=== PATIENT | male | born 1970 | race Caucasian/White ===

== ENCOUNTER 2019-08-09 17:25 | Emergency (ER) | payer OTHER, SELFPAY ==
--- NOTE | 2019-08-09 17:39 | ED.NAVMDI ---
HPI - Nausea/Vomiting/Diarrhea General Chief complaint: Nausea/Vomiting/Diarrhea Stated complaint: throwing up Time Seen by Provider: 08/09/19 17:39 Source: patient Mode of arrival: ambulatory Limitations: no limitations History of Present Illness HPI Narrative: 49-year-old man with history of type 2 diabetes comes in today complaining of vomiting and diarrhea which started this morning. States that he has had some abdominal pain since after he started vomiting and he feels thirsty. He has been urinating more often than usual and states that he has had some tarry stools. Is been unable to take his medications today. He is currently under treatment for UTI for which he is taking tetracyclines and metronidazole. MD elicited complaint: nausea, vomiting, diarrhea and abdominal pain Onset (ago): hour(s) (12) Description of vomiting: food contents Description of diarrhea: watery and black tarry Associated nausea: Yes Associated abdominal pain: Yes Location of pain: diffuse Radiation: does not radiate Pain consistency: intermittent Severity: moderate Quality: cramping Exacerbating factors: none Relieving factors: none Context: recent antibiotic use and marijuana use Associated symptoms: nausea/vomiting Treatment prior to arrival: none Related Data Home Medications Medication Instructions Recorded Confirmed metformin 1,000 mg PO BID 07/04/19 08/09/19 Lantus Solostar U-100 Insulin 40 unit SUBCUT QAM 07/05/19 08/09/19 metronidazole 500 mg PO Q8H 08/09/19 08/09/19 omeprazole 20 mg PO BID 08/09/19 08/09/19 tetracycline 500 mg PO QID 08/09/19 08/09/19 Allergies Allergy/AdvReac Type Severity Reaction Status Date / Time No Known Allergies Allergy Verified 07/04/19 02:56 Review of Systems Constitutional: Constitutional: Denies chills, Reports fatigue and Denies fever(s) Eyes: Eyes: Denies change in vision and Denies photophobia ENT: Denies dysphagia, Denies nasal congestion and Denies sore throat Cardiovascular: Cardiovascular: Denies chest pain and Denies radiating jaw, neck or arm pain Respiratory: Respiratory: Denies cough, Denies dyspnea and Denies wheezing Gastrointestinal: Gastrointestinal: Reports abdominal pain, Reports diarrhea, Reports nausea and Reports vomiting Genitourinary: Genitourinary: Denies hematuria, Denies oliguria, Denies dysuria and Reports urinary frequency Musculoskeletal: Musculoskeletal: Denies back pain, Denies arthralgias, Denies joint swelling and Denies muscle cramps Integumentary/Breasts: Skin/Breast: Denies pruritus, Denies erythema and Denies rash Neurologic: Denies vertigo, Denies dizziness and Denies syncope Psychiatric: Psychiatric: Denies anxiety and Denies depression Endocrine: Endocrine: Reports fatigue, Reports polydipsia and Reports polyuria Hematologic/Lymphatic: Hematologic/Lymphatic: Denies easy bleeding and Denies easy bruising Allergic/Immunologic: Allergic/Immunologic: Denies lip swelling and Denies wheezing PMFSH Past Medical History Medical History (Updated 08/09/19 @ 20:52 by Filippo Galeas MD) Diabetes mellitus GERD (gastroesophageal reflux disease) Surgical History Surgical History H/O hand surgery Social History Social History Additional smoking assessment comments: Smokes marijuana daily Alcohol intake: former Substance use type: marijuana Last use: daily Gender identity (if verbalized by the patient): Male Spiritual care concerns: No Agree to blood products: Yes Exam Const: General: alert and ill appearing ( Mildly) Orientation/consciousness: patient oriented x3 Other: [id number] acute distress. HENMT: Ears: external ears normal, TM's normal bilaterally and EAC's normal Mouth: Yes dry mucous membranes Throat: posterior oropharynx normal ( except for mild diffuse erythema without edema) Eyes: Cornea:
[2019-08-09 17:45] LABS: Glucose Point of Care 259 (65-105)
[2019-08-09 17:51] VITALS: BP 161/85; PULSE 84; RESP 15; TEMP 37.2; O2SAT 99
[2019-08-09] MEDS: ONDANSETRON INJ 4 MG/2 ML VIAL IV PUSH (18:02)
[2019-08-09] MEDS: SODIUM CHLORIDE 0.9% IV 1,000 ML 999 ML IV CONT (18:02)
[2019-08-09 18:03] VITALS: BP 131/58; BP 137/82; PULSE 75; PULSE 99
[2019-08-09 18:03] LABS: Basophils Absolute Auto 0.03 K/mm3 (0.00-0.10); Basophils Percent Auto 0.2 % (0.0-1.0); Hematocrit 43.7 % (40.0-54.0); Hemoglobin 15.4 g/dL (14.0-18.0); Immature Granulocyte Absolute 0.06 K/mm3 (0.00-0.00); Immature Granulocyte Percent A 0.5 % (0.0-0.0); Lymphocytes Absolute Auto 0.59 K/mm3 (1.10-4.50); Lymphocytes Percent Auto 4.9 % (18.0-42.0); Mean Corpuscular HGB Conc 35.2 g/dL (32.0-36.0); Mean Corpuscular Volume 88.1 fL (78.0-102.0); Mean Platelet Volume 12.2 fl (8.7-11.0); Monocytes Percent Auto 0.8 % (2.0-11.0); Neutrophils Absolute Auto 11.3 K/mm3 (1.7-7.2); Neutrophils Percent Auto 93.6 % (50.0-70.0); Platelet Count Result 177 K/mm3 (150-420); Red Blood Count 4.96 M/mm3 (4.70-6.10); Red Cell Distribution Width 11.7 % (11.6-14.4); White Blood Count 12.1 K/mm3 (4.8-10.8)
[2019-08-09 18:05] VITALS: BP 149/86; PULSE 121
[2019-08-09 18:18] LABS: Alanine Aminotransferase 148 U/L (16-63); Albumin Level 4.6 g/dL (3.4-5.0); Alkaline Phosphatase 71 U/L (46-116); Anion Gap 21.7 mmol/L (7-16); Aspartate Amino Transferase 63 U/L (15-37); Bilirubin,Total 0.7 mg/dL (0.00-1.00); Blood Urea Nitrogen 18 mg/dL (7-18); Calcium 9.3 mg/dL (8.5-10.1); Carbon Dioxide 24 mmol/L (21-32); Chloride 99 mmol/L (98-108); Estimated CRCL calculation 74 ml/min; Estimated Glomerular Filt Rate > 60; Glucose 359 mg/dL (70-99); Lipase 38 U/L (73-393); Osmolality Calculated 307 mOsm/kg (285-295); Potassium 3.7 mmol/L (3.5-5.1); Sodium 141 mmol/L (136-145); Total Protein 7.8 g/dL (6.4-8.2)
[2019-08-09 19:07] LABS: Appearance Urine Clear (Clear); Bilirubin Urine Negative (Negative); Color Urine Yellow (Yellow); Glucose Urine UA 3+ (Negative); Ketones Urine 3+ (Negative); Leukocyte Esterase Ur Negative LEU/UL (Negative); Nitrate Urine Negative (Negative); Protein Urine Trace (Negative); Specific Grav Ur 1.015 (1.010-1.020); Urobilinogen Urine 0.2 mg/dL (0.2-1.0)
[2019-08-09 19:16] LABS: Add Urine Microscopic? YES; Bacteria Urine Trace /hpf; Blood Urine Trace (Negative); RBC Urine 0-2 /hpf (0-2); Squamous Epithelial Cell Urine Rare /hpf (Few); WBC Urine 0-3 /hpf (0-3)
[2019-08-09 20:43] LABS: Occult Blood Negative (Negative)
[2019-08-09 20:59] VITALS: RESP 15
== END 2019-08-09 21:06 | disposition home or self-care (01) ==
PROVIDERS: Emergency Provider Emergency Medicine; PCP Nurse Practitioner
DX: K52.9 Noninfective gastroenteritis and colitis, unspecified (principal); E86.0 Dehydration
CPT/HCPCS: 36415; 80053; 81001; 82272; 83690; 85025; 87040; 87045; 87046; 87324; 87427; 96361; 96374; 99283; 99284; J2405; J7030

== ENCOUNTER 2019-08-10 17:09 | Emergency (ER) | payer OTHER, SELFPAY ==
--- NOTE | ~2019-08-10 | XR_ITS ---
EXAMINATION: XR chest 2V 08/10/2019 19:52 INDICATION: Elevated white blood cell count. Dehydration. PROCEDURE: 2 view chest COMPARISON: 07/21/2018 FINDINGS: The lungs are clear. The cardiomediastinal silhouette is within normal limits. There are no pleural effusions. There is no pneumothorax suspected. IMPRESSION: 1: NO ACUTE CARDIOPULMONARY DISEASE. Reviewed, dictated and finalized at location A. UCTION BROACHING MACHINE OPERATOR
[2019-08-10 17:15] VITALS: BP 174/83; PULSE 107; RESP 20; TEMP 36.8; O2SAT 100
[2019-08-10 17:33] LABS: Appearance Urine Clear (Clear); Bilirubin Urine Negative (Negative); Color Urine Yellow (Yellow); Glucose Urine UA 3+ (Negative); Ketones Urine 3+ (Negative); Leukocyte Esterase Ur Negative LEU/UL (Negative); Nitrate Urine Negative (Negative); Protein Urine Negative (Negative); Specific Grav Ur 1.025 (1.010-1.020); Urobilinogen Urine 0.2 mg/dL (0.2-1.0); pH Urine 5.5 (5.0-8.0)
--- NOTE | 2019-08-10 17:33 | ED.NAVMDI ---
HPI - Nausea/Vomiting/Diarrhea General Chief complaint: Nausea/Vomiting/Diarrhea Stated complaint: vomiting Source: patient Mode of arrival: ambulatory Limitations: no limitations History of Present Illness HPI Narrative: This is a 49-year-old gentleman that presents with nausea vomiting with mild diffuse abdominal pain states that he has been having some watery diarrhea, patient is insulin dependent type 2 diabetic on Lantus 40units. By has some nausea and vomiting has been persistent since last night. Patient had similar symptoms some 24 hours ago was seen in this ER and was sent home with Zofran. The patient was unable to continue his Lantus and continued of the nausea vomiting with diffuse abdominal discomfort and pain. The patient had a workup last night did show a higher blood glucose levels with a anion gap of 21, the nausea vomiting despite Zofran had worsened and the patient thought that it was best to avoid eating and had not been taking his 40units of Lantus. Patient denies any shortness of breath there is no chest pain no dysuria. MD elicited complaint: nausea, vomiting, diarrhea and abdominal pain Pertinent past history: cyclical vomiting Onset (ago): day(s) Description of vomiting: watery and bilious Description of diarrhea: watery Associated nausea: Yes Associated abdominal pain: Yes Location of pain: diffuse Radiation: diffuse Pain consistency: now resolved Severity: mild Quality: cramping Exacerbating factors: vomiting Relieving factors: none Related Data Home Medications Medication Instructions Recorded Confirmed metformin 1,000 mg PO BID 07/04/19 08/10/19 Lantus Solostar U-100 Insulin 40 unit SUBCUT QAM 07/05/19 08/10/19 metronidazole 500 mg PO Q8H 08/09/19 08/10/19 omeprazole 20 mg PO BID 08/09/19 08/10/19 tetracycline 500 mg PO QID 08/09/19 08/10/19 Allergies Allergy/AdvReac Type Severity Reaction Status Date / Time No Known Allergies Allergy Verified 07/04/19 02:56 Review of Systems Review of Systems: All systems reviewed & are unremarkable except as noted in HPI and below PMFSH Past Medical History Medical History Diabetes mellitus GERD (gastroesophageal reflux disease) Surgical History Surgical History H/O hand surgery Family History Family History Grandparent Diabetes mellitus Father Acute myocardial infarction Father Cerebrovascular accident Mother FH: throat cancer Social History Social History Additional smoking assessment comments: Smokes marijuana daily Alcohol intake: former Substance use type: marijuana Last use: daily Gender identity (if verbalized by the patient): Male Spiritual care concerns: No Agree to blood products: Yes Exam Const: General: no acute distress Orientation/consciousness: patient oriented x3 HENMT: Head: normal to inspection Eyes: Cornea: corneas normal Pupils: Equal, round and reactive pupils present EOM: EOMs intact bilaterally Neck: Neck: normal visual inspection Chest: Chest palpation & inspection: normal inspection of the chest Resp: Effort & Inspection: normal respiratory effort Cardio: Rate: regular rate Rhythm: regular rhythm GI: GI Palp: Yes Soft to palpation and Yes Tenderness to palpation present (GI) : Testes: Testes normal Back/Spine/Pelvis: Back: no CVA tenderness Skin: General skin exam: normal color Rashes: no rashes Neuro: General: patient oriented x3, moves all extremities, no meningeal signs and no focal motor deficits Speech: normal speech Extrem: General: normal to inspection Psych: Mental Status: mental status grossly normal Course Course Emergency Course: Patient after reassessment as feeling considerably better with some Zofran and Reglan and with IV
[2019-08-10 17:35] LABS: Add Urine Microscopic? YES; Blood Urine Trace (Negative)
[2019-08-10 17:37] LABS: RBC Urine 0-2 /hpf (0-2); Squamous Epithelial Cell Urine Rare /hpf (Few); WBC Urine 0-3 /hpf (0-3)
[2019-08-10 17:38] LABS: Bacteria Urine Trace /hpf
[2019-08-10] MEDS: ONDANSETRON INJ 4 MG/2 ML VIAL IV PUSH (17:46)
[2019-08-10] MEDS: SODIUM CHLORIDE 0.9% IV 1,000 ML 999 ML IV CONT (17:46)
[2019-08-10 18:04] LABS: Basophils Absolute Auto 0.05 K/mm3 (0.00-0.10); Basophils Percent Auto 0.3 % (0.0-1.0); Eosinophils Absolute Auto 0.01 K/mm3 (0.02-0.50); Eosinophils Percent Auto 0.1 % (1.0-6.0); Hematocrit 46.9 % (40.0-54.0); Hemoglobin 15.9 g/dL (14.0-18.0); Immature Granulocyte Percent A 1.1 % (0.0-0.0); Immature Platelet Fraction Pct 6.4 % (1.0-7.0); Lymphocytes Absolute Auto 1.23 K/mm3 (1.10-4.50); Lymphocytes Percent Auto 6.6 % (18.0-42.0); Mean Corpuscular HGB Conc 33.9 g/dL (32.0-36.0); Mean Corpuscular Hemoglobin 31.4 pg (27.0-31.0); Mean Corpuscular Volume 92.5 fL (78.0-102.0); Mean Platelet Volume 13.2 fl (8.7-11.0); Monocytes Absolute Auto 0.42 K/mm3 (0.10-0.90); Monocytes Percent Auto 2.2 % (2.0-11.0); Neutrophils Absolute Auto 16.8 K/mm3 (1.7-7.2); Neutrophils Percent Auto 89.7 % (50.0-70.0); Platelet Count Result 239 K/mm3 (150-420); Red Blood Count 5.07 M/mm3 (4.70-6.10); Red Cell Distribution Width 11.9 % (11.6-14.4); White Blood Count 18.7 K/mm3 (4.8-10.8)
[2019-08-10] MEDS: METOCLOPRAMIDE HCL INJ 10 MG/2 ML VIAL IV PUSH (18:07)
[2019-08-10 18:18] LABS: Alanine Aminotransferase 118 U/L (16-63); Albumin Level 4.6 g/dL (3.4-5.0); Alkaline Phosphatase 76 U/L (46-116); Anion Gap 35.3 mmol/L (7-16); Aspartate Amino Transferase 31 U/L (15-37); Bilirubin,Total 0.9 mg/dL (0.00-1.00); Blood Urea Nitrogen 36 mg/dL (7-18); Calcium 9.2 mg/dL (8.5-10.1); Carbon Dioxide 10 mmol/L (21-32); Chloride 94 mmol/L (98-108); Estimated Glomerular Filt Rate 47; Lipase 27 U/L (73-393); Potassium 4.3 mmol/L (3.5-5.1); Sodium 135 mmol/L (136-145); Total Protein 7.7 g/dL (6.4-8.2)
[2019-08-10 18:19] LABS: Glucose 562 mg/dL (70-99); Osmolality Calculated 314 mOsm/kg (285-295)
[2019-08-10 18:20] VITALS: BP 138/76; PULSE 114; RESP 20; O2SAT 97
[2019-08-10] MEDS: INSULIN HUMAN REGULAR (*BKC) 100 UNITS/ML 10 UNITS IV PUSH (18:24)
--- NOTE | 2019-08-10 18:28 | PC.NURSE ---
SPOKE WITH PATIENT CONCERNING ADMISSION, PT AGREES - WILL AWAIT ORDERS
--- NOTE | 2019-08-10 18:41 | PC.NURSE ---
ERP WISHES TO TRANSFER PATIENT INSTEAD OF ADMISSION, WILL AWAIT CALL BACK FROM [facility]
[2019-08-10] MEDS: SODIUM CHLORIDE 0.9% IV 1,000 ML 999 ML (18:48)
[2019-08-10 19:03] VITALS: BP 114/61; PULSE 117; RESP 17; O2SAT 97
--- NOTE | 2019-08-10 19:03 | PC.NURSE ---
FSBS [id number]
[2019-08-10 19:25] VITALS: BP 137/82; PULSE 114; RESP 17; O2SAT 96
--- NOTE | 2019-08-10 19:32 | PC.NURSE ---
FSBS [id number]
[2019-08-10] MEDS: SODIUM CHLORIDE 0.9% IV 1,000 ML 200 ML (19:34)
--- NOTE | 2019-08-10 20:08 | PC.NURSE ---
INSULIN DRIP INFUSING AT THIS TIME RIGHT HAND, UNABLE TO CO-SIGN WITH EVA MLUTANI D/T NOT HAVING BARCODE
[2019-08-10 20:35] VITALS: BP 135/69; PULSE 117; RESP 16; O2SAT 98
--- NOTE | 2019-08-10 20:40 | PCDIET ---
INSULIN GTT REMOVED THERE IS NO CRITICAL CARE TO GO ON TRANSPORT WITH EMS
[2019-08-10 21:13] LABS: Glucose Point of Care 416 (65-105)
[2019-08-10 21:13] LABS: Glucose Point of Care 346 (65-105)
== END 2019-08-10 20:40 | disposition short-term general hospital (02) ==
PROVIDERS: Emergency Provider Emergency Medicine; PCP Nurse Practitioner
DX: E13.10 Other specified diabetes mellitus with ketoacidosis without coma (principal); K21.9 Gastro-esophageal reflux disease without esophagitis
CPT/HCPCS: 36415; 71046; 80053; 81001; 83690; 85025; 85055; 96361; 96374; 96375; 99285; J1815; J2405; J2765; J7030

== ENCOUNTER 2019-08-10 21:12 | Inpatient (IN) | payer OTHER, SELFPAY ==
--- NOTE | 2019-08-10 21:12 | ADMGEN ---
This patient, Aj Cox, was admitted to Intensive Care Unit-8. Patient/family oriented to hospital policies and general routines including ID bracelet, bed and alarms, visiting hours, pain management, procedures, bathroom and other care routines, personal items, smoking policy, room service/diet, and visiting hours. Valuables list has been completed. Information on how to activate the Rapid Response Team has been discussed. Patient/Family are encouraged to report perceived risks to care and to ask questions if they do not understand what they are told or what they should do.
[2019-08-10 21:24] VITALS: BP 121/69; PULSE 106; RESP 12; TEMP 37.2
[2019-08-10 21:48] VITALS: BMI 24.4
--- NOTE | 2019-08-10 21:50 | PM.IMHP ---
H&P: HPI History of Present Illness Chief complaint: DKA Narrative: This is a 49-year-old insulin-dependent diabetic male who presented to our hospital as a direct admission from [facility] secondary to acute diabetic ketoacidosis. The patient has had ongoing nausea and vomiting for the past 2 days. His last normal meal was Wednesday night when he ate dinner. The next day he developed significant nausea and vomiting. He does report that recently he had been diagnosed with a kidney infection and has been on antibiotics from his PCP. The patient was seen at [facility] yesterday and was sent home at 10:00 p.m. when he was able to tolerate a half a glass of soda. Routine labs demonstrated that the patient was in acute DKA yesterday as well. The patient returned to the hospital today as he continued to have ongoing nausea, vomiting, and upset stomach. He also reports increased urination over the past few days. He admits that he has not been taking his insulin for the past few days since he has not been able to keep any food down. He denies any type of fevers or chills, sore throat, cough, chest pain, leg swelling, dysuria, hematuria, diarrhea, or rectal bleeding. The patient has had diffuse mild abdominal discomfort which she believes is secondary to his retching. Today it at [facility] routine labs were obtained again and demonstrated that the patient was in acute DKA with an elevated gap 35 and a blood glucose of 562 mg/dL. The patient was treated with 2 L of normal saline IV bolus and was started on an insulin drip. We been asked to admit the patient to our hospital for ongoing care in our intensive care unit. Welding Lead Burner, Dr. Francisco has been consulted. Review of Systems Review of Systems: All systems reviewed & are unremarkable except as noted in HPI and below PMFSH Past Medical History Medical History Diabetes mellitus GERD (gastroesophageal reflux disease) Surgical History Surgical History H/O hand surgery Family History Family History Grandparent Diabetes mellitus Father Acute myocardial infarction Father Cerebrovascular accident Mother FH: throat cancer Social History Social History Smoking status: Never smoker Additional smoking assessment comments: Smokes marijuana daily Alcohol intake: never Substance use: current Substance use type: marijuana Last use: daily Gender identity (if verbalized by the patient): Male Spiritual care concerns: No Agree to blood products: Yes Meds Home Medications and Allergies Home Medications Medication Instructions Recorded Confirmed Type metformin 1,000 mg PO BID 07/04/19 08/10/19 History Lantus Solostar U-100 Insulin 40 unit SUBCUT QAM 07/05/19 08/10/19 History metronidazole 500 mg PO Q8H 08/09/19 08/10/19 History omeprazole 20 mg PO BID 08/09/19 08/10/19 History ondansetron 4 mg PO Q6H PRN #14 tablet 08/09/19 08/10/19 Rx tetracycline 500 mg PO QID 08/09/19 08/10/19 History buspirone 15 mg PO BID 08/10/19 08/10/19 History trazodone 100 mg PO HS 08/10/19 08/10/19 History Allergies Allergy/AdvReac Type Severity Reaction Status Date / Time No Known Allergies Allergy Verified 07/04/19 02:56 Exam Const: General: cooperative, healthy appearing, no acute distress, alert and awake Nutritional Appearance: well nourished Orientation/consciousness: patient oriented x3 HENMT: Head: normal to inspection General nose exam: Normal external nose present Face and sinus: normal facial exam Mouth: Yes Normal oral and palatal mucosa present and Yes oropharynx normal Eyes: Pupils: Equal, round and reactive pupils present EOM: EOMs intact bilaterally Neck: Neck: supple and no JVD Thyroid: thyroid normal Lymphatic: lymphadenopathy not note
[2019-08-10 22:00] VITALS: PULSE 109
[2019-08-10] MEDS: ONDANSETRON INJ 4 MG/2 ML VIAL IV PUSH (22:19)
[2019-08-10] MEDS: SODIUM CHLORIDE 0.9% IV 1,000 ML 150 ML IV CONT (22:19)
[2019-08-10 22:27] LABS: Blood Urea Nitrogen 30 mg/dL (9-20); Calcium 8.4 mg/dL (8.4-10.2); Carbon Dioxide 12 mmol/L (22-30); Chloride 100 mmol/L (98-107); Estimated CRCL calculation 82 ml/min; Estimated Glomerular Filt Rate > 60; Glucose 406 mg/dL (75-110); Phosphorus 2.6 mg/dL (2.5-4.5); Potassium 4.6 mmol/L (3.4-5.0); Sodium 132 mmol/L (137-145)
[2019-08-10 22:32] LABS: Hemoglobin A1C 10.7 % (<5.7)
[2019-08-10] MEDS: INSULIN HUMAN REGULAR (*BKC) 100 UNITS in SODIUM CHLORIDE 0.9% IV 99 ML 6.6 UNITS IV CONT (22:47)
[2019-08-10 22:53] LABS: Glucose Point of Care 391 (65-105)
[2019-08-10 22:58] LABS: Alveolar/Arterial O2 Gradient 27.3 mmHg; Base Excess ABG -13.2 mEq/l (+/-2.0); Fractional Inspired Oxygen 21 %; HCO3 ABG 10.6 mEq/l (22.0-26.0); Oxygen Content ABG 20.1 %vol (16.0-22.0); Oxygen Saturation ABG 97.1 % (95.0-100.0); Oxyhemoglobin 96.2 % THb (90.0-100.0); PCO2 ABG 21.1 mmHg (35.0-45.0); PO2 ABG 97.2 mmHg (80.0-100.0); PO2 FiO2 Ratio Arterial Blood 4.63 %; Total Hemoglobin 14.8 g/dL (12.0-18.0); pH ABG 7.317 (7.350-7.450)
[2019-08-10 22:59] LABS: Device ROOM AIR; Site Drawn LEFT BRACHIAL
[2019-08-10 23:06] LABS: Beta-Hydroxybutyrate/Acetoacetate 6.66 mmol/L (0.02-0.27)
[2019-08-10 23:57] LABS: Glucose Point of Care 363 (65-105)
[2019-08-11] VITALS (9 sets, daily range): BP systolic 102–123; BP diastolic 54–74; PULSE 72–150; RESP 12–18; TEMP 36.7–37; O2SAT 96–99; BMI 24.0
[2019-08-11 00:15] LABS: Add Urine Microscopic? YES; Appearance Urine Clear (Clear); Bilirubin Urine Negative (Negative); Blood Urine 1+ (Negative); Color Urine Straw (Yellow); Glucose Urine UA 3+ mg/dL (Negative); Ketones Urine 2+ mg/dL (Negative); Leukocyte Esterase Ur Negative LEU/UL (NEGATIVE); Mucus Urine Rare /lpf; Nitrate Urine Negative (Negative); Protein Urine Negative (Negative); RBC Urine 0-2 /hpf (0-2); Specific Grav Ur 1.027 (1.001-1.035); Urobilinogen Urine Negative mg/dL (<2.0)
[2019-08-11 00:55] LABS: Glucose Point of Care 303 (65-105)
[2019-08-11 01:55] LABS: Glucose Point of Care 235 (65-105)
[2019-08-11] MEDS: KCL 20 MEQ/D5/0.45% SOD CHL 1,000 ML 150 ML IV CONT (01:55)
[2019-08-11 02:50] LABS: Blood Urea Nitrogen 28 mg/dL (9-20); Calcium 8.2 mg/dL (8.4-10.2); Carbon Dioxide 19 mmol/L (22-30); Chloride 107 mmol/L (98-107); Estimated CRCL calculation 104 ml/min; Estimated Glomerular Filt Rate > 60; Glucose 225 mg/dL (75-110); Sodium 138 mmol/L (137-145)
[2019-08-11 02:52] LABS: Glucose Point of Care 207 (65-105)
[2019-08-11 04:00] LABS: Glucose Point of Care 211 (65-105)
[2019-08-11 05:11] LABS: Glucose Point of Care 175 (65-105)
[2019-08-11 06:07] LABS: Glucose Point of Care 109 (65-105)
[2019-08-11] MEDS: ONDANSETRON INJ 4 MG/2 ML VIAL IV PUSH ×3 (06:38→20:45)
[2019-08-11 06:43] LABS: Blood Urea Nitrogen 25 mg/dL (9-20); Calcium 8.4 mg/dL (8.4-10.2); Carbon Dioxide 22 mmol/L (22-30); Chloride 105 mmol/L (98-107); Estimated CRCL calculation 104 ml/min; Estimated Glomerular Filt Rate > 60; Glucose 120 mg/dL (75-110); Potassium 3.6 mmol/L (3.4-5.0); Sodium 137 mmol/L (137-145)
--- NOTE | 2019-08-11 07:08 | PC.NURSE ---
Addendum entered by Anjali Morales RN 08/11/19 07:17: Oncoming day shift nurse, Jenelle, aware consult is not complete and that callback was requested from Malika. Original Note: Left message for mediator, Malika, regarding new consult. Asked that Malika call back for more details.
[2019-08-11 07:13] LABS: Glucose Point of Care 94 (65-105)
[2019-08-11 08:22] LABS: Glucose Point of Care 116 (65-105)
[2019-08-11] MEDS: INSULIN GLARGINE (*BKC) 100 UNITS/ML 35 UNITS SUB-Q (08:26)
[2019-08-11] MEDS: POTASSIUM CHLORIDE 20 MEQ TABLET 40 MEQ PO (08:27)
[2019-08-11 09:33] LABS: Glucose Point of Care 76 (65-105)
[2019-08-11 10:07] LABS: Glucose Point of Care 92 (65-105)
[2019-08-11 10:59] LABS: Blood Urea Nitrogen 24 mg/dL (9-20); Calcium 8.2 mg/dL (8.4-10.2); Carbon Dioxide 25 mmol/L (22-30); Chloride 102 mmol/L (98-107); Estimated CRCL calculation 104 ml/min; Estimated Glomerular Filt Rate > 60; Glucose 98 mg/dL (75-110); Potassium 3.8 mmol/L (3.4-5.0); Sodium 135 mmol/L (137-145)
[2019-08-11 12:32] LABS: Glucose Point of Care 108 (65-105)
--- NOTE | 2019-08-11 14:20 | WPDCNINT ---
Assessment and Plan Assessment and plan (1) DKA (diabetic ketoacidoses): Code(s): E11.10 - Type 2 diabetes mellitus with ketoacidosis without coma Status: Acute Assessment and Plan: patient presented [facility] [place] with nausea, vomiting, diarrhea with dehydration. Patient was found to be in DKA, was given IV fluids and transferred to the ICU at [facility] for insulin infusion. Patient was given additional IV fluid bolus upon arrival last night to the ICU. - Anion gap is closed, blood sugars have been stable, will transition patient to long-acting insulin and sliding scale insulin - primary special educator and dietitian to evaluate the patient - hemoglobin A1c is 10.7 on this admission - patient is probably noncompliant with his medications (2) Nausea and vomiting: Qualifiers: Vomiting type: unspecified Vomiting Intractability: non-intractable Qualified Code(s): R11.2 - Nausea with vomiting, unspecified Code(s): R11.2 - Nausea with vomiting, unspecified Status: Acute Assessment and Plan: nausea continues but vomiting has resolved. Patient has Zofran p.r.n., will continue to monitor (3) Dehydration: Code(s): E86.0 - Dehydration Status: Acute Assessment and Plan: patient was adequately fluid resuscitated, dehydration is resolved, urine output has been adequate and renal functions are much improved. (4) Leukocytosis: Qualifiers: Leukocytosis type: unspecified Qualified Code(s): D72.829 - Elevated white blood cell count, unspecified Code(s): D72.829 - Elevated white blood cell count, unspecified Status: Acute Assessment and Plan: Likely reactive (5) GERD (gastroesophageal reflux disease): Qualifiers: Esophagitis presence: esophagitis presence not specified Qualified Code(s): K21.9 - Gastro-esophageal reflux disease without esophagitis Code(s): K21.9 - Gastro-esophageal reflux disease without esophagitis Status: Chronic Assessment and Plan: continue omeprazole (6) Acute renal failure: Qualifiers: Acute renal failure type: unspecified Qualified Code(s): N17.9 - Acute kidney failure, unspecified Code(s): N17.9 - Acute kidney failure, unspecified Status: Acute Assessment and Plan: RESOLVED: likely related to dehydration nausea vomiting diarrhea. Patient was adequately fluid resuscitated creatinine back to normal (7) DVT prophylaxis: Code(s): Z29.9 - Encounter for prophylactic measures, unspecified Status: Acute Assessment and Plan: SCDs Additional Plan discussed with patient updated with his condition and plan of care. Answered all questions And he is aware that he will be transitioned to long-acting insulin and sliding scale insulin. Code status: Full code Critical care time spent: 36 minutes Due to a high probability of clinically significant, life threatening deterioration, the patient required my highest level of preparedness to intervene emergently and I personally spent this critical care time directly and personally managing the patient. This critical care time included obtaining a history; examining the patient; pulse oximetry; ordering and review of studies; arranging urgent treatment with development of a management plan; evaluation of patient's response to treatment; frequent reassessment; and discussions with other providers. It was exclusive of separately billable procedures and treating other patients and teaching time. Please see Assessment and Plan section and the rest of the note for further information on patient assessment and treatment Linen Aide Consult Note Consult date: 08/11/19 Time Seen: 07:03 Reason for consult: diabetic ketoacidosis, nausea, vomiting, diarrhea, dehydration HPI: Aj Cox is a 49 year old male with significant past medical history of diabetes mellitus, g
[2019-08-11 15:31] LABS: Blood Urea Nitrogen 21 mg/dL (9-20); Calcium 8.5 mg/dL (8.4-10.2); Carbon Dioxide 25 mmol/L (22-30); Chloride 103 mmol/L (98-107); Estimated CRCL calculation 104 ml/min; Estimated Glomerular Filt Rate > 60; Glucose 107 mg/dL (75-110); Potassium 3.9 mmol/L (3.4-5.0); Sodium 137 mmol/L (137-145)
--- NOTE | 2019-08-11 16:25 | PC.NURSE ---
This patient, Aj Cox, was transferred to [facility] on 08/11/19 at 1625. Personal belongings sent with patient. Report given to EVA Donald. Appropriate documentation sent with patient.
--- NOTE | 2019-08-11 16:26 | PC.NURSE ---
This patient, Aj Cox, was received from ICU-08 on 08/11/19 at 1625. Personal belongings list checked and signed. Patient/family oriented to unit policies and routines
[2019-08-11 17:35] LABS: Glucose Point of Care 101 (65-105)
[2019-08-11] MEDS: busPIRone HCL 5 MG TABLET 15 MG PO (20:42)
[2019-08-11] MEDS: PANTOPRAZOLE 40 MG TABLET PO (20:42)
[2019-08-11 20:54] LABS: Glucose Point of Care 124 (65-105)
[2019-08-12 06:00] VITALS: BP 123/77; PULSE 92; RESP 16; TEMP 36.6; O2SAT 97
[2019-08-12 06:32] LABS: Basophils Percent Auto 0.2 % (0.2-1.2); Eosinophils Percent Auto 0.2 % (0-4.4); Hematocrit 41.4 % (42.0-52.0); Hemoglobin 14.1 g/dL (14.0-18.0); Immature Granulocyte Absolute 0.08 K/mm3 (0.00-0.031); Immature Granulocyte Percent A 0.7 % (0-0.5); Lymphocytes Absolute Auto 1.25 K/mm3 (0.9-3.2); Lymphocytes Percent Auto 10.2 % (18.3-44.2); Mean Corpuscular HGB Conc 34.1 g/dl (32-36); Mean Corpuscular Hemoglobin 30.5 pg (26-34); Mean Corpuscular Volume 89.6 fl (80-100); Mean Platelet Volume 11.8 fl (7.4-10.4); Monocytes Absolute Auto 0.6 K/mm3 (0.1-0.6); Monocytes Percent Auto 4.6 % (2.6-8.5); Neutrophils Absolute Auto 10.3 K/mm3 (1.3-6.7); Neutrophils Percent Auto 84.1 % (45.5-73.1); Platelet Count Result 181 k/mm3 (150-375); Red Blood Count 4.62 M/mm3 (4.6-6.20); Red Cell Distribution Width 12.2 % (11.5-14.5); White Blood Count 12.2 K/mm3 (4.5-10.0)
[2019-08-12 06:42] LABS: Blood Urea Nitrogen 19 mg/dL (9-20); Calcium 8.2 mg/dL (8.4-10.2); Carbon Dioxide 26 mmol/L (22-30); Chloride 98 mmol/L (98-107); Estimated CRCL calculation 104 ml/min; Estimated Glomerular Filt Rate > 60; Glucose 178 mg/dL (75-110); Magnesium 2.1 mg/dL (1.6-2.3); Phosphorus 2.7 mg/dL (2.5-4.5); Potassium 3.8 mmol/L (3.4-5.0); Sodium 134 mmol/L (137-145)
[2019-08-12] MEDS: ONDANSETRON INJ 4 MG/2 ML VIAL IV PUSH ×2 (07:31→14:07)
[2019-08-12 07:40] LABS: Glucose Point of Care 187 (65-105)
[2019-08-12] MEDS: PANTOPRAZOLE 40 MG TABLET PO ×2 (08:48→19:50)
[2019-08-12] MEDS: busPIRone HCL 5 MG TABLET 15 MG PO ×2 (08:49→19:49)
[2019-08-12] MEDS: INSULIN GLARGINE (*BKC) 100 UNITS/ML 35 UNITS SUB-Q (08:51)
[2019-08-12 12:52] LABS: Glucose Point of Care 221 (65-105)
[2019-08-12] MEDS: INSULIN ASPART (*BKC) 100 UNITS/ML SUB-Q ×2 (12:58→18:04)
[2019-08-12 14:40] VITALS: BP 127/69; PULSE 65; RESP 16; TEMP 37.1; O2SAT 95
--- NOTE | 2019-08-12 17:24 | PM.IMPN ---
Progress Note: A&P Assessment and Plan (1) DKA (diabetic ketoacidoses): Qualifiers: Diabetes mellitus complication detail: without coma Diabetes mellitus type: other specified (including MANPREET) Qualified Code(s): E13.10 - Other specified diabetes mellitus with ketoacidosis without coma Code(s): E11.10 - Type 2 diabetes mellitus with ketoacidosis without coma Status: Inactive Assessment and Plan: Likely secondary to medical non adherence to insulin therapy. Pt has started a diet but is very nauseated after starting the diet unable to advance diet, will keep him here today, continue antiemetics and fluids if necessary (2) Dehydration: Code(s): E86.0 - Dehydration Status: Acute Assessment and Plan: Continue IV hydration (3) Nausea and vomiting: Qualifiers: Vomiting type: unspecified Vomiting Intractability: non-intractable Qualified Code(s): R11.2 - Nausea with vomiting, unspecified Code(s): R11.2 - Nausea with vomiting, unspecified Status: Acute Assessment and Plan: IV hydration. Antiemetics as needed. (4) Leukocytosis: Qualifiers: Leukocytosis type: unspecified Qualified Code(s): D72.829 - Elevated white blood cell count, unspecified Code(s): D72.829 - Elevated white blood cell count, unspecified Status: Acute Assessment and Plan: Likely secondary to acute DKA. (5) Acute renal failure: Qualifiers: Acute renal failure type: unspecified Qualified Code(s): N17.9 - Acute kidney failure, unspecified Code(s): N17.9 - Acute kidney failure, unspecified Status: Resolved Assessment and Plan: Likely secondary to acute dehydration. (6) GERD (gastroesophageal reflux disease): Qualifiers: Esophagitis presence: esophagitis presence not specified Qualified Code(s): K21.9 - Gastro-esophageal reflux disease without esophagitis Code(s): K21.9 - Gastro-esophageal reflux disease without esophagitis Status: Chronic Assessment and Plan: Resume PPI therapy Subjective Date/time seen: 08/12/19 17:24 Interval history: This is a 49-year-old insulin-dependent diabetic male who presented to our hospital as a direct admission from [facility] secondary to acute diabetic ketoacidosis. The patient has had ongoing nausea and vomiting for the past 2 days. Review of Systems Review of Systems: All systems reviewed & are unremarkable except as noted in HPI and below Gastrointestinal: Gastrointestinal: Reports nausea and Reports vomiting Exam Const: General: cooperative, healthy appearing, no acute distress, alert and awake Nutritional Appearance: well nourished Orientation/consciousness: patient oriented x3 HENMT: Head: normal to inspection General nose exam: Normal external nose present Face and sinus: normal facial exam Mouth: Yes Normal oral and palatal mucosa present and Yes oropharynx normal Eyes: Pupils: Equal, round and reactive pupils present EOM: EOMs intact bilaterally Neck: Neck: supple and no JVD Thyroid: thyroid normal Lymphatic: lymphadenopathy not noted Resp: Effort & Inspection: normal respiratory effort Auscultation: clear to auscultation bilaterally Cardio: Rate: regular rate Rhythm: regular rhythm Heart sounds: no murmurs GI: Inspection: normal to inspection Auscultation: normal bowel sounds Skin: General skin exam: normal color and no rashes or lesions noted Neuro: General: patient oriented x3 Cranial nerves: Yes CN's II-XII intact bilaterally and Yes Equal, round and reactive pupils present Speech: normal speech Motor exam (neuro): 5/5 motor strength present throughout Sensory Exam: normal sensation Extrem: General: normal to inspection and no edema Psych: Mental Status: mental status grossly normal Affect: normal affect Objective Data Vital Signs Vital Signs: Vital Signs - 24 hr 08/11/19 21:51 08/12/19 0
[2019-08-12 17:37] LABS: Glucose Point of Care 204 (65-105)
[2019-08-12] MEDS: LACTATED RINGERS 1,000 ML 100 ML IV CONT (19:12)
[2019-08-12 22:00] VITALS: BP 102/61; PULSE 69; RESP 16; TEMP 37.3; O2SAT 96
[2019-08-13 01:23] LABS: Glucose Point of Care 224 (65-105)
[2019-08-13] MEDS: LACTATED RINGERS 1,000 ML 100 ML IV CONT (05:42)
[2019-08-13 06:00] VITALS: BP 127/79; PULSE 80; RESP 16; TEMP 36.8; O2SAT 98
[2019-08-13] MEDS: ONDANSETRON INJ 4 MG/2 ML VIAL IV PUSH ×2 (06:57→14:49)
[2019-08-13 08:09] LABS: Blood Urea Nitrogen 15 mg/dL (9-20); Calcium 8.2 mg/dL (8.4-10.2); Carbon Dioxide 30 mmol/L (22-30); Chloride 96 mmol/L (98-107); Estimated CRCL calculation 104 ml/min; Estimated Glomerular Filt Rate > 60; Glucose 180 mg/dL (75-110); Potassium 3.4 mmol/L (3.4-5.0); Sodium 134 mmol/L (137-145)
[2019-08-13 08:10] LABS: Hematocrit 41.4 % (42.0-52.0); Hemoglobin 14.2 g/dL (14.0-18.0); Mean Corpuscular HGB Conc 34.3 g/dl (32-36); Mean Corpuscular Hemoglobin 30.7 pg (26-34); Mean Corpuscular Volume 89.6 fl (80-100); Mean Platelet Volume 11.6 fl (7.4-10.4); Platelet Count Result 159 k/mm3 (150-375); Red Blood Count 4.62 M/mm3 (4.6-6.20); Red Cell Distribution Width 11.9 % (11.5-14.5)
[2019-08-13] MEDS: PANTOPRAZOLE 40 MG TABLET PO (08:14)
[2019-08-13] MEDS: busPIRone HCL 5 MG TABLET 15 MG PO (08:14)
[2019-08-13] MEDS: INSULIN GLARGINE (*BKC) 100 UNITS/ML 35 UNITS SUB-Q (08:15)
[2019-08-13 08:54] LABS: Glucose Point of Care 179 (65-105)
[2019-08-13] MEDS: INSULIN ASPART (*BKC) 100 UNITS/ML SUB-Q (12:11)
[2019-08-13 12:15] LABS: Glucose Point of Care 250 (65-105)
--- NOTE | 2019-08-13 12:28 | PM.DS ---
DS: Diagnosis Admitting Diagnosis Admitting Diagnosis: Other specified diabetes mellitus with ketoacidosis without coma Discharge Diagnosis (1) DKA (diabetic ketoacidoses): Qualifiers: Diabetes mellitus complication detail: without coma Diabetes mellitus type: other specified (including MANPREET) Qualified Code(s): E13.10 - Other specified diabetes mellitus with ketoacidosis without coma Code(s): E11.10 - Type 2 diabetes mellitus with ketoacidosis without coma Status: Inactive Assessment and Plan: Likely secondary to medical non adherence to insulin therapy. Pt has started a diet but is very nauseated after starting the diet. Monitored on the medical floor pt feels better no nausea or vomiting today, stable for discharge.Compliance to medication adviced. Pt to use lantus 35 units as night solostar pen. (2) Dehydration: Code(s): E86.0 - Dehydration Status: Acute Assessment and Plan: Continue IV hydration (3) Nausea and vomiting: Qualifiers: Vomiting type: unspecified Vomiting Intractability: non-intractable Qualified Code(s): R11.2 - Nausea with vomiting, unspecified Code(s): R11.2 - Nausea with vomiting, unspecified Status: Resolved Assessment and Plan: Resolved after IV hydration. And Antiemetics as needed. (4) Leukocytosis: Qualifiers: Leukocytosis type: unspecified Qualified Code(s): D72.829 - Elevated white blood cell count, unspecified Code(s): D72.829 - Elevated white blood cell count, unspecified Status: Resolved Assessment and Plan: Likely secondary to acute DKA. (5) Acute renal failure: Qualifiers: Acute renal failure type: unspecified Qualified Code(s): N17.9 - Acute kidney failure, unspecified Code(s): N17.9 - Acute kidney failure, unspecified Status: Resolved Assessment and Plan: Likely secondary to acute dehydration. (6) GERD (gastroesophageal reflux disease): Qualifiers: Esophagitis presence: esophagitis presence not specified Qualified Code(s): K21.9 - Gastro-esophageal reflux disease without esophagitis Code(s): K21.9 - Gastro-esophageal reflux disease without esophagitis Status: Chronic Assessment and Plan: Resume PPI therapy DS: Summary Time Spent with Patient Time attestation: Total time spent providing and/or coordinating discharge services:38 minutes on day of discharge Exam Const: General: cooperative, healthy appearing, no acute distress, alert and awake Nutritional Appearance: well nourished Orientation/consciousness: patient oriented x3 HENMT: Head: normal to inspection General nose exam: Normal external nose present Face and sinus: normal facial exam Mouth: Yes Normal oral and palatal mucosa present and Yes oropharynx normal Eyes: Pupils: Equal, round and reactive pupils present EOM: EOMs intact bilaterally Neck: Neck: supple and no JVD Thyroid: thyroid normal Lymphatic: lymphadenopathy not noted Resp: Effort & Inspection: normal respiratory effort Auscultation: clear to auscultation bilaterally Cardio: Rate: regular rate Rhythm: regular rhythm Heart sounds: no murmurs GI: Inspection: normal to inspection Auscultation: normal bowel sounds Skin: General skin exam: normal color and no rashes or lesions noted Neuro: General: patient oriented x3 Cranial nerves: Yes CN's II-XII intact bilaterally and Yes Equal, round and reactive pupils present Speech: normal speech Motor exam (neuro): 5/5 motor strength present throughout Sensory Exam: normal sensation Extrem: General: normal to inspection and no edema Psych: Mental Status: mental status grossly normal Affect: normal affect DS: Data Data Completed and Pending Labs on day of discharge: Labs from last 24 hours 08/13/19 08/13/19 08/13/19 12:10 07:31 07:31 WBC 7.0 RBC 4.62 Hgb 14.2 Hct 41.4 L MCV 89.6 MCH 30.7
== END 2019-08-13 15:15 | disposition home or self-care (01) | DRG 420 ==
LOC: ANHICU 08-11 13:01 → ANH3MEDSUR 08-13 12:28 → ANHICU 08-16 13:19
PROVIDERS: Internal Medicine; Admitting Provider Family Medicine; PCP Nurse Practitioner; Visit Provider Family Medicine
DX: E11.10 Type 2 diabetes mellitus with ketoacidosis without coma (principal); Z79.4 Long term (current) use of insulin; K21.9 Gastro-esophageal reflux disease without esophagitis; E86.0 Dehydration; N17.9 Acute kidney failure, unspecified; Z91.14 Patient's other noncompliance with medication regimen
CPT/HCPCS: 36415; 36600; 80048; 81001; 82010; 82805; 83036; 83735; 84100; 85025; 85027; 87081; A9270; J1815; J2405; J3480; J7030; J7120

== ENCOUNTER 2020-08-27 17:03 | Emergency (ER) | payer OTHER, SELFPAY ==
[2020-08-27 17:13] VITALS: BP 144/79; PULSE 89; RESP 17; TEMP 35.3; O2SAT 100
[2020-08-27 17:28] LABS: Basophils Absolute Auto 0.1 K/mm3 (0.0-0.1); Basophils Percent Auto 0.5 % (0.2-1.2); Eosinophils Percent Auto 0.1 % (0-4.4); Hematocrit 49.2 % (42.0-52.0); Hemoglobin 17.4 g/dL (14.0-18.0); Immature Granulocyte Absolute 0.06 K/mm3 (0.00-0.031); Immature Granulocyte Percent A 0.5 % (0-0.5); Lymphocytes Absolute Auto 0.73 K/mm3 (0.9-3.2); Lymphocytes Percent Auto 6.6 % (18.3-44.2); Mean Corpuscular HGB Conc 35.4 g/dl (32-36); Mean Corpuscular Hemoglobin 31.2 pg (26-34); Mean Corpuscular Volume 88.3 fl (80-100); Mean Platelet Volume 12.8 fl (7.4-10.4); Monocytes Absolute Auto 0.2 K/mm3 (0.1-0.6); Monocytes Percent Auto 1.5 % (2.6-8.5); Neutrophils Percent Auto 90.8 % (45.5-73.1); Platelet Count Result 176 k/mm3 (150-375); Red Blood Count 5.57 M/mm3 (4.6-6.20); Red Cell Distribution Width 11.8 % (11.5-14.5); White Blood Count 11.1 K/mm3 (4.5-10.0)
[2020-08-27 17:40] LABS: Alanine Aminotransferase 26 U/L (4-50); Albumin Level 4.6 g/dL (3.5-5.1); Alkaline Phosphatase 87 U/L (38-126); Anion Gap 11 mmol/L (8-16); Aspartate Amino Transferase 26 U/L (17-59); Blood Urea Nitrogen 22 mg/dL (9-20); Calcium 9.6 mg/dL (8.4-10.2); Carbon Dioxide 25 mmol/L (22-30); Chloride 99 mmol/L (98-107); Estimated CRCL calculation 81 ml/min; Estimated Glomerular Filt Rate > 60; Glucose 392 mg/dL (75-110); Lipase 18 U/L (23-300); Potassium 4.3 mmol/L (3.4-5.0); Sodium 135 mmol/L (137-145)
[2020-08-27 17:42] LABS: Add Urine Microscopic? YES; Appearance Urine Clear (Clear); Bilirubin Urine Negative (Negative); Blood Urine Negative (Negative); Color Urine Yellow (Yellow); Glucose Urine UA 3+ mg/dL (Negative); Ketones Urine 2+ mg/dL (Negative); Leukocyte Esterase Ur Negative LEU/UL (Negative); Mucus Urine Rare /lpf; Nitrate Urine Negative (Negative); Protein Urine 2+ mg/dL (Negative); Urobilinogen Urine Negative mg/dL (<2.0); WBC Urine 0-3 /hpf
[2020-08-27 17:57] LABS: Specific Grav Ur 1.036 (1.001-1.035)
--- NOTE | 2020-08-27 17:58 | PC.NURSE ---
called chem, added on 868
--- NOTE | 2020-08-27 18:03 | PCRCNOTE ---
Pt in waiting room unable to obtain venous gas. Will try again when pt arrives to ER room.
[2020-08-27] MEDS: ONDANSETRON HCL ODT 4 MG TABLET PO (18:23)
[2020-08-27 18:36] LABS: Beta-Hydroxybutyrate/Acetoacetate 2.05 mmol/L (0.02-0.27)
[2020-08-27] MEDS: SODIUM CHLORIDE 0.9% IV 1,000 ML 999 ML IV CONT ×2 (19:11→20:16)
[2020-08-27 19:19] VITALS: BP 130/81; PULSE 76; RESP 16; TEMP 36.6; O2SAT 96
[2020-08-27 19:20] LABS: Glucose Point of Care 375 (65-105)
--- NOTE | 2020-08-27 19:23 | PC.NURSE ---
patient resting on stretcher. continues to have vomiting. SL inserted. on BP and O2 monitors. NS started. bedside report given to Tammy VELASQUEZ. no change in patient's condition since triage completed. patient aware of current treatment plan and order for IV insulin. FSBS 374.
[2020-08-27 19:28] LABS: Fractional Inspired Oxygen 21 %; HCO3 VBG 21.8 mEq/l (24.0-30.0); PCO2 VBG 32.6 mmHg (42.0-48.0); PO2 VBG 35.7 mmHg (35.0-45.0); pH VBG 7.444 (7.300-7.400)
[2020-08-27 19:29] LABS: Device ROOM AIR
[2020-08-27] MEDS: INSULIN HUMAN REGULAR (*BKC) 100 UNITS/ML 7 UNITS IV PUSH ×2 (19:37→21:24)
[2020-08-27] MEDS: METOCLOPRAMIDE HCL INJ 10 MG/2 ML VIAL IV PUSH (19:53)
[2020-08-27 20:46] LABS: Glucose Point of Care 273 (65-105)
--- NOTE | 2020-08-27 21:51 | ED.NAVMDI ---
HPI - Nausea/Vomiting/Diarrhea General Chief complaint: Nausea/Vomiting/Diarrhea Stated complaint: vomiting Time Seen by Provider: 08/27/20 19:04 Source: patient Mode of arrival: ambulatory Limitations: no limitations History of Present Illness HPI Narrative: 50-year-old male Insulin-dependent diabetic 40 units of long-acting plus mealtime insulin is his usual regimen Complains of a 1 day history of nausea and vomiting, with some mild generalized abdominal discomfort ensuing after he threw up a few times earlier today No fever, no diarrhea He did take 30 units of long-acting insulin this morning Presentation is reminiscent of an episode of DKA about a year ago Did not check his blood sugar at home MD elicited complaint: nausea and vomiting Related Data Home Medications Medication Instructions Recorded Confirmed metformin 1,000 mg PO BID 07/04/19 08/10/19 metronidazole 500 mg PO Q8H 08/09/19 08/10/19 omeprazole 20 mg PO BID 08/09/19 08/10/19 tetracycline 500 mg PO QID 08/09/19 08/10/19 buspirone 15 mg PO BID 08/10/19 08/10/19 trazodone 100 mg PO HS 08/10/19 08/10/19 Allergies Allergy/AdvReac Type Severity Reaction Status Date / Time No Known Allergies Allergy Verified 07/04/19 02:56 REPLACED BY [facility] Past Medical History Medical History (Updated 08/27/20 @ 22:41 by Andrés Fountain MD) Diabetes mellitus GERD (gastroesophageal reflux disease) Surgical History Surgical History H/O hand surgery Family History Family History Grandparent Diabetes mellitus Father Acute myocardial infarction Father Cerebrovascular accident Mother FH: throat cancer Social History Social History Smoking status: Never smoker Additional smoking assessment comments: Smokes marijuana daily Alcohol intake: never Substance use: current Substance use type: marijuana Last use: daily Gender identity (if verbalized by the patient): Male Spiritual care concerns: No Agree to blood products: Yes Course Course Emergency Course: no acidosis and no gap, does have some ketones possibly from vomiting after fluids and insulin x2 bs 225, no further vomiting, tolerating po's Vital Signs Vital signs: Vital Signs Temperature 35.3 C L 08/27/20 17:13 Pulse Rate 89 08/27/20 17:13 Respiratory Rate 17 08/27/20 17:13 Blood Pressure 144/79 H 08/27/20 17:13 Pulse Oximetry 100 08/27/20 17:13 Temperature 36.6 C 08/27/20 19:19 Pulse Rate 76 08/27/20 19:19 Respiratory Rate 16 08/27/20 19:19 Blood Pressure 130/81 08/27/20 19:19 Pulse Oximetry 96 08/27/20 19:19 MDM - Nausea/Vomiting/Diarrhea Lab Data Result diagrams: 08/27/20 17:22 08/27/20 17:22 Labs: Lab Results 08/27/20 08/27/20 08/27/20 Range/Units 17:21 17:22 17:22 WBC 11.1 H (4.5-10.0) K/mm3 RBC 5.57 (4.6-6.20) M/mm3 Hgb 17.4 D (14.0-18.0) g/dL Hct 49.2 (42.0-52.0) % MCV 88.3 (80-100) fl MCH 31.2 (26-34) pg MCHC 35.4 (32-36) g/dl RDW 11.8 (11.5-14.5) % Plt Count 176 (150-375) k/mm3 MPV 12.8 H (7.4-10.4) fl Immature Gran % (Auto) 0.5 (0-0.5) % Neut % (Auto) 90.8 H (45.5-73.1) % Lymph % (Auto) 6.6 L (18.3-44.2) % [place] % (Auto) 1.5 L (2.6-8.5) % Eos % (Auto) 0.1 (0-4.4) % Baso % (Auto) 0.5 (0.2-1.2) % Lymph # (Auto) 0.73 L (0.9-3.2) K/mm3 [place] # (Auto) 0.2 (0.1-0.6) K/mm3 Eos # (Auto) 0.0 (0-0.3) K/mm3 Baso # (Auto) 0.1 (0.0-0.1) K/mm3 Abs Immat Gran (auto) 0.06 H (0.00-0.031) K/mm3 Absolute Neuts (auto) 10.0 H (1.3-6.7) K/mm3 Absolute Nucleated RBC 0.0 (0.0-0.012) K/mm3 Nucleated RBC % 0.0 (0.0-0.2) % Sodium 135 L (137-145) mmol/L Potassium 4.3 (3.4-5.0) mmol/L Chloride 99 (98-107) mmol/L Carbon Dioxi
[2020-08-27 22:13] LABS: Glucose Point of Care 225 (65-105)
[2020-08-27 23:29] VITALS: BP 122/72; PULSE 75; RESP 16; TEMP 36.8; O2SAT 100
== END 2020-08-27 23:31 | disposition home or self-care (01) ==
PROVIDERS: Emergency Medicine; Emergency Provider Emergency Medicine; PCP Nurse Practitioner
DX: E11.65 Type 2 diabetes mellitus with hyperglycemia (principal); R11.2 Nausea with vomiting, unspecified; K21.9 Gastro-esophageal reflux disease without esophagitis; Z79.4 Long term (current) use of insulin
CPT/HCPCS: 36415; 80053; 81001; 82010; 82803; 82948; 83690; 85025; 96361; 96374; 96375; 96376; 99284; A9270; J1815; J2765; J7030

== ENCOUNTER 2021-10-07 09:02 | Emergency (ER) | payer OTHER, SELFPAY ==
--- NOTE | 2021-10-07 09:09 | ED.NAVMDI ---
HPI - Nausea/Vomiting/Diarrhea General Chief complaint: Nausea/Vomiting/Diarrhea Stated complaint: VOMITTING Time Seen by Provider: 10/07/21 09:20 History of Present Illness HPI Narrative: 51-year-old male patient is here with complaints of nausea and vomiting that started around 2:00 a.m. this morning. By this morning the patient is having mostly dry heaving. He denies any diarrhea. He does complain about mild abdominal discomfort. Patient has a known history of type 1 diabetes mellitus and is supposedly on Lantus which she did not take last night. He states that he ate couple of pieces of pizza and was not home to takes medications. He did check his blood sugar this morning and was 400 mg/dL and he gave himself 10 units of Humalog subcutaneously. The blood sugar on recheck in the ER was 250 mg per dL. Patient states that he has had DKA in the past. He denies any other medical problems however he does seem to take medication for anxiety and depression. Patient states that he quit drinking alcohol 3 years ago Related Data Home Medications Medication Instructions Recorded Confirmed omeprazole 20 mg PO BID 08/09/19 10/07/21 buspirone 15 mg PO BID 08/10/19 10/07/21 trazodone 100 mg PO HS 08/10/19 10/07/21 insulin lispro [Humalog KwikPen See Rx Instructions .ROUTE .COMPLEX 10/07/21 10/07/21 Insulin] Allergies Allergy/AdvReac Type Severity Reaction Status Date / Time No Known Allergies Allergy Verified 10/07/21 09:27 Review of Systems Review of Systems: All systems reviewed & are unremarkable except as noted in HPI and below Constitutional: Constitutional: Reports no additional constitutional complaints Eyes: Eyes: Reports no additional eye complaints ENT: Reports system reviewed and no additional complaints, except as documented Cardiovascular: Cardiovascular: Reports no additional cardiovascular complaints Respiratory: Respiratory: Reports no additional respiratory complaints Gastrointestinal: Gastrointestinal: Reports as per HPI Genitourinary: Genitourinary: Reports no additional male genitourinary complaints Musculoskeletal: Musculoskeletal: Reports no additional musculoskeletal complaints Integumentary/Breasts: Skin/Breast: Reports system reviewed and no additional complaints, except as docu Neurologic: Reports system reviewed and no additional complaints, except as documented Psychiatric: Psychiatric: Reports no additional psychiatric complaints Endocrine: Endocrine: Reports no additional endocrine complaints Hematologic/Lymphatic: Hematologic/Lymphatic: Reports no additional hematologic/lymphatic complaints Allergic/Immunologic: Allergic/Immunologic: Reports no additional allergic/immunologic complaints REPLACED BY [facility] Past Medical History Medical History (Updated 10/07/21 @ 10:48 by Cherie Chauhan MD) Diabetes mellitus GERD (gastroesophageal reflux disease) Surgical History Surgical History H/O hand surgery Family History Family History Grandparent Diabetes mellitus Father Acute myocardial infarction Father Cerebrovascular accident Mother FH: throat cancer Social History Social History Smoking status: Never smoker Additional smoking assessment comments: Smokes marijuana daily Alcohol intake: never Substance use: current Substance use type: marijuana Last use: daily Gender identity (if verbalized by the patient): Male Spiritual care concerns: No Agree to blood products: Yes Exam Narrative: patient is alert, anxious and appears in no acute distress. Vital signs are stable. Blood pressure is slightly elevated to 150/79. Patient is afebrile. SpO2 is 100% on room air HEENT: pupils are equal and reactive to light. EOMs are intact. Oral mucous membranes are pink and moist. Neck is Supple chest wall i
[2021-10-07 09:23] VITALS: BP 150/79; PULSE 57; RESP 16; TEMP 35.6; O2SAT 100
[2021-10-07] MEDS: SODIUM CHLORIDE 0.9% IV 1,000 ML 999 ML IV CONT ×2 (09:33→10:32)
[2021-10-07] MEDS: METOCLOPRAMIDE HCL INJ 10 MG/2 ML VIAL IV PUSH (09:34)
[2021-10-07 09:47] LABS: PCO2 VBG 32.6 mmHg (42.0-48.0); PO2 VBG 32.7 mmHg (35.0-45.0); pH VBG 7.49 (7.33-7.43)
[2021-10-07 09:48] LABS: Basophils Absolute Auto 0.03 K/mm3 (0.00-0.10); Basophils Percent Auto 0.4 % (0.0-1.0); Hematocrit 44.4 % (40.0-54.0); Hemoglobin 15.5 g/dL (14.0-18.0); Immature Granulocyte Absolute 0.02 K/mm3 (0.00-0.00); Immature Granulocyte Percent A 0.3 % (0.0-0.0); Lymphocytes Absolute Auto 0.49 K/mm3 (1.10-4.50); Lymphocytes Percent Auto 6.4 % (18.0-42.0); Mean Corpuscular HGB Conc 34.9 g/dL (32.0-36.0); Mean Corpuscular Hemoglobin 30.8 pg (27.0-31.0); Mean Corpuscular Volume 88.3 fL (78.0-102.0); Mean Platelet Volume 12.2 fl (8.7-11.0); Monocytes Absolute Auto 0.12 K/mm3 (0.10-0.90); Monocytes Percent Auto 1.6 % (2.0-11.0); Neutrophils Absolute Auto 7.1 K/mm3 (1.7-7.2); Neutrophils Percent Auto 91.3 % (50.0-70.0); Platelet Count Result 166 K/mm3 (150-420); Red Blood Count 5.03 M/mm3 (4.70-6.10); Red Cell Distribution Width 11.8 % (11.6-14.4); White Blood Count 7.7 K/mm3 (4.8-10.8)
[2021-10-07 09:51] LABS: Device ROOM AIR
[2021-10-07 09:55] LABS: Add Urine Microscopic? YES; Appearance Urine Clear (Clear); Bilirubin Urine Negative (Negative); Blood Urine 1+ (Negative); Color Urine Light Yellow (Yellow); Glucose Urine UA 3+ (Negative); Ketones Urine 3+ (Negative); Leukocyte Esterase Ur Negative LEU/UL (Negative); Nitrate Urine Negative (Negative); Protein Urine 2+ (Negative); Urobilinogen Urine 0.2 mg/dL (0.2-1.0)
[2021-10-07 10:00] LABS: Bacteria Urine Trace /hpf; Squamous Epithelial Cell Urine Rare /hpf (Few); WBC Urine None seen /hpf (0-3)
[2021-10-07 10:02] LABS: Acetone Negative (Negative)
[2021-10-07 10:03] LABS: Alanine Aminotransferase 28 U/L (16-63); Albumin Level 4.2 g/dL (3.4-5.0); Alkaline Phosphatase 63 U/L (46-116); Anion Gap 13 mmol/L (8-16); Aspartate Amino Transferase 16 U/L (15-37); Bilirubin,Total 0.8 mg/dL (0.00-1.00); Blood Urea Nitrogen 17 mg/dL (7-18); Carbon Dioxide 24 mmol/L (21-32); Chloride 100 mmol/L (98-108); Estimated CRCL calculation 80 ml/min; Estimated Glomerular Filt Rate > 60; Glucose 316 mg/dL (70-99); Lipase 18 U/L (73-393); Osmolality Calculated 297 mOsm/kg (285-295); Potassium 3.7 mmol/L (3.5-5.1); Sodium 137 mmol/L (136-145); Total Protein 7.1 g/dL (6.4-8.2)
[2021-10-07] MEDS: ONDANSETRON INJ 4 MG/2 ML VIAL IV PUSH (10:32)
[2021-10-07 11:02] LABS: Glucose Point of Care 306 mg/dl (65-105)
--- NOTE | 2021-10-07 11:04 | PC.NURSE ---
IV fluids finished infusing, IV removed,
[2021-10-07 11:05] VITALS: BP 124/92; PULSE 95; RESP 16; TEMP 36.6; O2SAT 100
--- NOTE | 2021-10-22 15:56 | PC.NURSE ---
LATE ENTRY This note is being entered to document information to the patient's record. The following information was omitted on 10/07/21 by [Elda Cervantes RN 1L on NS infused at 1132 in 10/07/21 ].
== END 2021-10-07 11:15 | disposition home or self-care (01) ==
PROVIDERS: Emergency Provider Emergency Medicine; PCP Nurse Practitioner
DX: E86.0 Dehydration (principal); R11.2 Nausea with vomiting, unspecified
CPT/HCPCS: 36415; 80053; 81001; 82010; 82803; 82948; 83690; 85025; 96361; 96374; 96375; 99284; J2405; J2765; J7030

== ENCOUNTER 2021-10-12 13:12 | Emergency (ER) | payer OTHER, SELFPAY ==
[2021-10-12 13:25] VITALS: BP 137/71; PULSE 67; RESP 20; TEMP 36.9; O2SAT 100
--- NOTE | 2021-10-12 13:34 | ED.NAVMDI ---
HPI - Nausea/Vomiting/Diarrhea General Chief complaint: Nausea/Vomiting/Diarrhea Stated complaint: dehydrated vomitting Time Seen by Provider: 10/12/21 13:35 Source: patient and RN notes reviewed Mode of arrival: ambulatory Limitations: no limitations History of Present Illness HPI Narrative: Patient had similar symptoms 4 days ago and was seen here in the emergency room given some fluids. He did not have any evidence of DKA at that time. He has a history of being in DKA in the past. He says he has had adult onset type 1 diabetes. He was doing well for 4 days and then was Eating normally yesterday. He also smoked marijuana all day yesterday and then today began having vomiting again. He has also been told he has cannabinoid hyperemesis syndrome yet he continues to smoke marijuana daily. While he had not smoked for the past 4 days after his last visit he did not have any vomiting. MD elicited complaint: nausea, vomiting and diarrhea Pertinent past history: cyclical vomiting Onset (ago): day(s) (1) Description of vomiting: watery Description of diarrhea: watery Associated nausea: Yes Associated abdominal pain: No Exacerbating factors: eating Relieving factors: none Associated symptoms: denies other symptoms Related Data Home Medications Medication Instructions Recorded Confirmed omeprazole 20 mg PO BID 08/09/19 10/12/21 buspirone 15 mg PO BID 08/10/19 10/12/21 trazodone 100 mg PO HS 08/10/19 10/12/21 insulin lispro [Humalog KwikPen See Rx Instructions .ROUTE .COMPLEX 10/07/21 10/12/21 Insulin] Allergies Allergy/AdvReac Type Severity Reaction Status Date / Time No Known Allergies Allergy Verified 10/12/21 15:17 Review of Systems Review of Systems: All systems reviewed & are unremarkable except as noted in HPI and below Constitutional: Constitutional: Denies chills and Denies fever(s) Respiratory: Respiratory: Denies cough and Denies dyspnea Genitourinary: Genitourinary: Denies hematuria and Denies dysuria PMFSH Past Medical History Medical History (Updated 10/12/21 @ 15:22 by Andrés Gay MD) Cannabinoid hyperemesis syndrome Diabetes mellitus GERD (gastroesophageal reflux disease) Surgical History Surgical History H/O hand surgery Family History Family History Grandparent Diabetes mellitus Father Acute myocardial infarction Father Cerebrovascular accident Mother FH: throat cancer Social History Social History Smoking status: Never smoker Additional smoking assessment comments: Smokes marijuana daily Alcohol intake: never Substance use: current Substance use type: marijuana Last use: daily Gender identity (if verbalized by the patient): Male Spiritual care concerns: No Agree to blood products: Yes Exam Const: General: healthy appearing, no acute distress and alert Nutritional Appearance: well nourished and thin Orientation/consciousness: patient oriented x3 HENMT: Head: normal to inspection Ears: external ears normal Face and sinus: normal facial exam Mouth: Yes moist mucous membranes Eyes: Cornea: corneas normal Pupils: Equal, round and reactive pupils present EOM: EOMs intact bilaterally Neck: Neck: normal visual inspection Resp: Effort & Inspection: normal respiratory effort Auscultation: clear to auscultation bilaterally Cardio: Rate: regular rate Rhythm: regular rhythm GI: GI Palp: Yes Soft to palpation, No Tenderness to palpation present (GI) and No Guarding due to palpation present (GI) Auscultation: normal bowel sounds Back/Spine/Pelvis: Cervical Spine: cervical ROM normal Thoracic/Lumbar Spine: thoraco-lumbar ROM normal Skin: General skin exam: normal color Rashes: no rashes Neuro: General: patient oriented x3, moves all extremities, no focal motor deficits and CN's II-XI int
[2021-10-12] MEDS: ONDANSETRON INJ 4 MG/2 ML VIAL IV PUSH (13:58)
[2021-10-12] MEDS: LACTATED RINGERS 1,000 ML 999 ML IV CONT ×2 (13:59→15:20)
[2021-10-12 14:09] LABS: Basophils Absolute Auto 0.02 K/mm3 (0.00-0.10); Basophils Percent Auto 0.3 % (0.0-1.0); Eosinophils Absolute Auto 0.03 K/mm3 (0.02-0.50); Eosinophils Percent Auto 0.5 % (1.0-6.0); Hematocrit 41.7 % (40.0-54.0); Hemoglobin 14.7 g/dL (14.0-18.0); Immature Granulocyte Absolute 0.02 K/mm3 (0.00-0.00); Immature Granulocyte Percent A 0.3 % (0.0-0.0); Lymphocytes Absolute Auto 0.69 K/mm3 (1.10-4.50); Lymphocytes Percent Auto 11.3 % (18.0-42.0); Mean Corpuscular HGB Conc 35.3 g/dL (32.0-36.0); Mean Corpuscular Hemoglobin 31.5 pg (27.0-31.0); Mean Corpuscular Volume 89.3 fL (78.0-102.0); Mean Platelet Volume 12.2 fl (8.7-11.0); Monocytes Absolute Auto 0.27 K/mm3 (0.10-0.90); Monocytes Percent Auto 4.4 % (2.0-11.0); Neutrophils Absolute Auto 5.1 K/mm3 (1.7-7.2); Neutrophils Percent Auto 83.2 % (50.0-70.0); Platelet Count Result 153 K/mm3 (150-420); Red Blood Count 4.67 M/mm3 (4.70-6.10); Red Cell Distribution Width 11.8 % (11.6-14.4); White Blood Count 6.1 K/mm3 (4.8-10.8)
[2021-10-12 14:17] LABS: Base Excess ABG 5.7 mmol/L (0-2); HCO3 ABG 26.1 mmol/L (23-29); Oxygen Content ABG 18.9 %vol (16.0-22.0); Oxygen Saturation ABG 97.7 % (95-97); Oxyhemoglobin 96.7 % (94-100); PCO2 ABG 26.6 mmHg (35-45); PO2 ABG 99.8 mmHg (80-90); Total Hemoglobin 13.8 g/dL (12.0-18.0); pH ABG 7.61 (7.35-7.45)
[2021-10-12 14:22] LABS: Device ROOM AIR; Modified Allen's Test Pass; Site Drawn LEFT RADIAL
[2021-10-12 14:28] LABS: Alanine Aminotransferase 32 U/L (16-63); Albumin Level 3.7 g/dL (3.4-5.0); Alkaline Phosphatase 58 U/L (46-116); Anion Gap 7 mmol/L (8-16); Aspartate Amino Transferase 26 U/L (15-37); Bilirubin,Total 0.6 mg/dL (0.00-1.00); Blood Urea Nitrogen 14 mg/dL (7-18); Calcium 8.3 mg/dL (8.5-10.1); Carbon Dioxide 29 mmol/L (21-32); Chloride 102 mmol/L (98-108); Estimated Glomerular Filt Rate > 60; Glucose 262 mg/dL (70-99); Lipase 50 U/L (73-393); Osmolality Calculated 295 mOsm/kg (285-295); Potassium 3.7 mmol/L (3.5-5.1); Sodium 138 mmol/L (136-145); Total Protein 6.3 g/dL (6.4-8.2)
[2021-10-12 14:31] LABS: Lactic Acid Reflex 1.7 mmol/L (0.4-2.0)
[2021-10-12 14:32] LABS: CRP < 0.2 mg/dL (0.0-0.9)
[2021-10-12 14:33] LABS: Acetone SMALL (Negative)
[2021-10-12 16:25] VITALS: BP 156/91; PULSE 70; RESP 20; TEMP 36.8; O2SAT 99
== END 2021-10-12 16:28 | disposition home or self-care (01) ==
PROVIDERS: Emergency Provider Emergency Medicine; PCP Nurse Practitioner
DX: R11.14 Bilious vomiting (principal)
CPT/HCPCS: 36415; 36600; 80053; 82010; 82805; 83605; 83690; 85025; 86140; 96361; 96374; 99284; J2405; J7120

== ENCOUNTER 2021-12-16 13:48 | Emergency (ER) | payer OTHER, SELFPAY ==
--- NOTE | ~2021-12-16 | CT_ITS ---
EXAMINATION: CT abdomen pelvis wo con DATE: 12/16/2021 15:14 INDICATION: N/V TODAY TECHNIQUE: Computed tomography (CT) of the abdomen and pelvis was performed without intravenous contr ast. Automated exposure control and iterative reconstruction technique were employed. The dose-length product was 393.04 mGy-cm. COMPARISON: 07/04/2019. FINDINGS: Lower thorax: Unremarkable Liver: Normal. Biliary/Gallbladder: Gallbladder is normal. No bile duct dilation. Pancreas: No mass or duct dilation. Spleen: Normal. Adrenals:No mass. Kidneys: Nonobstructive left midpole calcification, no mass or hydronephrosis. GI tract: No small or large bowel dilation. Normal appendix. Small hiatal hernia. Mesentery/Peritoneum: No ascites, mass, or free air. Retroperitoneum: No mass. Atherosclerotic calcifications. Pelvis: Bladder wall thickening, possibly due to outlet obstruction from prostatomegaly, pelvic organ s are within normal limits. Soft Tissues: Soft tissues and body wall unremarkable. Bones: No acute osseous finding. IMPRESSION: No acute abdominopelvic process. Reviewed, dictated and finalized at location K.
[2021-12-16 14:24] VITALS: BP 146/88; PULSE 61; RESP 16; TEMP 35.8; O2SAT 99
[2021-12-16 14:40] LABS: Basophils Absolute Auto 0.04 K/mm3 (0.00-0.10); Basophils Percent Auto 0.4 % (0.0-1.0); Eosinophils Absolute Auto 0.01 K/mm3 (0.02-0.50); Eosinophils Percent Auto 0.1 % (1.0-6.0); Hematocrit 44.2 % (40.0-54.0); Hemoglobin 15.3 g/dL (14.0-18.0); Immature Granulocyte Absolute 0.03 K/mm3 (0.00-0.00); Immature Granulocyte Percent A 0.3 % (0.0-0.0); Lymphocytes Absolute Auto 0.65 K/mm3 (1.10-4.50); Lymphocytes Percent Auto 6.9 % (18.0-42.0); Mean Corpuscular HGB Conc 34.6 g/dL (32.0-36.0); Mean Corpuscular Hemoglobin 31.7 pg (27.0-31.0); Mean Corpuscular Volume 91.7 fL (78.0-102.0); Mean Platelet Volume 12.2 fl (8.7-11.0); Monocytes Absolute Auto 0.17 K/mm3 (0.10-0.90); Monocytes Percent Auto 1.8 % (2.0-11.0); Neutrophils Absolute Auto 8.6 K/mm3 (1.7-7.2); Neutrophils Percent Auto 90.5 % (50.0-70.0); Platelet Count Result 160 K/mm3 (150-420); Red Blood Count 4.82 M/mm3 (4.70-6.10); Red Cell Distribution Width 11.8 % (11.6-14.4); White Blood Count 9.5 K/mm3 (4.8-10.8)
[2021-12-16] MEDS: ONDANSETRON INJ 4 MG/2 ML VIAL IV PUSH ×2 (14:40→17:43)
[2021-12-16 14:41] VITALS: BP 147/75; PULSE 64
[2021-12-16 14:42] VITALS: BP 145/89; PULSE 65
[2021-12-16 14:44] VITALS: BP 147/84; PULSE 88
[2021-12-16] MEDS: SODIUM CHLORIDE 0.9% IV 1,000 ML 999 ML IV CONT (14:45)
[2021-12-16 14:56] LABS: Ethanol < 3 mg/dL (0-6)
[2021-12-16 14:58] LABS: Alanine Aminotransferase 26 U/L (16-63); Albumin Level 4.4 g/dL (3.4-5.0); Alkaline Phosphatase 71 U/L (46-116); Anion Gap 7 mmol/L (8-16); Aspartate Amino Transferase 20 U/L (15-37); Bilirubin,Total 0.7 mg/dL (0.00-1.00); Blood Urea Nitrogen 20 mg/dL (7-18); Calcium 9.2 mg/dL (8.5-10.1); Carbon Dioxide 29 mmol/L (21-32); Chloride 102 mmol/L (98-108); Estimated CRCL calculation 87 ml/min; Estimated Glomerular Filt Rate > 60; Glucose 217 mg/dL (70-99); Lipase 29 U/L (73-393); Osmolality Calculated 295 mOsm/kg (285-295); Potassium 3.6 mmol/L (3.5-5.1); Sodium 138 mmol/L (136-145); Total Protein 7.7 g/dL (6.4-8.2)
[2021-12-16 16:04] LABS: Appearance Urine Slightly Cloudy (Clear); Bilirubin Urine Negative (Negative); Color Urine Yellow (Yellow); Glucose Urine UA 3+ (Negative); Ketones Urine 1+ (Negative); Leukocyte Esterase Ur Negative LEU/UL (Negative); Nitrate Urine Negative (Negative); Protein Urine 2+ (Negative); Urobilinogen Urine 0.2 mg/dL (0.2-1.0)
[2021-12-16 16:07] LABS: Add Urine Microscopic? YES; Amorphous Sediment Urine Moderate; Amphetamine Screen Urine Negative (Negative); Bacteria Urine Trace /hpf; Barbiturate Screen Urine Negative (Negative); Benzodiazepines Screen Urine Negative (Negative); Blood Urine Trace-Intact (Negative); Cannabinoid Screen Urine Positive (Negative); Cocaine Screen Urine Negative (Negative); Methadone Screen Urine Negative (Negative); Opiate Screen Urine Negative (Negative); Phencyclidine Screen Urine Negative (Negative); RBC Urine 0-2 /hpf (0-2); Squamous Epithelial Cell Urine Rare /hpf (Few); WBC Urine None seen /hpf (0-3)
--- NOTE | 2021-12-16 17:17 | ED.NAVMDI ---
HPI - Nausea/Vomiting/Diarrhea General Chief complaint: Nausea/Vomiting/Diarrhea Stated complaint: VOMITING DIABETIC Time Seen by Provider: 12/16/21 13:52 Source: patient and RN notes reviewed Limitations: no limitations History of Present Illness MD elicited complaint: nausea, vomiting and diarrhea Onset (ago): day(s) (1) Description of vomiting: watery Description of diarrhea: watery Associated nausea: Yes Associated abdominal pain: Yes Location of pain: epigastric and periumbilical Pain consistency: constant Severity: mild Pain scale (0-10): 5 Quality: cramping, aching and dull Exacerbating factors: none Relieving factors: none Context: marijuana use Associated symptoms: loss of appetite and nausea/vomiting Related Data Home Medications Medication Instructions Recorded Confirmed omeprazole 20 mg capsule,delayed 20 mg PO BID 08/09/19 12/16/21 release buspirone 15 mg tablet 15 mg PO BID 08/10/19 12/16/21 trazodone 100 mg tablet 100 mg PO HS 08/10/19 12/16/21 insulin lispro 100 unit/mL See Rx Instructions .Route .COMPLEX 10/07/21 12/16/21 subcutaneous pen (Humalog KwikPen (U-100) Insulin) Allergies Allergy/AdvReac Type Severity Reaction Status Date / Time No Known Allergies Allergy Verified 12/16/21 14:05 Review of Systems Review of Systems: All systems reviewed & are unremarkable except as noted in HPI and below Constitutional: Constitutional: Reports no additional constitutional complaints Eyes: Eyes: Reports no additional eye complaints ENT: Reports system reviewed and no additional complaints, except as documented Cardiovascular: Cardiovascular: Reports no additional cardiovascular complaints Respiratory: Respiratory: Reports no additional respiratory complaints Gastrointestinal: Gastrointestinal: Reports no additional gastrointestinal complaints Musculoskeletal: Musculoskeletal: Reports no additional musculoskeletal complaints Integumentary/Breasts: Skin/Breast: Reports system reviewed and no additional complaints, except as docu Neurologic: Reports system reviewed and no additional complaints, except as documented Psychiatric: Psychiatric: Reports no additional psychiatric complaints Endocrine: Endocrine: Reports no additional endocrine complaints Hematologic/Lymphatic: Hematologic/Lymphatic: Reports no additional hematologic/lymphatic complaints Allergic/Immunologic: Allergic/Immunologic: Reports no additional allergic/immunologic complaints PMFSH Past Medical History Medical History Cannabinoid hyperemesis syndrome Diabetes mellitus GERD (gastroesophageal reflux disease) Surgical History Surgical History H/O hand surgery Family History Family History Grandparent Diabetes mellitus Father Acute myocardial infarction Father Cerebrovascular accident Mother FH: throat cancer Social History Social History Smoking status: Never smoker Additional smoking assessment comments: Smokes marijuana daily Alcohol intake: never Substance use: current Substance use type: marijuana Last use: daily Gender identity (if verbalized by the patient): Male Spiritual care concerns: No Agree to blood products: Yes Exam Const: General: healthy appearing and no acute distress Nutritional Appearance: well nourished Orientation/consciousness: patient oriented x3 Limitations: no limitations HENMT: Head: normal to inspection Ears: external ears normal, TM's normal bilaterally and EAC's normal General nose exam: Normal external nose present and Normal nares present Face and sinus: normal facial exam and sinuses nontender Mouth: Yes Normal oral and palatal mucosa present and Yes moist mucous membranes Teeth and gingiva: dentition normal Throat: pos
--- NOTE | 2021-12-16 17:36 | PC.NURSE ---
RN to room to discharge pt and he is vomiting. ERP aware and will order another dose of zofran before discharge.
[2021-12-16 17:49] VITALS: BP 104/76; PULSE 68; RESP 18; O2SAT 98
== END 2021-12-16 17:50 | disposition home or self-care (01) ==
PROVIDERS: Emergency Provider Emergency Medicine; PCP Family Medicine
DX: K29.70 Gastritis, unspecified, without bleeding (principal); R11.10 Vomiting, unspecified
CPT/HCPCS: 36415; 74176; 80053; 80307; 81001; 83690; 85025; 96361; 96374; 96376; 99284; J2405; J7030

== ENCOUNTER 2023-06-15 08:56 | Observation (INO) | payer OTHER, SELFPAY ==
[2023-06-15] VITALS (27 sets, daily range): BP systolic 111–176; BP diastolic 62–91; PULSE 96–138; RESP 8–26; TEMP 36.6–36.9; O2SAT 96–100; BMI 25.5
--- NOTE | ~2023-06-15 | MR_ITS ---
EXAMINATION: MR brain/brain stem wo con DATE: 06/16/2023 11:53 INDICATION: Vertigo TECHNIQUE: Magnetic resonance imaging (MRI) of the brain and brainstem was performed without intraven ous contrast. Sequences included sagittal and axial T1-weighted SE, axial diffusion-weighted FS SE, a xial 3D SWAN, axial T2-weighted FLAIR, and axial T2-weighted FSE. Apparent diffusion coefficient (ADC ) maps were created. COMPARISON: Head CT dated 06/15/2023 FINDINGS: There are no areas of restricted diffusion to suggest acute infarction. No intracranial hemorrhage or abnormal intracranial mass lesion. There are no intraparenchymal signal abnormalities seen on the ot her pulse sequences. The ventricles are symmetric and normal in size. There are no abnormal extra-axi al fluid collections. Flow voids are seen in the cerebral arteries on the T2-weighted sequences consi stent with their expected patency. Mucosal thickening in the left maxillary and bilateral ethmoid sin uses. Visualized orbits and soft tissues are unremarkable. IMPRESSION: 1. Normal brain. No acute intracranial process. Reviewed, dictated and finalized at location A. RETTE MAKER
--- NOTE | ~2023-06-15 | US_ITS ---
EXAMINATION: US carotid duplex BI DATE: 06/16/2023 11:26 INDICATION: Vertigo TECHNIQUE: Grayscale, color Doppler, and pulsed Doppler images of the cervical carotid arteries were obtained. The degree of vessel stenosis is placed in one of the following categories: normal, <50%, 5 0-69%, >=70% but less than near-occlusion, near-occlusion, or total occlusion. Note that percent sten osis relative to normal distal artery lumen diameter is indirectly measured from velocity measurement s as described by Jeff, et al. Radiology 2003; 229:340-346. COMPARISON: None. FINDINGS: RIGHT: The right common carotid artery (CCA) peak systolic velocity (PSV) is 96 cm/s. The right internal car otid artery (ICA) PSV is 73 cm/s. The right ICA end-diastolic velocity (EDV) is 16 cm/s. The right IC A/CCA PSV ratio is 0.8. Grayscale and color Doppler images yield an estimate of <50% diameter reducti on from plaque in the ICA. The external carotid artery (ECA) PSV is 88 cm/s. There is antegrade flow in the right vertebral artery. LEFT: The left CCA PSV is 111 cm/s. The left ICA PSV is 75 cm/s. The left ICA EDV is 27 cm/s. The left ICA/ CCA PSV ratio is 0.7. Grayscale and color Doppler images yield an estimate of <50% diameter reduction from plaque in the ICA. The ECA PSV is 95 cm/s. There is antegrade flow in the left vertebral artery . IMPRESSION: 1. <50% stenosis from minimal plaque in the right internal carotid artery. 2. <50% stenosis from minimal plaque in the left internal carotid artery. Reviewed, dictated and finalized at location A. TOP HAT BODY MAKER
--- NOTE | ~2023-06-15 | CT_ITS ---
EXAMINATION: CT BRAIN W/O DATE: 06/15/2023 10:12 INDICATION: Dizziness. TECHNIQUE: Computed tomography (CT) of the head was performed without intravenous contrast. The dose- length product was 605.33 mGy-cm. Automated exposure control and iterative reconstruction technique w ere employed. COMPARISON: No prior studies for comparison. FINDINGS: Normal brain parenchymal volume for age. Normal squires-white differentiation. No acute intrac ranial hemorrhage, infarction, mass or mass effect. No ventriculomegaly or midline shift. Midline sagittal images demonstrate a normal corpus callosum, c raniovertebral junction and sella turcica. Basilar cisterns are patent. Paranasal sinuses and mastoids are pneumatized. No depressed skull fractures. IMPRESSION: 1. No acute intracranial abnormality. Reviewed, dictated and finalized at location D. ING FACILITIES MANAGER
--- NOTE | ~2023-06-15 | XR_ITS ---
Portable chest x-ray Comparison: 08/10/2019 Clinical History: Dizziness Findings: Lungs are clear, without focal consolidation or pleural effusion. Cardiomediastinal silho uette is stable. Bones and soft tissues are unremarkable. Impression: Normal chest. Reviewed, dictated and finalized at [facility]. NESS UNIT DIRECTOR Impression: Normal chest.
--- NOTE | 2023-06-15 10:02 | ED.GENADULT ---
HPI - General Adult General Chief complaint: Dizziness Stated complaint: VERTIGO,NAUSEA Time Seen by Provider: 06/15/23 09:40 History of Present Illness HPI narrative: 53-year-old male presenting to the emergency department for evaluation of persistent vertigo. Patient does have history of poorly controlled diabetes. Patient reports he was in [facility] emergency department on Wednesday for persistent nausea and vomiting. Patient reports that the nausea and vomiting returned and on Wednesday he was seen for new onset of vertigo. Patient reports that the medications he was treated with Wednesday did seem to help at the time but his symptoms worsened when he got home. Patient does describe a spinning sensation that is worsened with movement. Patient denies any focal numbness or weakness. Patient states that he is still having some nausea and vomiting. Patient also was concerned that he coughed up some dark sputum. Related Data Home Medications Medication Instructions Recorded Confirmed omeprazole 20 mg capsule,delayed 20 mg PO BID 08/09/19 06/15/23 release buspirone 15 mg tablet 15 mg PO BID 08/10/19 06/15/23 trazodone 100 mg tablet 100 mg PO HS 08/10/19 06/15/23 insulin lispro 100 unit/mL See Rx Instructions .Route .COMPLEX 10/07/21 06/15/23 subcutaneous pen (Humalog KwikPen (U-100) Insulin) atorvastatin 20 mg tablet 20 mg PO ONCE 06/15/23 06/15/23 insulin glargine 100 unit/mL (3 24 unit subcut QHS 06/15/23 06/15/23 mL) subcutaneous pen (Lantus Solostar U-100 Insulin) linaclotide 145 mcg capsule 145 mcg PO ONCE PRN Abdominal 06/15/23 06/15/23 (Linzess) Discomfort meclizine 25 mg tablet 25 mg PO DAILY PRN Dizziness Or 06/15/23 06/15/23 Vertigo metoclopramide HCl 10 mg tablet 10 mg PO Q6H PRN Nausea And 06/15/23 06/15/23 Vomiting metoclopramide HCl 5 mg tablet 5 mg PO DAILY 06/15/23 06/15/23 ondansetron 4 mg disintegrating 4 mg PO Q8H nausea 06/15/23 06/15/23 tablet sennosides 8.6 mg tablet (Azalea-nunu) 8.6 mg PO BID 06/15/23 06/15/23 Allergies Allergy/AdvReac Type Severity Reaction Status Date / Time No Known Allergies Allergy Verified 12/16/21 14:05 Review of Systems Review of Systems: All systems reviewed & are unremarkable except as noted in HPI and below PMFSH Past Medical History Medical History (Updated 06/15/23 @ 16:55 by Avelina Queen PA-C) Cannabinoid hyperemesis syndrome Gastroesophageal reflux disease Insulin dependent diabetes mellitus Surgical History Surgical History (Updated 06/15/23 @ 16:49 by Avelina Queen PA-C) History of colonoscopy Family History Family History Grandparent Diabetes mellitus Father Acute myocardial infarction Father Cerebrovascular accident Mother FH: throat cancer Social History Social History (Updated 06/15/23 @ 16:51 by Avelina Queen PA-C) Social History: Surrogate medical decision maker: Kemi Cox, daughter. Code status: Full code. Smoking status: Never smoker Alcohol intake: never Substance use: current Substance use type: marijuana Lack of Transportation: No Lack of Food: Never True Current Housing: I Have Housing Concerned About Future Housing: No Difficulty Paying Gas/Electric Bills: No Difficulty Paying for Meds: No Currently Unemployed: No Education: Trade/Vocational Certificate Difficulty w/ Childcare or Family Care: No Additional living arrangements comments: Lives in [place]. Additional occupation/education comments: [employer]. Spiritual care concerns: No Agree to blood products: Yes Exam Narrative: APPEARANCE: Well appearing, no pain, no distress, well-nourished. HEAD: normocephalic, atraumatic. EYES: PERRLA/EOMI, conjunctivae clear. NOSE: Normal no drainage EARS:TMS clear with good light reflex. THROAT: Pharynx clear, no exudate. NECK: Supple. No adenopathy, no masses. RESPIRATORY: Airway
[2023-06-15] MEDS: diazePAM INJ (*CRX) 10 MG/2 ML SYRINGE 2 MG IV PUSH (10:25)
[2023-06-15] MEDS: SODIUM CHLORIDE 0.9% IV 1,000 ML 999 ML IV CONT ×3 (10:25→13:05)
[2023-06-15 10:26] LABS: Glucose Point of Care > 500 mg/dl (65-105)
[2023-06-15 10:29] LABS: Basophils Absolute Auto 0.1 K/mm3 (0.0-0.1); Basophils Percent Auto 0.4 % (0.2-1.2); Eosinophils Percent Auto 0.1 % (0-4.4); Hematocrit 43.6 % (42.0-52.0); Hemoglobin 14.7 g/dL (14.0-18.0); Immature Granulocyte Absolute 0.11 K/mm3 (0.00-0.031); Immature Granulocyte Percent A 0.7 % (0-0.5); Lymphocytes Absolute Auto 0.73 K/mm3 (0.9-3.2); Lymphocytes Percent Auto 4.4 % (18.3-44.2); Mean Corpuscular HGB Conc 33.7 g/dl (32-36); Mean Corpuscular Hemoglobin 30.9 pg (26-34); Mean Corpuscular Volume 91.6 fl (80-100); Mean Platelet Volume 11.8 fl (7.4-10.4); Monocytes Absolute Auto 0.5 K/mm3 (0.1-0.6); Monocytes Percent Auto 2.8 % (2.6-8.5); Neutrophils Absolute Auto 15.3 K/mm3 (1.3-6.7); Neutrophils Percent Auto 91.6 % (45.5-73.1); Platelet Count Result 243 k/mm3 (150-375); Red Blood Count 4.76 M/mm3 (4.6-6.20); White Blood Count 16.7 K/mm3 (4.5-10.0)
[2023-06-15] MEDS: INSULIN HUMAN REGULAR (*BKC) 100 UNITS/ML 7 UNITS IV PUSH (10:36)
[2023-06-15 10:39] LABS: Lactic Acid Reflex 3.1 mmol/L (0.7-2.0)
[2023-06-15 10:43] LABS: Influenza A QL RT-PCR Negative (Negative); Influenza B QL RT-PCR Negative (Negative); RSV RNA, RT-PCR Negative (Negative); SARS-CoV-2 RNA PCR Negative (Negative)
[2023-06-15 10:43] LABS: Alanine Aminotransferase 23 U/L (6-50); Albumin Level 4.4 g/dL (3.5-5.1); Alkaline Phosphatase 96 U/L (38-126); Anion Gap 24 mmol/L (8-16); Aspartate Amino Transferase 21 U/L (17-59); Bilirubin,Total 1.4 mg/dL (0.2-1.3); Blood Urea Nitrogen 28 mg/dL (9-20); Calcium 9.1 mg/dL (8.4-10.2); Carbon Dioxide 15 mmol/L (22-30); Chloride 93 mmol/L (98-107); Estimated CRCL calculation 65 ml/min; Estimated Glomerular Filt Rate > 60; Glucose 560 mg/dL (65-110); Lipase 21 U/L (23-300); Potassium 4.7 mmol/L (3.4-5.0); Sodium 132 mmol/L (137-145)
[2023-06-15 11:30] LABS: Glucose Point of Care 460 mg/dl (65-105)
[2023-06-15 12:56] LABS: Glucose Point of Care 398 mg/dl (65-105)
[2023-06-15] MEDS: INSULIN HUMAN REGULAR (*BKC) 100 UNITS in SODIUM CHLORIDE 0.9% IV 99 ML 7.4 UNITS IV CONT (13:04)
[2023-06-15 13:27] LABS: Reflex Lactic Acid Yes or No Add Lactic
[2023-06-15 14:00] LABS: Lactic Acid 1.4 mmol/L (0.7-2.0)
[2023-06-15 14:32] LABS: Glucose Point of Care 294 mg/dl (65-105)
[2023-06-15 15:29] LABS: Glucose Point of Care 288 mg/dl (65-105)
[2023-06-15] MEDS: SODIUM CHLORIDE 0.9% IV 1,000 ML 125 ML IV CONT (15:49)
--- NOTE | 2023-06-15 16:14 | ADMGEN ---
This patient, Aj Cox, was admitted to Intensive Care Unit-3. Patient/family oriented to hospital policies and general routines including ID bracelet, bed and alarms, visiting hours, pain management, procedures, bathroom and other care routines, personal items, smoking policy, room service/diet, and visiting hours. Information on how to activate the Rapid Response Team has been discussed. Patient/Family are encouraged to report perceived risks to care and to ask questions if they do not understand what they are told or what they should do.
--- NOTE | 2023-06-15 16:21 | PM.IMHP ---
H&P: HPI History of Present Illness Date/Time: 06/15/23 15:00 Chief Complaint: Vertigo and nausea. Narrative: This is a 53-year-old male with insulin-dependent diabetes and GERD who presented to the emergency department via private vehicle for evaluation of vertigo and nausea. The patient provides the following history. He reports having flu-like symptoms a couple of weeks ago and he has not really felt back to his usual state of health. In fact he has ongoing issues with vertigo and he reports sensations of spinning. It is worse with movement of the head and when turning side to side and is somewhat improved when lying still. Associated symptoms include nausea occasional vomiting. He has a cough which is productive of dark mucus however that is mainly in the morning and that is not a new finding. He was seen in the ED at [place] last week with similar symptoms, was treated with supportive care, was able to be discharged home. He felt marginally better at that time however his symptoms acute worsened within about 24 hours. He was given a prescription for meclizine which is not been of much benefit. He has been getting chills but denies fever. He just does not have much energy. Today while lying on the couch, he started to feel his heart racing and he decided to come in for evaluation. He denies fever, headache, diplopia, facial droop, difficulty speaking and swallowing, focal weakness, and paresthesias. He also denies exertional chest pain, pleuritic pain, and shortness of breath. No hematemesis or diarrhea. In fact he typically suffers from constipation. No urinary symptoms. In the ED: He was afebrile on arrival with stable blood pressures. He is in a sinus tachycardia with rates in the lower 100s. Labs were significant for WBC count 16.7, hemoglobin 14.7, sodium 132, potassium 4.7, chloride 93, carbon dioxide 15, anion gap 24, BUN 28, creatinine 1.10, glucose 560, lactic acid 3.1,, lipase 21, beta hydroxybutyrate 7.60. Brain CT showed no acute intracranial abnormality. Chest x-ray was normal. He is being started on insulin drip and is being admitted to the ICU in this setting. Review of Systems Review of Systems: Twelve systems were reviewed and are negative except for as per HPI. [facility] Past Medical History Medical History Cannabinoid hyperemesis syndrome Gastroesophageal reflux disease Insulin dependent diabetes mellitus Surgical History Surgical History History of colonoscopy Family History Family History Grandparent Diabetes mellitus Father Acute myocardial infarction FH: throat cancer Father Cerebrovascular accident Mother FH: throat cancer Social History Social History Social History: Surrogate medical decision maker: Kemi Cox, daughter. Code status: Full code. Smoking status: Never smoker Alcohol intake: never Substance use: current Substance use type: marijuana Lack of Transportation: No Lack of Food: Never True Current Housing: I Have Housing Concerned About Future Housing: No Difficulty Paying Gas/Electric Bills: No Difficulty Paying for Meds: No Currently Unemployed: No Education: Trade/Vocational Certificate Difficulty w/ Childcare or Family Care: No Additional living arrangements comments: Lives in [place]. Additional occupation/education comments: [employer]. Spiritual care concerns: No Agree to blood products: Yes Meds Home Medications and Allergies Home Medications Medication Instructions Recorded Confirmed Type omeprazole 20 mg capsule,delayed 20 mg PO BID 08/09/19 06/15/23 History release buspirone 15 mg tablet 15 mg PO BID 08/10/19 06/15/23 History trazodone 100 mg tablet 100 mg PO HS 08/10/19 06/15/23 Histor
[2023-06-15] MEDS: DEXTROSE 5%/0.45% SOD CHL 1,000 ML 125 ML IV CONT (17:12)
[2023-06-15 17:32] LABS: Hematocrit 37.8 % (42.0-52.0); Hemoglobin 13.1 g/dL (14.0-18.0); Mean Corpuscular HGB Conc 34.7 g/dl (32-36); Mean Corpuscular Hemoglobin 31.2 pg (26-34); Mean Platelet Volume 11.1 fl (7.4-10.4); Platelet Count Result 198 k/mm3 (150-375); Red Cell Distribution Width 11.9 % (11.5-14.5); White Blood Count 14.6 K/mm3 (4.5-10.0)
[2023-06-15 17:44] LABS: Alanine Aminotransferase 22 U/L (6-50); Albumin Level 3.4 g/dL (3.5-5.1); Alkaline Phosphatase 64 U/L (38-126); Anion Gap 10 mmol/L (8-16); Aspartate Amino Transferase 19 U/L (17-59); Bilirubin,Total 0.9 mg/dL (0.2-1.3); Blood Urea Nitrogen 23 mg/dL (9-20); Calcium 7.9 mg/dL (8.4-10.2); Carbon Dioxide 20 mmol/L (22-30); Chloride 105 mmol/L (98-107); Estimated CRCL calculation 88 ml/min; Estimated Glomerular Filt Rate > 60; Glucose 204 mg/dL (65-110); Magnesium 2.1 mg/dL (1.6-2.3); Potassium 3.8 mmol/L (3.4-5.0); Sodium 135 mmol/L (137-145)
[2023-06-15 17:57] LABS: Glucose Point of Care 224 mg/dl (65-105)
[2023-06-15 18:14] LABS: Glucose Point of Care 197 mg/dl (65-105)
[2023-06-15] MEDS: KCL 20 MEQ/D5/0.45% SOD CHL 1,000 ML 150 ML IV CONT (18:41)
[2023-06-15 19:19] LABS: Appearance Urine Clear (Clear); Bacteria Urine None Seen /hpf; Bilirubin Urine Negative (Negative); Blood Urine Trace (Negative); Color Urine Yellow (Yellow); Glucose Urine UA 3+ mg/dL (Negative); Ketones Urine 4+ mg/dL (Negative); Leukocyte Esterase Ur Negative LEU/UL (NEGATIVE); Need Manual Microscopic Reviewed; Nitrate Urine Negative (Negative); Protein Urine 2+ mg/dL (Negative); RBC Urine 0-2 /hpf (0-2); Specific Grav Ur 1.025 (1.001-1.035); Squamous Epithelial Cell Urine None seen /hpf (Few); Urobilinogen Urine 0.2 mg/dL (<2.0); WBC Urine 0-5 /hpf (0-3); pH Urine 5.5 (5.0-9.0)
[2023-06-15 19:22] LABS: Add Urine Microscopic? YES
[2023-06-15] MEDS: ACETAMINOPHEN 325 MG TABLET 650 MG PO (20:19)
[2023-06-15] MEDS: INSULIN GLARGINE (*BKC) 100 UNITS/ML 24 UNITS SUB-Q (20:22)
[2023-06-15] MEDS: ONDANSETRON INJ 4 MG/2 ML VIAL IV PUSH (20:24)
[2023-06-15 20:36] LABS: Glucose Point of Care 159 mg/dl (65-105)
[2023-06-15] MEDS: PANTOPRAZOLE 40 MG TABLET PO (21:08)
[2023-06-15] MEDS: busPIRone HCL 5 MG TABLET 15 MG PO (21:08)
[2023-06-15] MEDS: traZODone HCL 50 MG TABLET 100 MG PO (21:08)
[2023-06-15 21:49] LABS: Anion Gap 6 mmol/L (8-16); Blood Urea Nitrogen 20 mg/dL (9-20); Calcium 7.8 mg/dL (8.4-10.2); Carbon Dioxide 25 mmol/L (22-30); Chloride 102 mmol/L (98-107); Estimated CRCL calculation 88 ml/min; Estimated Glomerular Filt Rate > 60; Glucose 172 mg/dL (65-110); Sodium 133 mmol/L (137-145)
[2023-06-15 21:51] LABS: Hemoglobin A1C 8.2 % (<5.7)
[2023-06-16] VITALS (12 sets, daily range): BP systolic 113–188; BP diastolic 66–94; PULSE 84–113; RESP 10–20; TEMP 36.6–36.9; O2SAT 95–98; BMI 25.5
--- NOTE | 2023-06-16 | ECHO_ITS ---
Patient Info Name: Aj Cox Age: 53 years : 1970 Gender: Male Ht: 67 in Wt: 163 lbs BSA: 1.88 m2 HR: 85 bpm BP: 157 / 85 mmHg Technical Quality: Fair Exam Date: 06/16/2023 2:17 PM Exam Location: Echo Lab Exam Room: ICU3 Patient Status: Inpatient Admit Date: 06/15/2023 Staff Ordering Physician: Malena Toscano MD Race Car Mechanic: Gwen Hu RDCS Attending Provider: Shemar Jacobo MD Exam Type: CA echo doppler color flow Study Info Indications - DIZZINESS STROKE WORK UP Complete two-dimensional, color flow and Doppler transthoracic echocardiogram is performed. Summary 1. Complete two-dimensional, color flow and Doppler transthoracic echocardiogram is performed. 2. Normal left ventricular size with mild concentric hypertrophy. Hyperdynamic left ventricular systolic function with ejection fraction greater than 70%. No focal wall motion abnormalities. Normal diastolic function. Normal global longitudinal strain. 3. Left atrial chamber dimension is moderately enlarged. 4. There is mild mitral valve regurgitation. 5. Mild pulmonary hypertension, estimated pulmonary arterial systolic pressure is 36 mmHg. 6. Normal sinus rhythm. Left Ventricle Left ventricular chamber dimension is normal. Left ventricular systolic function is hyperdynamic, estimated at >70%. There is mildly increased left ventricular wall thickness. Left ventricular septal wall motion is normal. The left ventricular diastolic function is normal. Global longitudinal strain is normal at -19 %. Right Ventricle Right ventricular chamber dimension is normal. Right ventricular systolic function is normal. Left Atria Left atrial chamber dimension is moderately enlarged. Right Atria Right atrial chamber dimension is normal. Aortic Valve The aortic valve is trileaflet. There is no aortic valve sclerosis. There is no aortic valve stenosis. There is no aortic valve regurgitation. Pulmonic Valve The pulmonic valve is normal. There is no pulmonic valve stenosis. There is no pulmonic regurgitation. Mitral Valve The mitral valve has normal leaflets. There is no mitral valve stenosis. There is mild mitral valve regurgitation. Tricuspid Valve The tricuspid valve leaflets are normal. There is no significant tricuspid valve stenosis. There is trace tricuspid valve regurgitation. Mild pulmonary hypertension, estimated pulmonary arterial systolic pressure is 36 mmHg. Pericardium/Pleural The pericardium appears normal. There is no pericardial effusion. Inferior Vena Cava Normal inferior vena cava with >50% collapse upon inspiration consistent with Empty right atrial pressure, 10 mmHg. Aorta The aortic root size at the sinus of Valsalva is normal. The prox ascending aorta size is normal. Left Ventricular Outflow Tract Name Value Normal LVOT 2D LVOT Diameter 2.0 cm LVOT Doppler LVOT Peak Gradient 4 mmHg LVOT Mean Gradient 2 mmHg LVOT VTI 18 cm LVOT VTI/AV VTI Ratio 0.9 LVOT Stroke Volume 59 ml LVOT CO 14.4 l/min
[2023-06-16 02:37] LABS: Anion Gap 9 mmol/L (8-16); Blood Urea Nitrogen 19 mg/dL (9-20); Calcium 8.2 mg/dL (8.4-10.2); Carbon Dioxide 23 mmol/L (22-30); Chloride 101 mmol/L (98-107); Estimated CRCL calculation 99 ml/min; Estimated Glomerular Filt Rate > 60; Glucose 187 mg/dL (65-110); Potassium 3.8 mmol/L (3.4-5.0); Sodium 133 mmol/L (137-145)
[2023-06-16 04:50] LABS: Anion Gap 8 mmol/L (8-16); Blood Urea Nitrogen 19 mg/dL (9-20); Calcium 7.8 mg/dL (8.4-10.2); Carbon Dioxide 24 mmol/L (22-30); Chloride 101 mmol/L (98-107); Estimated CRCL calculation 99 ml/min; Estimated Glomerular Filt Rate > 60; Glucose 197 mg/dL (65-110); Potassium 3.8 mmol/L (3.4-5.0); Sodium 133 mmol/L (137-145)
[2023-06-16] MEDS: ONDANSETRON INJ 4 MG/2 ML VIAL IV PUSH (05:47)
[2023-06-16] MEDS: hydrALAZINE HCL 20 MG/ML VIAL 10 MG IV PUSH (06:19)
[2023-06-16] MEDS: hydrALAZINE HCL 20 MG/ML VIAL (06:30)
[2023-06-16] MEDS: busPIRone HCL 5 MG TABLET 15 MG PO ×2 (08:06→16:37)
[2023-06-16] MEDS: PANTOPRAZOLE SODIUM IV 40 MG VIAL IV PUSH (08:06)
[2023-06-16] MEDS: ATORVASTATIN 20 MG TABLET PO (08:06)
[2023-06-16] MEDS: SENNOSIDES 8.6 MG TABLET PO ×2 (08:06→16:37)
[2023-06-16] MEDS: PANTOPRAZOLE 40 MG TABLET PO ×2 (08:06→16:37)
[2023-06-16] MEDS: METOCLOPRAMIDE HCL 5 MG TABLET PO (08:07)
[2023-06-16] MEDS: ENOXAPARIN 40 MG/0.4 ML SYRINGE SUB-Q (08:07)
[2023-06-16 08:15] LABS: Glucose Point of Care 275 mg/dl (65-105)
[2023-06-16] MEDS: ACETAMINOPHEN 325 MG TABLET 650 MG PO (08:15)
[2023-06-16] MEDS: INSULIN ASPART (*BKC) 100 UNITS/ML SUB-Q ×3 (09:14→16:38)
--- NOTE | 2023-06-16 09:53 | WPDCNINT ---
Assessment and Plan Assessment and plan (1) Diabetic ketoacidosis: Code(s): E11.10 - Type 2 diabetes mellitus with ketoacidosis without coma Status: Acute Assessment and Plan: Patient's anion gap has closed. Patient has been transition to subcutaneous insulin Continue Lantus 24 units at bedtime. 6 units with meals and sliding scale Diabetic diet (2) Vertigo: Code(s): R42 - Dizziness and giddiness Status: Acute Assessment and Plan: Symptoms of dizziness lightheadedness could be secondary to dehydration hypovolemia from DKA. Patient is clinically feeling better Head CT was negative patient has MRI and Dopplers of carotids ordered. If symptoms persist, will pursue further workup (3) Gastroesophageal reflux disease: Code(s): K21.9 - Gastro-esophageal reflux disease without esophagitis Status: Acute Assessment and Plan: Continue Protonix (4) Constipation: Code(s): K59.00 - Constipation, unspecified Status: Acute Assessment and Plan: Continue patient's home laxative regimen Add scheduled MiraLax and p.r.n. Dulcolax suppository (5) Gastroparesis: Code(s): K31.84 - Gastroparesis Status: Acute Assessment and Plan: Continue Reglan Plan DVT prophylaxis -Lovenox Stress ulcer prophylaxis -PPI Nutrition -diabetic diet Code Status - Full Code Transfer of ICU today Rubber Goods Finisher Consult Note Consult date: 06/16/23 Reason for consult: DKA HPI: Aj Cox is a 53 year old male with past medical history of diabetes GERD gastroparesis chronic constipation presented with chief complaint of vertigo and nausea. Patient states that he started feeling sick since Wednesday with room spinning around dizziness and lightheadedness. He is on insulin and Dexcom at home but his monitor had stopped working on Wednesday. Since that he has been checking his blood sugars and was noticing high blood sugars. He was seen in ER and was prescribed medication for vertigo. He presented yesterday to [facility] and was found to be in DKA. In the ED He was afebrile on arrival with stable blood pressures. Labs were significant for WBC count 16.7, hemoglobin 14.7, sodium 132, potassium 4.7, chloride 93, carbon dioxide 15, anion gap 24, BUN 28, creatinine 1.10, glucose 560, lactic acid 3.1,, lipase 21, beta hydroxybutyrate 7.60. Brain CT showed no acute intracranial abnormality. Chest x-ray was normal. He i was started on insulin drip and was admitted to the ICU in this setting.. Later his anion gap closed and patient was transition to subcutaneous insulin. This morning patient states he is feeling much better and is eating his breakfast. He still feels little bit dizzy on moving his head but denies any other complaints. Patient denies fever, chest pain, shortness of breath, cough, nausea vomiting, abdominal pain,, diarrhea, headache. Review of system was positive for chronic constipation and gastroparesis symptoms all other systems were reviewed and were negative Review of Systems Review of Systems: All systems reviewed & are unremarkable except as noted in HPI and below (HPI) [facility] Past Medical History Medical History Cannabinoid hyperemesis syndrome Gastroesophageal reflux disease Insulin dependent diabetes mellitus Surgical History Surgical History History of colonoscopy Family History Family History Grandparent Diabetes mellitus Father Acute myocardial infarction FH: throat cancer Father Cerebrovascular accident Mother FH: throat cancer Social History Social History Social History: Surrogate medical decision maker: Kemi Cox, daughter. Code status: Full code. Smoking status: Never smoker Alcohol intake: never Substance use: cu
[2023-06-16] MEDS: LORazepam INJ (*CRX) 2 MG/ML VIAL 1 MG IV PUSH (11:25)
[2023-06-16] MEDS: METOCLOPRAMIDE HCL 10 MG TABLET PO ×2 (11:25→16:37)
[2023-06-16] MEDS: INSULIN ASPART (*BKC) 100 UNITS/ML 6 UNITS SUB-Q (12:19)
[2023-06-16 12:23] LABS: Glucose Point of Care 304 mg/dl (65-105)
--- NOTE | 2023-06-16 14:27 | PM.IMPN ---
Progress Note: A&P Assessment and Plan (1) Gastroparesis: Code(s): K31.84 - Gastroparesis Status: Acute (2) Constipation: Code(s): K59.00 - Constipation, unspecified Status: Acute (3) Diabetic ketoacidosis: Code(s): E11.10 - Type 2 diabetes mellitus with ketoacidosis without coma Status: Acute (4) Vertigo: Code(s): R42 - Dizziness and giddiness Status: Acute Plan 53-year-old male with insulin-dependent diabetes and GERD who presented to the emergency department via private vehicle for evaluation of vertigo and nausea CT head was unremarkable. He was found to be tachycardic with anion gap of 24, was admitted to ICU, was started insulin. 1. Diabetes mellitus: On an gap has closed Has been transition from insulin drip to subcutaneous insulin Blood glucose checked t.i.d. a.c. HS Started on Lantus along with pre meal insulin Adjust dose as needed 2. Gastroparesis: Continue with Reglan 3. Constipation: Continue with stool softeners 4. Vertigo/dizziness: CT head, MRI brain, carotid Doppler has been unremarkable await echocardiogram Meclizine p.r.n. 5. Hypertension:: Add lisinopril Will titrate as needed 6. GERD: Continue with Protonix 7. Code status: Full 8. DVT prophylaxis: Lovenox 9. Disposition: Will transfer out of ICU today, anticipate discharge in next 24 hours Time Spent With Patient Time with patient: 15 - 25 minutes Subjective Date/time seen: 06/16/23 14:27 Interval history: Feeling better, anion gap has closed Has been transition to subcQ insulin Review of Systems Review of Systems: All systems reviewed & are unremarkable except as noted in HPI and below (HPI) Exam Narrative: General: Pt is alert awake and in NAD Lungs/Chest: Trachea central Clear BS B/L, No crackles or wheezing. Cardiac: RRR. Normal S1 S2. No murmurs Circulation: Pedal pulses are intact and symmetrical. Abdomen: Normal bowel sounds.. Soft. NT. ND. Extremities: No clubbing, cyanosis or edema. Warm : Payne in place Neurologic: Follows commands. Moves all 4 extremities PERRL Skin: No Rash Objective Data Vital Signs Vital Signs: Vital Signs - 24 hr 06/15/23 14:31 06/15/23 14:46 06/15/23 16:05 Temperature 98.0 F Pulse Rate 134 H 120 H Respiratory Rate 20 17 Blood Pressure 139/89 136/82 Pulse Oximetry 98 100 Oxygen Delivery 06/15/23 15:01 06/15/23 15:30 06/15/23 15:45 Temperature Pulse Rate 114 H 116 H 115 H Respiratory Rate 19 20 16 Blood Pressure 144/85 H 113/62 140/77 Pulse Oximetry 99 100 100 Oxygen Delivery 06/15/23 16:00 06/15/23 18:00 06/15/23 18:00 Temperature 98.5 F Pulse Rate 115 H 103 H 103 H Respiratory Rate 21 H 14 Blood Pressure 134/77 155/91 H Pulse Oximetry 99 96 Oxygen Delivery 06/15/23 20:00 06/15/23 20:00 06/15/23 22:00 Temperature 98 F Pulse Rate 104 H 104 H 96 Respiratory Rate 26 H Blood Pressure 155/91 H Pulse Oximetry 97 Oxygen Delivery 06/15/23 22:00 06/16/23 00:00 06/16/23 00:00 Temperature 98.0 F Pulse Rate 96 87 87 Respiratory Rate 18 15 Blood Pressure 127/79 113/66 Pulse Oximetry 96 97 Oxygen Delivery 06/16/23 02:00 06/16/23 02:00 06/16/23 04:00 Temperature Pulse Rate 94 95 99 Respiratory Rate 17 Blood Pressure 154/78 H Pulse Oximetry 98 Oxygen Delivery 06/16/23 04:00 06/16/23 05:51 06/16/23 06:00 Temperature 98.0 F Pulse Rate 99 107 H 113 H Respiratory Rate 16 16 Blood Pressure 120/74 188/94 H Pulse Oximetry 96 97 Oxygen Delivery 06/16/23 09:05 06/16/23 08:00 06/16/23 08:00 Temperature 98.2 F Pulse Rate 110 H Respiratory Rate 15 Blood Pressure 157/85 H Pulse Oximetry 96 96 Oxygen Delivery Room Air Room Air 06/16/23 08:00 06/16/23 10:00 06/16/23 12:00 Temperature 97.9 F Pulse Rate 106 H 109 H Respiratory Rate 14 Blood Pressure 169/94 H Pulse Oximetry 97 Oxygen Delivery
[2023-06-16] MEDS: lisinopriL 5 MG TABLET PO (14:58)
[2023-06-16 16:34] LABS: Glucose Point of Care 228 mg/dl (65-105)
[2023-06-16] MEDS: INSULIN ASPART (*BKC) 100 UNITS/ML 9 UNITS SUB-Q (16:38)
[2023-06-16] MEDS: INSULIN GLARGINE (*BKC) 100 UNITS/ML 24 UNITS SUB-Q (20:17)
[2023-06-16 20:21] LABS: Glucose Point of Care 193 mg/dl (65-105)
[2023-06-16] MEDS: traZODone HCL 50 MG TABLET 100 MG PO (21:08)
--- NOTE | 2023-06-16 21:09 | PC.NURSE ---
pt arrived to unit from ICU via wheelchair, pt in bed, oriented to unit, and bed alarm on.
[2023-06-16 21:11] LABS: Glucose Point of Care 121 mg/dl (65-105)
[2023-06-17] VITALS: PULSE 120
[2023-06-17 01:33] LABS: Glucose Point of Care 155 mg/dl (65-105)
[2023-06-17 04:00] VITALS: PULSE 90
[2023-06-17] MEDS: ONDANSETRON INJ 4 MG/2 ML VIAL IV PUSH (04:35)
[2023-06-17] MEDS: MECLIZINE HCL 25 MG TABLET PO (04:35)
[2023-06-17 06:00] VITALS: BP 136/91; PULSE 84; RESP 18; TEMP 36.6; O2SAT 99
[2023-06-17] MEDS: METOCLOPRAMIDE HCL 10 MG TABLET PO ×2 (06:04→11:41)
[2023-06-17] MEDS: ACETAMINOPHEN 325 MG TABLET 650 MG PO (06:08)
[2023-06-17 07:16] LABS: Hematocrit 36.8 % (42.0-52.0); Hemoglobin 12.9 g/dL (14.0-18.0); Mean Corpuscular HGB Conc 35.1 g/dl (32-36); Mean Corpuscular Hemoglobin 31.4 pg (26-34); Mean Corpuscular Volume 89.5 fl (80-100); Mean Platelet Volume 11.5 fl (7.4-10.4); Platelet Count Result 152 k/mm3 (150-375); Red Blood Count 4.11 M/mm3 (4.6-6.20); Red Cell Distribution Width 11.5 % (11.5-14.5); White Blood Count 5.6 K/mm3 (4.5-10.0)
[2023-06-17 07:27] LABS: Alanine Aminotransferase 16 U/L (6-50); Alkaline Phosphatase 63 U/L (38-126); Anion Gap 4 mmol/L (8-16); Aspartate Amino Transferase 20 U/L (17-59); Bilirubin,Total 1.3 mg/dL (0.2-1.3); Blood Urea Nitrogen 16 mg/dL (9-20); Calcium 7.9 mg/dL (8.4-10.2); Carbon Dioxide 31 mmol/L (22-30); Chloride 98 mmol/L (98-107); Estimated CRCL calculation 114 ml/min; Estimated Glomerular Filt Rate > 60; Glucose 135 mg/dL (65-110); Magnesium 2.1 mg/dL (1.6-2.3); Potassium 3.1 mmol/L (3.4-5.0); Sodium 133 mmol/L (137-145)
[2023-06-17 08:00] VITALS: PULSE 87
[2023-06-17 08:41] LABS: Glucose Point of Care 128 mg/dl (65-105)
[2023-06-17] MEDS: busPIRone HCL 5 MG TABLET 15 MG PO (09:09)
[2023-06-17] MEDS: ENOXAPARIN 40 MG/0.4 ML SYRINGE SUB-Q (09:09)
[2023-06-17] MEDS: polyethylene glycoL 3350 17 GM POWD.PACK PO (09:09)
[2023-06-17] MEDS: SENNOSIDES 8.6 MG TABLET PO (09:09)
[2023-06-17] MEDS: lisinopriL 5 MG TABLET PO (09:10)
[2023-06-17] MEDS: PANTOPRAZOLE 40 MG TABLET PO (09:10)
[2023-06-17] MEDS: ATORVASTATIN 20 MG TABLET PO (09:10)
[2023-06-17] MEDS: POTASSIUM CHLORIDE 20 MEQ ER TABLET 40 MEQ PO ×2 (09:17→12:37)
[2023-06-17] MEDS: INSULIN ASPART (*BKC) 100 UNITS/ML SUB-Q (11:44)
[2023-06-17] MEDS: INSULIN ASPART (*BKC) 100 UNITS/ML 9 UNITS SUB-Q (11:52)
--- NOTE | 2023-06-17 12:17 | PM.DS ---
DS: Admitting Diagnosis Discharge Date 06/17/23 Admitting Diagnosis Vertigo Nausea DS: Discharge Diagnosis Discharge Diagnosis (1) Gastroparesis: Code(s): K31.84 - Gastroparesis Status: Acute (2) Constipation: Code(s): K59.00 - Constipation, unspecified Status: Acute (3) Diabetic ketoacidosis: Code(s): E11.10 - Type 2 diabetes mellitus with ketoacidosis without coma Status: Acute (4) Vertigo: Code(s): R42 - Dizziness and giddiness Status: Acute DS: Summary Hospital Course Reason for hospitalization: Nausea Vertigo Hospital Course: 53-year-old male with insulin-dependent diabetes and GERD who presented to the emergency department via private vehicle for evaluation of vertigo and nausea CT head was unremarkable.? He was found to be tachycardic with anion gap of 24, was admitted to ICU, was started insulin drip. Anion gap closed quickly was transitioned to subcutaneous insulin. Tolerated p.o., treated for constipation He was worked up for vertigo, CT head, MRI brain, carotid Doppler, echocardiogram were unremarkable. Discharged home in stable condition Status at Discharge Functional status at discharge: independent ambulation Overall status at discharge: patient is back to baseline Time Spent with Patient Time attestation: Total time spent providing and/or coordinating discharge services: Time spent: Greater than 30 minutes Exam Narrative: General: Pt is alert awake and in NAD Lungs/Chest: Trachea central Clear BS B/L, No crackles or wheezing. Cardiac: RRR. Normal S1 S2. No murmurs Circulation: Pedal pulses are intact and symmetrical. Abdomen: Normal bowel sounds.. Soft. NT. ND. Extremities: No clubbing, cyanosis or edema. Warm : Payne in place Neurologic: Follows commands. Moves all 4 extremities PERRL Skin: No Rash DS: Data Data Completed and Pending Labs on day of discharge: Labs from last 24 hours 06/17/23 06/17/23 06/17/23 08:17 06:40 01:29 WBC 5.6 RBC 4.11 L Hgb 12.9 L Hct 36.8 L MCV 89.5 MCH 31.4 MCHC 35.1 RDW 11.5 Plt Count 152 MPV 11.5 H Sodium 133 L Potassium 3.1 L Chloride 98 Carbon Dioxide 31 H Anion Gap 4 L BUN 16 Creatinine 0.60 L Estim Creat Clear Calc 114 Estimated GFR > 60 Glucose 135 H POC Capillary Glucose 128 H 155 H Calcium 7.9 L Magnesium 2.1 Total Bilirubin 1.3 AST 20 ALT 16 Alkaline Phosphatase 63 Total Protein 5.0 L Albumin 3.0 L 06/16/23 06/16/23 06/16/23 21:02 20:16 16:31 WBC RBC Hgb Hct MCV MCH MCHC RDW Plt Count MPV Sodium Potassium Chloride Carbon Dioxide Anion Gap BUN Creatinine Estim Creat Clear Calc Estimated GFR Glucose POC Capillary Glucose 121 H 193 H 228 H Calcium Magnesium Total Bilirubin AST ALT Alkaline Phosphatase Total Protein Albumin 06/16/23 12:15 WBC RBC Hgb Hct MCV MCH MCHC RDW Plt Count MPV Sodium Potassium Chloride Carbon Dioxide Anion Gap BUN Creatinine Estim Creat Clear Calc Estimated GFR Glucose POC Capillary Glucose 304 H Calcium Magnesium Total Bilirubin AST ALT Alkaline Phosphatase Total Protein Albumin Preliminary micro results at discharge 06/15/23 18:37 Sputum Culture - Preliminary Sputum Discharge Plan Discharge Attending physician on discharge: Malena Toscano Consulting providers: Liz Francisco Discharging Clinician: Malena Toscano Anticipated Discharge Date/Time: 06/17/23 12:14 Patient Disposition: Home, Self-Care Activity: as tolerated Diet: heart healthy and diabetic Patient Instructions: Antibiotic Form Stand Alone Forms: General Discharge Information Follow-up/Referrals: Ignacio,MD Maurizio [Primary Care Provider] - 2 Weeks Discharge Medications: New lisinop
[2023-06-17 12:28] LABS: Glucose Point of Care 267 mg/dl (65-105)
--- NOTE | 2023-06-17 12:57 | PC.NURSE ---
IV's out, D/C instructions gone over with patient. Denies questions. daughter picked up and patient walked out to private vehicle.
== END 2023-06-17 12:55 | disposition home or self-care (01) ==
LOC: ANHED 09:56 → ANHICU 18:20 → ANH3MEDSUR 06-17 12:16 → ANHICU 06-18 08:06
PROVIDERS: Internal Medicine; Physician Assistant; Admitting Provider Internal Medicine; Emergency Provider Emergency Medicine; PCP Family Medicine; Visit Provider Internal Medicine
DX: E11.43 Type 2 diabetes mellitus with diabetic autonomic (poly)neuropathy (principal); K31.84 Gastroparesis; E11.10 Type 2 diabetes mellitus with ketoacidosis without coma; E86.0 Dehydration; R42 Dizziness and giddiness; K59.09 Other constipation; Z23 Encounter for immunization; I34.0 Nonrheumatic mitral (valve) insufficiency; I27.20 Pulmonary hypertension, unspecified; R00.0 Tachycardia, unspecified; K21.9 Gastro-esophageal reflux disease without esophagitis; Z20.822 Contact with and (suspected) exposure to COVID-19; D72.829 Elevated white blood cell count, unspecified; F12.90 Cannabis use, unspecified, uncomplicated; Z79.4 Long term (current) use of insulin; Z79.899 Other long term (current) drug therapy; Z83.3 Family history of diabetes mellitus; Z82.49 Family history of ischemic heart disease and other diseases of the circulatory system
CPT/HCPCS: 36415; 70450; 70551; 71045; 80048; 80053; 81001; 82010; 82948; 83036; 83605; 83690; 83735; 85025; 85027; 87070; 87205; 87637; 90471; 90686; 93306; 93880; 96361; 96365; 96366; 96372; 96374; 96375; 99285; A9270; C9113; G0008; G0378; G0379; J0360; J1650; J1815; J2060; J2405; J3360; J3480; J7030

== ENCOUNTER 2023-10-13 17:12 | Emergency (ER) | payer OTHER, SELFPAY ==
--- NOTE | ~2023-10-13 | CT_ITS ---
EXAMINATION: CT abdomen pelvis w con DATE: 10/13/2023 21:20 INDICATION: Abdominal pain TECHNIQUE: Computed tomography (CT) of the abdomen and pelvis was performed with 100 mL Omnipaque-350 intravenous contrast. Automated exposure control and iterative reconstruction technique were employe d. The dose-length product was 323.29 mGy-cm. COMPARISON: None FINDINGS: Lung bases are clear. Heart size is normal. No pericardial or pleural effusion. Focal hepatic steatos is at the ligamentum teres. Gallbladder, spleen, bilateral adrenal glands and kidneys are normal. Carrasco creas appears atrophic. Normal appendix. No bowel obstruction. Bladder is normal. No free intraperito lorenzo gas or fluid. No pathologically enlarged abdominal or pelvic lymphadenopathy. Mild lumbar spondy losis. IMPRESSION: 1. No acute intra-abdominal/pelvic process. Reviewed, dictated and finalized at location A.
[2023-10-13 17:27] VITALS: BP 162/85; PULSE 92; RESP 20; TEMP 36.2; O2SAT 100
--- NOTE | 2023-10-13 18:09 | ED.GENADULT ---
HPI - General Adult General Chief complaint: Nausea/Vomiting/Diarrhea <Iris Gill, GROUP EXERCISE INSTRUCTOR - Last Filed: 10/13/23 18:13> Stated complaint: nausea vomiting <Iris Douglas November, GROUP EXERCISE INSTRUCTOR - Last Filed: 10/13/23 18:13> Time Seen by Provider: 10/13/23 18:09 <Iris Douglas November, GROUP EXERCISE INSTRUCTOR - Last Filed: 10/13/23 18:13> Focused HPI: Aj Cox is a 53 y/o male PMHx of DM Type 1 who presents with reports of having nausea /vomiting that started this AM - his blood sugar has been in the 300s he believes the nausea vomiting is related to getting started on antibiotics yesterday for an eye infection he was started on Augmentin yesterday but with the N/V his blood sugars are getting out of control. GENERAL: in no acute distress. HEAD: Normocephalic, atraumatic. CHEST: Clear to auscultation. ?No respiratory distress. HEART: Regular rate and rhythm.? NEURO: ?Alert and oriented x3. Patient screened in triage and initial orders placed.? ?Additional care and disposition to be based upon?diagnostic testing and treatment. <Iris Douglas November, GROUP EXERCISE INSTRUCTOR - Last Filed: 10/13/23 18:13> Related Data Home medications: Home Medications Medication Instructions Recorded Confirmed omeprazole 20 mg capsule,delayed 20 mg PO BID 08/09/19 06/15/23 release buspirone 15 mg tablet 15 mg PO BID 08/10/19 06/15/23 trazodone 100 mg tablet 100 mg PO HS 08/10/19 06/15/23 insulin lispro 100 unit/mL See Rx Instructions .Route .COMPLEX 10/07/21 06/15/23 subcutaneous pen (Humalog KwikPen (U-100) Insulin) atorvastatin 20 mg tablet 20 mg PO ONCE 06/15/23 06/15/23 insulin glargine 100 unit/mL (3 24 unit subcut QHS 06/15/23 06/15/23 mL) subcutaneous pen (Lantus Solostar U-100 Insulin) linaclotide 145 mcg capsule 145 mcg PO ONCE PRN Abdominal 06/15/23 06/15/23 (Linzess) Discomfort meclizine 25 mg tablet 25 mg PO DAILY PRN Dizziness Or 06/15/23 06/15/23 Vertigo metoclopramide HCl 10 mg tablet 10 mg PO Q6H PRN Nausea And 06/15/23 06/15/23 Vomiting metoclopramide HCl 5 mg tablet 5 mg PO DAILY 06/15/23 06/15/23 ondansetron 4 mg disintegrating 4 mg PO Q8H nausea 06/15/23 06/15/23 tablet sennosides 8.6 mg tablet (Azalea-nunu) 8.6 mg PO BID 06/15/23 06/15/23 <Iris Douglas November, - Last Filed: 10/13/23 18:13> Allergies/adverse reactions: Allergies Allergy/AdvReac Type Severity Reaction Status Date / Time No Known Allergies Allergy Verified 12/16/21 14:05 <Iris Douglas November, - Last Filed: 10/13/23 18:13> PMFSH Past Medical History Medical History: Medical History Cannabinoid hyperemesis syndrome Gastroesophageal reflux disease Insulin dependent diabetes mellitus <Iris Douglas November, - Last Filed: 10/13/23 18:13> Surgical History Surgical History: Surgical History History of colonoscopy <Iris Douglas November, - Last Filed: 10/13/23 18:13> Family History Family History: Family History Grandparent Diabetes mellitus Father Acute myocardial infarction FH: throat cancer Father Cerebrovascular accident Mother FH: throat cancer <Iris Douglas November, Last Filed: 10/13/23 18:13> Social History Social History: Social History Social History: Surrogate medical decision maker: Kemi Cox, daughter. Code status: Full code. Smoking status: Never smoker Alcohol intake: never Substance use: current Substance use type: marijuana Do You Feel Safe in your Home?: Yes Lack of Transportation: No Lack of Food: Never True Current Housing: I Have Housing Concerned About Future Housing: No Difficulty Paying Gas/Electric Bills: No Difficulty Paying for Meds: No Currently Unemployed: No Education: Trade/Vocational Certificate Difficulty w/ Childcare or Family Care: No Additional living arrangements co
[2023-10-13] MEDS: FAMOTIDINE 20 MG/2 ML VIAL IV PUSH (18:38)
[2023-10-13] MEDS: LACTATED RINGERS 1,000 ML 999 ML IV CONT (18:38)
[2023-10-13] MEDS: ONDANSETRON INJ 4 MG/2 ML VIAL IV PUSH (18:38)
[2023-10-13 18:48] LABS: Basophils Percent Auto 0.3 % (0.2-1.2); Hematocrit 41.4 % (42.0-52.0); Hemoglobin 14.5 g/dL (14.0-18.0); Immature Granulocyte Absolute 0.03 K/mm3 (0.00-0.031); Immature Granulocyte Percent A 0.3 % (0-0.5); Lymphocytes Absolute Auto 0.51 K/mm3 (0.9-3.2); Lymphocytes Percent Auto 5.5 % (18.3-44.2); Mean Corpuscular Hemoglobin 31.7 pg (26-34); Mean Corpuscular Volume 90.4 fl (80-100); Mean Platelet Volume 12.4 fl (7.4-10.4); Monocytes Absolute Auto 0.1 K/mm3 (0.1-0.6); Monocytes Percent Auto 1.3 % (2.6-8.5); Neutrophils Absolute Auto 8.6 K/mm3 (1.3-6.7); Neutrophils Percent Auto 92.6 % (45.5-73.1); Platelet Count Result 165 k/mm3 (150-375); Red Blood Count 4.58 M/mm3 (4.6-6.20); Red Cell Distribution Width 11.9 % (11.5-14.5); White Blood Count 9.3 K/mm3 (4.5-10.0)
[2023-10-13 18:51] LABS: Glucose Point of Care 283 mg/dl (65-105)
[2023-10-13 19:03] LABS: Alanine Aminotransferase 26 U/L (6-50); Albumin Level 4.6 g/dL (3.5-5.1); Alkaline Phosphatase 83 U/L (38-126); Anion Gap 9 mmol/L (4-12); Aspartate Amino Transferase 27 U/L (17-59); Bilirubin,Total 1.1 mg/dL (0.2-1.3); Blood Urea Nitrogen 16 mg/dL (9-20); Calcium 9.5 mg/dL (8.4-10.2); Carbon Dioxide 25 mmol/L (22-30); Chloride 100 mmol/L (98-107); Estimated CRCL calculation 114 ml/min; Estimated Glomerular Filt Rate > 60; Glucose 293 mg/dL (65-110); Lipase 17 U/L (23-300); Potassium 3.7 mmol/L (3.4-5.0); Sodium 134 mmol/L (137-145)
[2023-10-13 19:04] LABS: Magnesium 1.9 mg/dL (1.6-2.3); Phosphorus 2.6 mg/dL (2.5-4.5)
[2023-10-13 19:05] LABS: Beta-Hydroxybutyrate/Acetoacetate 1.26 mmol/L (0.02-0.27)
[2023-10-13 21:00] VITALS: BP 155/91; PULSE 109; RESP 16; TEMP 36.7; O2SAT 97
[2023-10-13] MEDS: METOCLOPRAMIDE HCL INJ 10 MG/2 ML VIAL IV PUSH (21:01)
[2023-10-13] MEDS: SODIUM CHLORIDE 0.9% IV 1,000 ML 999 ML IV CONT (21:01)
[2023-10-13] MEDS: diphenhydrAMINE HCl INJ 50 MG/ML VIAL 25 MG IV PUSH (21:03)
[2023-10-13 22:56] VITALS: BP 171/103; PULSE 118; RESP 16; O2SAT 99
[2023-10-13 23:14] VITALS: BP 124/71; PULSE 100; RESP 15; O2SAT 100
== END 2023-10-13 23:30 | disposition home or self-care (01) ==
PROVIDERS: Nurse Practitioner Family; Emergency Provider Physician Assistant; PCP Family Medicine
DX: R11.2 Nausea with vomiting, unspecified (principal); E10.9 Type 1 diabetes mellitus without complications; Z79.4 Long term (current) use of insulin; K21.9 Gastro-esophageal reflux disease without esophagitis
CPT/HCPCS: 36415; 74177; 80053; 82010; 82948; 83690; 83735; 84100; 85025; 96361; 96374; 96375; 99284; J1200; J2405; J2765; J7030; J7120; Q9967

== ENCOUNTER 2024-01-20 09:07 | Observation (INO) | payer OTHER, SELFPAY ==
[2024-01-20] VITALS (21 sets, daily range): BP systolic 107–126; BP diastolic 55–80; PULSE 74–85; RESP 13–19; TEMP 36.5–36.9; O2SAT 96–100; BMI 25.4
--- NOTE | ~2024-01-20 | US_ITS ---
EXAMINATION: US venous doppler [facility] DATE: 01/20/2024 17:33 INDICATION: Left lower limb swelling. TECHNIQUE: Grayscale ultrasound images without and with compression and Doppler ultrasound images of the left lower extremity veins were obtained. COMPARISON: None. FINDINGS: The visualized portions of left common femoral vein, profunda (deep) femoral vein, femoral vein, popl iteal vein, peroneal veins, posterior tibial veins, and greater saphenous vein outflow are patent. IMPRESSION: 1. No deep venous thrombosis. Reviewed, dictated and finalized at location E.
--- NOTE | ~2024-01-20 | XR_ITS ---
Left Knee Technique: AP, lateral, and oblique views were obtained. Clinical History: Pain Findings: No fracture or dislocation is seen. Osseous alignment is anatomic. Joint spaces are preserv ed without degenerative or erosive change. Soft tissues are unremarkable. No joint effusion is seen. Impression: Unremarkable left knee radiographs. Reviewed, dictated and finalized at location . Impression: Unremarkable left knee radiographs.
--- NOTE | 2024-01-20 09:27 | ED.SKABFB ---
HPI - Skin/Abscess/Foreign Bdy General Chief complaint: Skin/Abscess/Foreign Body Stated complaint: infected ingrown hairs on L knee Time Seen by Provider: 01/20/24 09:14 History of Present Illness HPI narrative: 53-year-old male history of insulin-dependent diabetes, HTN, and dyslipidemia presents to the emergency room for evaluation of left knee pain. 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 It is also reports multiple open wounds to his left knee. Patient was seen at an outside urgent care 2 days ago and began taking Bactrim and keflex for suspected cellulitis of the left knee. Patient states the swelling, redness and pain have worsened since initiating the antibiotics. Related Data Home Medications Medication Instructions Recorded Confirmed omeprazole 20 mg capsule,delayed 20 mg PO BID 08/09/19 06/15/23 release buspirone 15 mg tablet 15 mg PO BID 08/10/19 06/15/23 trazodone 100 mg tablet 100 mg PO HS 08/10/19 06/15/23 insulin lispro 100 unit/mL See Rx Instructions .Route .COMPLEX 10/07/21 06/15/23 subcutaneous pen (Humalog KwikPen (U-100) Insulin) atorvastatin 20 mg tablet 20 mg PO ONCE 06/15/23 06/15/23 insulin glargine 100 unit/mL (3 24 unit subcut QHS 06/15/23 06/15/23 mL) subcutaneous pen (Lantus Solostar U-100 Insulin) linaclotide 145 mcg capsule 145 mcg PO ONCE PRN Abdominal 06/15/23 06/15/23 (Linzess) Discomfort meclizine 25 mg tablet 25 mg PO DAILY PRN Dizziness Or 06/15/23 06/15/23 Vertigo metoclopramide HCl 10 mg tablet 10 mg PO Q6H PRN Nausea And 06/15/23 06/15/23 Vomiting metoclopramide HCl 5 mg tablet 5 mg PO DAILY 06/15/23 06/15/23 ondansetron 4 mg disintegrating 4 mg PO Q8H nausea 06/15/23 06/15/23 tablet sennosides 8.6 mg tablet (Azalea-nunu) 8.6 mg PO BID 06/15/23 06/15/23 Allergies Allergy/AdvReac Type Severity Reaction Status Date / Time No Known Allergies Allergy Verified 01/20/24 09:31 Review of Systems Review of Systems: ROS unremarkable except for noted in HPI PMFSH Past Medical History Medical History Cannabinoid hyperemesis syndrome Gastroesophageal reflux disease Insulin dependent diabetes mellitus Surgical History Surgical History History of colonoscopy Family History Family History Grandparent Diabetes mellitus Father Acute myocardial infarction FH: throat cancer Father Cerebrovascular accident Mother FH: throat cancer Social History Social History Social History: Surrogate medical decision maker: Kemi Cox, daughter. Code status: Full code. Smoking status: Never smoker Alcohol intake: never Substance use: current Substance use type: marijuana Do You Feel Safe in your Home?: Yes Lack of Transportation: No Lack of Food: Never True Current Housing: I Have Housing Concerned About Future Housing: No Difficulty Paying Gas/Electric Bills: No Difficulty Paying for Meds: No Currently Unemployed: No Education: Trade/Vocational Certificate Difficulty w/ Childcare or Family Care: No Additional living arrangements comments: Lives in [place]. Additional occupation/education comments: [employer]. Spiritual care concerns: No Agree to blood products: Yes Exam Narrative: GENERAL: Well-appearing, well-nourished, no physical limitations, and in no acute distress. HEAD: Normocephalic, atraumatic. EYES: Conjunctivae normal, PERRLA and EOMI. CHEST: Clear to auscultation. No respiratory distress. No wheezes rales or rhonchi. HEART: Regular rate and rhythm. No murmur heard. Normal peripheral pulses. EXTREMITIES: Normal range of motion. No edema. No clubbing or cyanosis SKIN: Left knee: Extensive STS with erythema exte
[2024-01-20 10:01] LABS: Basophils Absolute Auto 0.1 K/mm3 (0.0-0.1); Basophils Percent Auto 0.7 % (0.2-1.2); Eosinophils Absolute Auto 0.1 K/mm3 (0-0.3); Eosinophils Percent Auto 1.3 % (0-4.4); Hematocrit 32.9 % (42.0-52.0); Hemoglobin 11.4 g/dL (14.0-18.0); Immature Granulocyte Absolute 0.03 K/mm3 (0.00-0.031); Immature Granulocyte Percent A 0.3 % (0-0.5); Lymphocytes Absolute Auto 0.81 K/mm3 (0.9-3.2); Lymphocytes Percent Auto 9.3 % (18.3-44.2); Mean Corpuscular HGB Conc 34.7 g/dl (32-36); Mean Corpuscular Hemoglobin 32.3 pg (26-34); Mean Corpuscular Volume 93.2 fl (80-100); Mean Platelet Volume 11.4 fl (7.4-10.4); Monocytes Absolute Auto 0.6 K/mm3 (0.1-0.6); Monocytes Percent Auto 7.3 % (2.6-8.5); Neutrophils Absolute Auto 7.1 K/mm3 (1.3-6.7); Neutrophils Percent Auto 81.1 % (45.5-73.1); Platelet Count Result 155 k/mm3 (150-375); Red Blood Count 3.53 M/mm3 (4.6-6.20); Red Cell Distribution Width 11.7 % (11.5-14.5); White Blood Count 8.8 K/mm3 (4.5-10.0)
[2024-01-20 10:10] LABS: Lactic Acid Reflex 0.9 mmol/L (0.7-2.0)
[2024-01-20 10:11] LABS: Alanine Aminotransferase 12 U/L (6-50); Albumin Level 3.6 g/dL (3.5-5.1); Alkaline Phosphatase 58 U/L (38-126); Anion Gap 8 mmol/L (4-12); Aspartate Amino Transferase 17 U/L (17-59); Bilirubin,Total 0.6 mg/dL (0.2-1.3); Blood Urea Nitrogen 21 mg/dL (9-20); Calcium 8.5 mg/dL (8.4-10.2); Carbon Dioxide 26 mmol/L (22-30); Chloride 101 mmol/L (98-107); Estimated CRCL calculation 88 ml/min; Estimated Glomerular Filt Rate > 60; Glucose 268 mg/dL (65-110); Potassium 4.2 mmol/L (3.4-5.0); Sodium 135 mmol/L (137-145)
--- NOTE | 2024-01-20 10:21 | PC.NURSE ---
Pt taking Bactrim 800 mg-160 mg BID and Cephalexin 500 mg TID
--- NOTE | 2024-01-20 10:58 | PC.NURSE ---
Report given to Dipti VELASQUEZ, all questions answered
[2024-01-20] MEDS: PIPERACILLN/TAZ 3.375GM/NS50ML 3.375 GM/50 ML BAG IVPB (11:12)
[2024-01-20 11:18] LABS: CRP 5.5 mg/dL (<1.0)
[2024-01-20] MEDS: VANCOMYCIN 1,500 MG/NS 500 ML 1,500 MG/500 ML BAG 250 MG IVPB (11:42)
[2024-01-20 12:36] LABS: Glucose Point of Care 211 mg/dl (65-105)
--- NOTE | 2024-01-20 12:42 | PC.NURSE ---
This patient, Aj Cox, was admitted to [facility] Surg Room 330-01. Patient/family oriented to hospital policies and general routines including ID bracelet, bed and alarms, visiting hours, pain management, procedures, bathroom and other care routines, personal items, smoking policy, room service/diet, and visiting hours. Information on how to activate the Rapid Response Team has been discussed. Patient/Family are encouraged to report perceived risks to care and to ask questions if they do not understand what they are told or what they should do.
--- NOTE | 2024-01-20 13:06 | PM.IMHP ---
H&P: HPI History of Present Illness Date/Time: 01/20/24 13:06 Chief Complaint: Left knee pain Narrative: Patient 53-year-old male with past medical history of insulin dependent diabetes, hypertension, hyperlipidemia presented the ED with evaluation of left knee pain. Patient stated that is the knee pain started about 3-4 days ago. He stated that he was putting and echo on with knee pads and he was doing a for 4 days. He noticed the pain along with swelling the redness and went to urgent care where he was prescribed Bactrim and Keflex. Patient stated that he was taking the antibiotics however nothing seemed to be getting better. He stated initially that it started off like an ingrown hair with a mckay with hair growing out of bed. He denies any drainage or open sores. He states currently his pain is controlled well. Not Moving 6-7/10 [address] he walks it is an 8/10. Currently his glucose is also elevated he states that he normally takes 6 units for breakfast 6 units with lunch and 14 units with dinner with 24 units of Lantus daily. He denies any current chest pain, shortness a breath, nausea, vomiting, diarrhea, constipation, fevers, sweats, chills, lightheadedness, dizziness, abdominal pain. In the ED x-ray of the knee was performed showed no acute findings. Physical exam was evaluated there is an open sore on the knee cap area not draining the left leg is swollen and very red need ankle. WBCs 8.8, hemoglobin hematocrit 11.4/32.9, BUN 21, glucose 268 on admission. Orthopedics has been consulted. Patient has been initiated on vancomycin and ceftriaxone has been added. Patient is being admitted to the hospitalist service under observation and will require less than 2 midnights for workup, treatment, recovery. Review of Systems Review of Systems: All systems reviewed & are unremarkable except as noted in HPI and below PMFSH Past Medical History Medical History Cannabinoid hyperemesis syndrome Gastroesophageal reflux disease Insulin dependent diabetes mellitus Surgical History Surgical History History of colonoscopy Family History Family History Grandparent Diabetes mellitus Father Acute myocardial infarction FH: throat cancer Father Cerebrovascular accident Mother FH: throat cancer Social History Social History Social History: Surrogate medical decision maker: Kemi Cox, daughter. Code status: Full code. Smoking status: Never smoker Alcohol intake: never Substance use: current Substance use type: marijuana Last use: 01/20/24 Do You Feel Safe in your Home?: Yes Lack of Transportation: No Lack of Food: Never True Current Housing: I Have Housing Concerned About Future Housing: No Difficulty Paying Gas/Electric Bills: No Difficulty Paying for Meds: No Currently Unemployed: No Education: Trade/Vocational Certificate Difficulty w/ Childcare or Family Care: No Additional living arrangements comments: Lives in [place]. Additional occupation/education comments: [employer]. Spiritual care concerns: No Agree to blood products: Yes Meds Home Medications and Allergies Home Medications Medication Instructions Recorded Confirmed Type omeprazole 20 mg capsule,delayed 20 mg PO BID 08/09/19 01/20/24 History release buspirone 15 mg tablet 30 mg PO BID 08/10/19 01/20/24 History trazodone 100 mg tablet 100 mg PO HS PRN Insomnia 08/10/19 01/20/24 History insulin lispro 100 unit/mL See Rx Instructions .Route .COMPLEX 10/07/21 01/20/24 History subcutaneous pen (Humalog KwikPen (U-100) Insulin) ondansetron 8 mg disintegrating 8 mg PO Q8H PRN nausea and 10/07/21 01/20/24 Rx tablet vomiting #20 tabs atorvastatin 20 mg tablet 20 mg PO HS
--- NOTE | 2024-01-20 16:18 | PM.CNOR ---
Assessment and Plan Assessment and plan (1) Septic prepatellar bursitis of left knee: Code(s): M71.162 - Other infective bursitis, left knee Status: Acute Assessment and Plan: History, exam and radiographs reviewed with the patient. Radiographs of the left knee reveal swelling anterior to the tibial tubercle inferior to the patella. Radiographs otherwise unremarkable. On exam, patient has significant erythema overlying the tibial tubercle as well as palpable fluctuance. Small irritated hair follicle noted in this area as well as the lateral aspect of the knee. Significant redness and 1+ pitting edema into the left lower anterior diaz and into foot. Palpable pedal pulses. Tenderness to the touch. Discussed condition, nature, etiology and course of natural history. Conservative and operative treatment options reviewed as well as risks and benefits of each. Recommended aspiration of the left knee pre patella bursitis with stat Gram stain and culture. Patient has been on antibiotic therapy orally as ordered by the urgent care. Results may be skewed due to this. Consent obtained. Daughter at bedside agrees with procedure as well. See below to joint aspiration notes for further details of procedure. Aspiration of left anterior knee bursa yields 10mL of sanguinous, cloudy fluid. Fluid sent for analysis. patient may require surgical incision and debridement. IV antibiotics in the interim per the medicine team. Ice. Elevation. Pain control. NPO at midnight for possible surgical intervention. We will re-evaluate with Dr. Juarez tomorrow after 24 hours of antibiotics and continue to follow cultures. Plan Reviewed history, exam, radiographs and current labs with attending MD and covering surgeon, Dr. Juarez, who agrees with current plan as indicated above. No further recommendations from Dr. Juarez at this time. History of Present Illness HPI Consult date: 01/20/24 Chief complaint: septic bursitis Narrative: 53-year-old male presents to [facility] with complaints of left anterior knee pain and swelling. He was recently seen in urgent care and was started on antibiotics. He reports that the provider at urgent care did express purulence from the left anterior knee abscess at the site of what is suspected to be an infected hair follicle but did not perform an aspiration of the prepatellar bursitis. He has not heard or seen results from the cultures obtained. We do not have access to the medical records at this time. 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 He reports increased redness and swelling since initiating the oral antibiotics. Per medical records, the patient was on Bactrim and Keflex. Patient denies fever. He does report chills and night sweats. He denies nausea vomiting or diarrhea. Patient admitted for IV antibiotics for left lower extremity swelling and cellulitis. Orthopedic consult requested for prepatellar bursitis with concern for septic bursitis. Review of Systems Review of Systems: All systems reviewed & are unremarkable except as noted in HPI and below PMFSH Past Medical History Medical History Cannabinoid hyperemesis syndrome Gastroesophageal reflux disease Insulin dependent diabetes mellitus Surgical History Surgical History History of colonoscopy Family History Family History Grandparent Diabetes mellitus Father Acute myocardial infarction FH: throat cancer Father Cerebrovascular accident Mother FH: throat cancer Social History Social History Social History: Surrogate medical decision maker: Kemi Cox, daughter. Code status: Full code. Smoking status: Never smoker Alcohol intake: never Substance u
[2024-01-20 16:56] LABS: Glucose Point of Care 335 mg/dl (65-105)
[2024-01-20] MEDS: INSULIN ASPART (*BKC) 100 UNITS/ML SUB-Q ×2 (16:57→21:00)
[2024-01-20] MEDS: cefTRIAXone 2 GM/NS 100 ML 2 GM/100 ML BAG IVPB (17:02)
[2024-01-20] MEDS: busPIRone HCL 10 MG TABLET 30 MG PO (17:02)
[2024-01-20] MEDS: SENNOSIDES 8.6 MG TABLET PO (17:02)
[2024-01-20 17:45] LABS: Hemoglobin A1C 7.8 % (<5.7)
[2024-01-20 18:20] LABS: Appearance Synovial Fluid Bloody (Clear); Color Synovial Fluid Red (Colorless); Source Synovial Fluid Synovial fluid
[2024-01-20 18:21] LABS: Lymphocytes Synovial Fluid 2 %; Macrophages Synovial Fluid 2 %; Neutrophils Synovial Fluid 96 % (0-25)
[2024-01-20 18:26] LABS: Crystals Synovial Fluid None Seen (None Seen)
[2024-01-20 20:12] LABS: Glucose Point of Care 222 mg/dl (65-105)
[2024-01-20] MEDS: ATORVASTATIN 20 MG TABLET PO (21:00)
[2024-01-20] MEDS: INSULIN GLARGINE (*BKC) 100 UNITS/ML 24 UNITS SUB-Q (21:01)
[2024-01-21] VITALS (8 sets, daily range): BP systolic 133–181; BP diastolic 72–81; PULSE 79–135; RESP 14–18; TEMP 36.3–36.6; O2SAT 95–100
[2024-01-21] MEDS: VANCOMYCIN 1,500 MG/NS 500 ML 1,500 MG/500 ML BAG 250 MG IVPB ×2 (00:40→12:16)
[2024-01-21] MEDS: traZODone HCL 50 MG TABLET 100 MG PO ×2 (03:39→23:50)
[2024-01-21] MEDS: cefTRIAXone 2 GM/NS 100 ML 2 GM/100 ML BAG IVPB ×2 (03:39→17:45)
[2024-01-21] MEDS: LINACLOTIDE 145 MCG CAPSULE PO (05:32)
[2024-01-21 05:50] LABS: Estimated CRCL calculation 99 ml/min; Estimated Glomerular Filt Rate > 60
[2024-01-21 05:57] LABS: CRP 4.3 mg/dL (<1.0)
[2024-01-21 07:42] LABS: Glucose Point of Care 165 mg/dl (65-105)
[2024-01-21] MEDS: ONDANSETRON INJ 4 MG/2 ML VIAL IV PUSH ×3 (07:52→20:39)
[2024-01-21 08:58] LABS: Basophils Absolute Auto 0.1 K/mm3 (0.0-0.1); Basophils Percent Auto 0.6 % (0.2-1.2); Eosinophils Absolute Auto 0.1 K/mm3 (0-0.3); Eosinophils Percent Auto 1.4 % (0-4.4); Hematocrit 34.3 % (42.0-52.0); Hemoglobin 11.6 g/dL (14.0-18.0); Immature Granulocyte Absolute 0.03 K/mm3 (0.00-0.031); Immature Granulocyte Percent A 0.4 % (0-0.5); Lymphocytes Absolute Auto 1.03 K/mm3 (0.9-3.2); Mean Corpuscular HGB Conc 33.8 g/dl (32-36); Mean Corpuscular Hemoglobin 32.1 pg (26-34); Mean Platelet Volume 12.3 fl (7.4-10.4); Monocytes Absolute Auto 0.6 K/mm3 (0.1-0.6); Monocytes Percent Auto 7.8 % (2.6-8.5); Neutrophils Absolute Auto 6.1 K/mm3 (1.3-6.7); Neutrophils Percent Auto 76.8 % (45.5-73.1); Platelet Count Result 172 k/mm3 (150-375); Red Blood Count 3.61 M/mm3 (4.6-6.20); Red Cell Distribution Width 11.7 % (11.5-14.5); White Blood Count 7.9 K/mm3 (4.5-10.0)
[2024-01-21 09:20] LABS: Alanine Aminotransferase 12 U/L (6-50); Albumin Level 3.3 g/dL (3.5-5.1); Alkaline Phosphatase 59 U/L (38-126); Anion Gap 4 mmol/L (4-12); Aspartate Amino Transferase 19 U/L (17-59); Bilirubin,Total 0.4 mg/dL (0.2-1.3); Blood Urea Nitrogen 13 mg/dL (9-20); Calcium 8.5 mg/dL (8.4-10.2); Carbon Dioxide 29 mmol/L (22-30); Chloride 104 mmol/L (98-107); Estimated CRCL calculation 99 ml/min; Estimated Glomerular Filt Rate > 60; Glucose 145 mg/dL (65-110); Potassium 4.1 mmol/L (3.4-5.0); Sodium 137 mmol/L (137-145)
[2024-01-21] MEDS: METOCLOPRAMIDE HCL INJ 10 MG/2 ML VIAL IV PUSH (10:20)
[2024-01-21 11:58] LABS: Glucose Point of Care 306 mg/dl (65-105)
[2024-01-21] MEDS: INSULIN ASPART (*BKC) 100 UNITS/ML SUB-Q ×3 (12:18→21:43)
--- NOTE | 2024-01-21 15:40 | PM.IMPN ---
Progress Note: A&P Assessment and Plan (1) Left knee pain: Qualifiers: Chronicity: acute Qualified Code(s): M25.562 - Pain in left knee Code(s): M25.562 - Pain in left knee Status: Acute Assessment and Plan: Presented to the ED with complaints of left knee pain Ortho consulted Xray with no acute findings Pain medications ordered Could be related to cellulitis or from septic joint Continue vancomycin, add ceftriaxone Await further recommendations from ortho Knee aspiration done yesterday Synovial fluid did have 96% neutrophils (2) Insulin dependent diabetes mellitus: Status: Acute Assessment and Plan: Glucose 268 on admission Current glucose 145 Continue Lantus 24 units HS ISS high dosing A1c 7.8 Trend glucose Adjust therapy as indicated (3) Hypertension: Qualifiers: Hypertension type: primary hypertension Qualified Code(s): I10 - Essential (primary) hypertension Code(s): I10 - Essential (primary) hypertension Status: Acute Assessment and Plan: BP is 181/72 Continue Lisinopril Trend BP Adjust therapy as indicated (4) Hyperlipidemia: Qualifiers: Hyperlipidemia type: mixed hyperlipidemia Qualified Code(s): E78.2 - Mixed hyperlipidemia Code(s): E78.5 - Hyperlipidemia, unspecified Status: Acute Assessment and Plan: Continue atorvastatin (5) Nausea and vomiting: Qualifiers: Vomiting Intractability: non-intractable Vomiting type: unspecified Qualified Code(s): R11.2 - Nausea with vomiting, unspecified Code(s): R11.2 - Nausea with vomiting, unspecified Status: Resolved Assessment and Plan: Persistent nausea and vomiting today. Zofran ordered Reglan given with no relief added compazine IV fluids continued at 100 ml/hr Plan placed 18 sohan IV in the right arm Time Spent With Patient Time: 68 minutes Time with patient: Greater than 35 minutes Subjective Date/time seen: 01/21/24 1130 Interval history: 01/20/24 13:06 Patient 53-year-old male with past medical history of insulin dependent diabetes, hypertension, hyperlipidemia presented the ED with evaluation of left knee pain. Patient stated that is the knee pain started about 3-4 days ago. He stated that he was putting and echo on with knee pads and he was doing a for 4 days. He noticed the pain along with swelling the redness and went to urgent care where he was prescribed Bactrim and Keflex. Patient stated that he was taking the antibiotics however nothing seemed to be getting better. He stated initially that it started off like an ingrown hair with a mckay with hair growing out of bed. He denies any drainage or open sores. He states currently his pain is controlled well. Not Moving 6-7/10 [address] he walks it is an 8/10. Currently his glucose is also elevated he states that he normally takes 6 units for breakfast 6 units with lunch and 14 units with dinner with 24 units of Lantus daily. He denies any current chest pain, shortness a breath, nausea, vomiting, diarrhea, constipation, fevers, sweats, chills, lightheadedness, dizziness, abdominal pain. In the ED x-ray of the knee was performed showed no acute findings. Physical exam was evaluated there is an open sore on the knee cap area not draining the left leg is swollen and very red need ankle. WBCs 8.8, hemoglobin hematocrit 11.4/32.9, BUN 21, glucose 268 on admission. Orthopedics has been consulted. Patient has been initiated on vancomycin and ceftriaxone has been added. Patient is being admitted to the hospitalist service under observation and will require less than 2 midnights for workup, treatment, recovery. 01/21/2024 1130 Patient is fairly nauseous today. Did give him some Zofran along with Reglan. IV access has been regained. He denies any chest pain, shortne
[2024-01-21 17:05] LABS: Glucose Point of Care 251 mg/dl (65-105)
[2024-01-21] MEDS: busPIRone HCL 10 MG TABLET 30 MG PO (17:41)
[2024-01-21] MEDS: SENNOSIDES 8.6 MG TABLET PO (17:41)
[2024-01-21] MEDS: LACTATED RINGERS 1,000 ML 100 ML IV CONT (18:26)
[2024-01-21 21:00] LABS: Glucose Point of Care 223 mg/dl (65-105)
[2024-01-21] MEDS: INSULIN GLARGINE (*BKC) 100 UNITS/ML 24 UNITS SUB-Q (21:42)
[2024-01-21] MEDS: ATORVASTATIN 20 MG TABLET PO (23:50)
[2024-01-22] VITALS (8 sets, daily range): BP systolic 158–176; BP diastolic 78–90; PULSE 86–111; RESP 16–20; TEMP 36.5–36.9; O2SAT 97–100
[2024-01-22 00:06] LABS: Vancomycin Trough 7.8 ug/mL (10.0-20.0)
[2024-01-22] MEDS: VANCOMYCIN 2,000 MG/NS 500 ML 2,000 MG/500 ML BAG 250 MG IVPB ×2 (01:00→12:03)
[2024-01-22] MEDS: cefTRIAXone 2 GM/NS 100 ML 2 GM/100 ML BAG IVPB ×2 (05:23→17:09)
[2024-01-22] MEDS: LINACLOTIDE 145 MCG CAPSULE PO (05:24)
[2024-01-22 07:14] LABS: Basophils Percent Auto 0.2 % (0.2-1.2); Hematocrit 34.6 % (42.0-52.0); Hemoglobin 12.1 g/dL (14.0-18.0); Immature Granulocyte Absolute 0.04 K/mm3 (0.00-0.031); Immature Granulocyte Percent A 0.4 % (0-0.5); Lymphocytes Percent Auto 6.8 % (18.3-44.2); Mean Corpuscular Hemoglobin 32.3 pg (26-34); Mean Corpuscular Volume 92.3 fl (80-100); Mean Platelet Volume 11.7 fl (7.4-10.4); Monocytes Absolute Auto 0.5 K/mm3 (0.1-0.6); Monocytes Percent Auto 4.8 % (2.6-8.5); Neutrophils Percent Auto 87.8 % (45.5-73.1); Platelet Count Result 198 k/mm3 (150-375); Red Blood Count 3.75 M/mm3 (4.6-6.20); Red Cell Distribution Width 11.5 % (11.5-14.5); White Blood Count 10.3 K/mm3 (4.5-10.0)
[2024-01-22 07:34] LABS: Alanine Aminotransferase 12 U/L (6-50); Albumin Level 3.3 g/dL (3.5-5.1); Alkaline Phosphatase 57 U/L (38-126); Anion Gap 9 mmol/L (4-12); Aspartate Amino Transferase 18 U/L (17-59); Bilirubin,Total 0.6 mg/dL (0.2-1.3); Blood Urea Nitrogen 19 mg/dL (9-20); Calcium 8.3 mg/dL (8.4-10.2); Carbon Dioxide 27 mmol/L (22-30); Chloride 99 mmol/L (98-107); Estimated CRCL calculation 114 ml/min; Estimated Glomerular Filt Rate > 60; Glucose 275 mg/dL (65-110); Magnesium 1.9 mg/dL (1.6-2.3); Potassium 3.7 mmol/L (3.4-5.0); Sodium 135 mmol/L (137-145)
[2024-01-22 07:58] LABS: Glucose Point of Care 248 mg/dl (65-105)
[2024-01-22] MEDS: INSULIN ASPART (*BKC) 100 UNITS/ML SUB-Q ×3 (08:33→17:47)
[2024-01-22] MEDS: SENNOSIDES 8.6 MG TABLET PO ×2 (08:34→17:07)
[2024-01-22] MEDS: PANTOPRAZOLE 40 MG TABLET PO (08:34)
[2024-01-22] MEDS: lisinopriL 10 MG TABLET PO (08:34)
[2024-01-22] MEDS: busPIRone HCL 10 MG TABLET 30 MG PO ×2 (08:34→17:07)
--- NOTE | 2024-01-22 10:51 | PM.IMPN ---
Progress Note: A&P Assessment and Plan (1) Left knee pain: Qualifiers: Chronicity: acute Qualified Code(s): M25.562 - Pain in left knee Code(s): M25.562 - Pain in left knee Status: Acute Assessment and Plan: Presented to the ED with complaints of left knee pain Ortho consulted Xray with no acute findings Pain medications ordered Could be related to cellulitis or from septic joint Continue vancomycin, continue ceftriaxone IV Await further recommendations from ortho Knee aspiration completed Synovial fluid did have 96% neutrophils (2) Insulin dependent diabetes mellitus: Status: Acute Assessment and Plan: Continue Lantus 24 units HS ISS high dosing A1c 7.8 Trend glucose Adjust therapy as indicated (3) Hypertension: Qualifiers: Hypertension type: primary hypertension Qualified Code(s): I10 - Essential (primary) hypertension Code(s): I10 - Essential (primary) hypertension Status: Acute Assessment and Plan: Continue Lisinopril Trend BP Adjust therapy as indicated (4) Hyperlipidemia: Qualifiers: Hyperlipidemia type: mixed hyperlipidemia Qualified Code(s): E78.2 - Mixed hyperlipidemia Code(s): E78.5 - Hyperlipidemia, unspecified Status: Acute Assessment and Plan: Continue atorvastatin (5) Nausea and vomiting: Qualifiers: Vomiting Intractability: non-intractable Vomiting type: unspecified Qualified Code(s): R11.2 - Nausea with vomiting, unspecified Code(s): R11.2 - Nausea with vomiting, unspecified Status: Resolved Assessment and Plan: Resolved denies any complaints this morning DC IV fluids Time Spent With Patient Time with patient: 25 - 35 minutes Subjective Date/time seen: 01/22/24 10:51 Interval history: Patient 53-year-old male with past medical history of insulin dependent diabetes, hypertension, hyperlipidemia presented the ED with evaluation of left knee pain. Patient stated that is the knee pain started about 3-4 days ago 01/22/2024 1052 Pt resting in bed, no distress, reports he feels so much better, he is requesting discharge to home today. He denies any chest pain, shortness a breath, diarrhea constipation fevers sweats or chills. Review of Systems Review of Systems: All systems reviewed & are unremarkable except as noted in HPI and below Exam Narrative: General: well-nourished, well-appearing , lying in bed, comfortable, NARD Neuro: awake, alert and oriented x4, speech clear, no focal neuro deficits noted HEENMT: normocephalic, atraumatic, EOMI, sclerae anicteric, moist oral mucosa Respiratory: Clear to auscultation bilaterally without crackles, rhonchi or wheezes, nonlabored breathing Cardio: regular rate, regular rhythm with S1-S2 Abdomen: nondistended, normoactive bowel sounds, soft, nontender to palpation Extremities: left knee,with erythema, mild tenderness to palpation, DP pulses 2+ bilaterally Skin: no rashes or lesions, warm and dry Psych: appropriate mood and affect, judgment and insight intact Objective Data Vital Signs Vital Signs: Vital Signs - 24 hr 01/21/24 14:00 01/21/24 12:02 01/21/24 16:02 Temperature 97.4 F L Pulse Rate 97 101 H 92 Respiratory Rate 18 Blood Pressure 181/72 H Pulse Oximetry 100 Oxygen Delivery 01/21/24 21:28 01/21/24 20:00 01/21/24 20:00 Temperature 97.9 F Pulse Rate 96 111 H Respiratory Rate 16 Blood Pressure 158/78 H Pulse Oximetry 100 Oxygen Delivery Room Air 01/22/24 00:00 01/22/24 04:00 01/22/24 06:00 Temperature 98.5 F Pulse Rate 111 H 105 H 93 Respiratory Rate 20 Blood Pressure 176/90 H Pulse Oximetry 98 Oxygen Delivery Intake/Output Intake/Output: Intake & Output 01/19/24 01/20/24 01/21/24 01/22/24 23:59 23:59 23:59 23:59 Intake Total 0051
[2024-01-22 11:53] LABS: Glucose Point of Care 262 mg/dl (65-105)
[2024-01-22] MEDS: LACTATED RINGERS 1,000 ML 100 ML IV CONT (12:03)
--- NOTE | 2024-01-22 16:51 | PM.PNORT ---
Progress Note: A&P Assessment and Plan (1) Septic prepatellar bursitis of left knee: Code(s): M71.162 - Other infective bursitis, left knee Status: Acute Assessment and Plan: LEFT PRE PATELLA BURSAE ABSCESS, IMPROVING SOMEWHAT FAS PAIN IS CONCERNED. CULTURES POSITIVE FOR S aureus. CELLULITIS IS DECREASED BUT HE CONTINUES TO HAVE DRAINAGE. THE PATIENT WOULD LIKE TO GO HOME ON ORAL ABX AND RETURN ON WEDNESDAY. I HAVE SUGGESTED WE WAIT FOR THE SENSITIVITIES TO MAKE SURE HE DOES NOT HAVE MRSA. HE WILL MOST LIKELY REQUIRE I AND D OF THE PREPATELLAR BURSAE WHICH WE CAN SCHEDULE FOR WEDNESDAY SINCE HE REMAINS STABLE AND AFEBRILE AND THERE APPEARS TO BE NO PROGRESSION OF HIS CELLULITIS. Subjective Subjective Date/Time Seen: 01/22/24 16:51 Interval history: LEFT PRE PATELLA BURSA INFECTION. HE CONTINUES WITH IV ABX. HIS KNEE FEELS MUCH BETTER. HE IS WALKING WITH NO PAIN. HE DOES HAVE SOME CONTINUED PURULENT DRAINAGE FROM A SMALL WOUND. CELLULITIS IS IMPROVED. Exam Const: General: cooperative and average body habitus Nutritional Appearance: average body habitus Orientation/consciousness: patient oriented x3 Limitations: no limitations HENMT: Head: normal to inspection Ears: hearing grossly normal bilaterally Face/Nose/Sinus: Normal external nose present and normal facial exam Face and sinus: normal facial exam Mouth: Yes moist mucous membranes Teeth and gingiva: dentition normal Extrem: Left lower extremity: knee Details: abnormal to inspection, tenderness Location: of the patella, swelling (NO JOINT EFFUSION ) Location: of the patella and of the pre-patellar area, normal ROM, abrasion, ecchymosis, warmth and other (PURULENT DRAINAGE FROM PRE PATELLA BURSAE) and lower leg Details: erythema Location: of the proximal lower leg Location: medially, laterally and anteriorly and pitting edema Details: 1+ Objective Data Vital Signs Vital Signs: Vital Signs - 24 hr 01/21/24 21:28 01/21/24 20:00 01/21/24 20:00 Temperature 36.6 C Pulse Rate 96 111 H Respiratory Rate 16 Blood Pressure 158/78 H Pulse Oximetry 100 Oxygen Delivery Room Air Fraction of Inspired Oxygen 01/22/24 00:00 01/22/24 04:00 01/22/24 06:00 Temperature 36.9 C Pulse Rate 111 H 105 H 93 Respiratory Rate 20 Blood Pressure 176/90 H Pulse Oximetry 98 Oxygen Delivery Fraction of Inspired Oxygen 01/22/24 12:00 01/22/24 14:00 Temperature 36.5 C Pulse Rate 86 Respiratory Rate 16 Blood Pressure 158/78 H Pulse Oximetry 97 100 Oxygen Delivery Room Air Fraction of Inspired Oxygen 21 Intake/Output Intake/Output: Intake & Output 01/19/24 01/20/24 01/21/24 01/22/24 23:59 23:59 23:59 23:59 Intake Total 1850 1692.8 2888.4 Output Total 1200 1000 Balance 1850 492.8 1888.4 Meds/Results Medications: Active Medications Generic Name Dose Route Start Last Admin Trade Name Freq PRN Reason Stop Dose Admin Hydrocodone Bitart/Acetaminophen 1 tab 01/20/24 13:47 Hydrocodone/Acetaminophen (*Crx) 5-325 Mg Tablet PO Q4H PRN Moderate Pain (4-6) Atorvastatin Calcium 20 mg 01/20/24 21:00 01/21/24 23:50 Atorvastatin 20 Mg Tablet PO 20 mg HS KALPANA Administration Buspirone HCl 30 mg 01/20/24 17:00 01/22/24 08:34 Buspirone Hcl 10 Mg Tablet PO 30 mg BID KALPANA Administration Dextrose 12.5 gm 01/20/24 14:48 Dextrose 50% 25 Gm/50 Ml Syringe IV PUSH PRN PRN Hypoglycemia Protocol Enoxaparin Sodium 40 mg 01/21/24 09:00 01/21/24 09:55 Enoxaparin 40 Mg/0.4 Ml Syringe SUB-Q Not Given DAILY KALPANA Glucagon 1 mg 01/20/24 14:48 Glucagon For Inj 1 Mg Vial IM PRN PRN Hypoglycemia Protocol Glucose 15 gm 01/20/24 14:48 Glucose Oral Gel 15 Gm Of Glucse In 37.5 Gm Tube PO PRN PRN Hypoglycemia Protocol Dextrose 1,000 mls @ 100 mls/hr 01/20/24 14:48 Dextrose 5% 1,000 Ml IVPB PRN PRN Hypoglycemia P
[2024-01-22 17:05] LABS: Glucose Point of Care 208 mg/dl (65-105)
--- NOTE | 2024-01-22 17:36 | PM.DS ---
DS: Admitting Diagnosis Discharge Date 01/22/2024 Admitting Diagnosis 01/22/2024 DS: Discharge Diagnosis Discharge Diagnosis (1) Septic prepatellar bursitis of left knee: Code(s): M71.162 - Other infective bursitis, left knee Status: Acute (2) Insulin dependent diabetes mellitus: Status: Acute (3) Gastroesophageal reflux disease: Code(s): K21.9 - Gastro-esophageal reflux disease without esophagitis Status: Acute DS: Summary Hospital Course Hospital Course: Admitted 01/19 to acute care for pain and swelling of left anterior knee. Diagnosis prepatellar bursitis. Was seen and Bactrim ds. Culture sensitive to Bactrim DS he was treated with vancomycin and ceftriaxone while in hospital. The redness and swelling of his leg dramatically improved. He remained afebrile. White count is within normal limits at admission on day of discharge was mildly elevated at 10.3. Creatinine was 0.6. H&H 12.134.6 with platelet count 198,000. Sodium 135 other electrolytes within normal limits. Blood sugar on the morning of discharge was 275 and to 0 8 on the evening of discharge. Liver function tests within normal limits. Vancomycin trough on 01/20 was 7 8. Left knee x-ray and lower extremity venous Doppler were negative. Patient was feeling good and wanted to go see Dr. Villa ordered term whether he needed irrigation. He had enough antibiotics from urgent care last to the weekend so aware of his discharge to go home and recommended that he stay but was willing to follow up as an outpatient the patient decided to leave. Patient stated he had animals at home to take care of and he could not afford to stand hospital all weekend waiting for procedure. Time Spent with Patient Time attestation: Total time spent providing and/or coordinating discharge services: Exam Narrative: Alert oriented. No acute distress. Extremities: left knee,with erythema, mild tenderness to palpation, DS: Data Data Completed and Pending Labs on day of discharge: Labs from last 24 hours 01/22/24 01/22/24 01/22/24 17:00 11:45 07:55 WBC RBC Hgb Hct MCV MCH MCHC RDW Plt Count MPV Immature Gran % (Auto) Neut % (Auto) Lymph % (Auto) [place] % (Auto) Eos % (Auto) Baso % (Auto) Lymph # (Auto) [place] # (Auto) Eos # (Auto) Baso # (Auto) Abs Immat Gran (auto) Absolute Neuts (auto) Absolute Nucleated RBC Nucleated RBC % Sodium Potassium Chloride Carbon Dioxide Anion Gap BUN Creatinine Estim Creat Clear Calc Estimated GFR Glucose POC Capillary Glucose 208 H 262 H 248 H Calcium Magnesium Total Bilirubin AST ALT Alkaline Phosphatase Total Protein Albumin Vancomycin Trough 01/22/24 01/21/24 01/21/24 06:51 22:43 20:26 WBC 10.3 H RBC 3.75 L Hgb 12.1 L Hct 34.6 L MCV 92.3 MCH 32.3 MCHC 35.0 RDW 11.5 Plt Count 198 MPV 11.7 H Immature Gran % (Auto) 0.4 Neut % (Auto) 87.8 H Lymph % (Auto) 6.8 L [place] % (Auto) 4.8 Eos % (Auto) 0.0 Baso % (Auto) 0.2 Lymph # (Auto) 0.70 L [place] # (Auto) 0.5 Eos # (Auto) 0.0 Baso # (Auto) 0.0 Abs Immat Gran (auto) 0.04 H Absolute Neuts (auto) 9.0 H Absolute Nucleated RBC 0.000 Nucleated RBC % 0.0 Sodium 135 L Potassium 3.7 Chloride 99 Carbon Dioxide 27 Anion Gap 9 BUN 19 Creatinine 0.60 L Estim Creat Clear Calc 114 Estimated GFR > 60 Glucose 275 H POC Capillary Glucose 223 H Calcium 8.3 L Magnesium 1.9 Total Bilirubin 0.6 AST 18 ALT 12 Alkaline Phosphatase 57 Total Protein 6.0 L Albumin 3.3 L Vancomycin Trough 7.8 L Preliminary micro results at discharge 01/20/24 16:15 Anaerobic Culture - Preliminary Synovial Fluid Left Knee Aerobic Culture - Preliminary Staphylococcus aureus Discharge Plan
== END 2024-01-22 18:20 | disposition home or self-care (01) ==
LOC: ANHED 11:13 → ANH3MEDSUR 01-21 15:31
PROVIDERS: Nurse Practitioner; Nurse Practitioner Family; Admitting Provider Hospitalist; Emergency Provider Nurse Practitioner Family; PCP Family Medicine; Visit Provider Internal Medicine
DX: M71.162 Other infective bursitis, left knee (principal); B95.61 Methicillin susceptible Staphylococcus aureus infection as the cause of diseases classified elsewhere; M79.89 Other specified soft tissue disorders; R11.2 Nausea with vomiting, unspecified; I10 Essential (primary) hypertension; E11.9 Type 2 diabetes mellitus without complications; E78.2 Mixed hyperlipidemia; K21.9 Gastro-esophageal reflux disease without esophagitis; Z79.4 Long term (current) use of insulin; F12.90 Cannabis use, unspecified, uncomplicated
CPT/HCPCS: 20610; 36415; 73562; 80053; 80202; 82565; 82948; 83036; 83605; 83735; 85025; 86140; 87070; 87075; 87081; 87181; 87205; 89051; 89060; 93971; 96365; 96366; 96367; 96375; 96376; 99285; A9270; G0378; G0379; J0696; J1815; J2405; J2543; J2765; J3370; J7120

== ENCOUNTER 2024-01-24 19:17 | Inpatient (IN) | payer OTHER, SELFPAY ==
--- NOTE | ~2024-01-24 | XR_ITS ---
EXAMINATION: XR chest PICC line DATE: 01/27/2024 10:23 INDICATION: PICC line placement TECHNIQUE: frontal view of the chest was obtained. COMPARISON: Chest radiograph dated 06/15/2023 FINDINGS: Left upper extremity peripherally inserted central venous catheter (PICC) tip at the mid superior ve na cava at the level of the chris. Lungs are clear with no focal airspace opacities, pulmonary edema , pleural effusion or pneumothorax. The cardiomediastinal silhouette is normal. Visualized bones and soft tissues are unremarkable. IMPRESSION: 1. Left upper extremity PICC line tip at the midsuperior vena cava. 2. No acute cardiopulmonary disease. Reviewed, dictated and finalized at location A.
[2024-01-24 15:06] VITALS: BMI 25.9
--- NOTE | 2024-01-24 15:13 | PC.NURSE ---
Report to the Outpatient Waiting Room, entrance under the green pavilion located off [facility], at time _1300_ on date _01/25/24_. Planned Procedure Time: _1500___. Time changes happen often and if your time is changed the preop area will call you the afternoon before. - You and your visitor will be asked to self-screen and do not enter if you have any COVID symptoms. - A mask is optional within the hospital at this time. Patients may have clear liquids (water, carbonated beverages, clear teas, apple juice) until 3 hours prior to surgery with a maximum of 20 ounces. - No food from midnight until time of surgery - Infants may have breast milk until 4 hours before surgery, infant formula 6 hours prior to surgery. - Children will be allowed to drink immediately following surgery. If applicable, please bring a bottle or sippy cup to assist with drinking. Juice, water, soda, and popsicles are readily available. For infants on formula, please bring formula the day of surgery. Pacifiers are allowed. Take the following medications with a SIP of water the morning of surgery: BUSPIRONE, TAKE HALF OF AM INSULIN DOSE DO NOT STOP ANY OF YOUR OTHER PRESCRIPTION MEDICATIONS PRIOR TO SURGERY ?EXCEPT THE FOLLOWING Medications to discontinue per physician NONE Date to take last dose Please no make-up, nail emirati, hairspray, perfume, deodorant, or body powder the day of surgery. No jewelry (including any body piercings) or valuables the day of surgery, leave them at home. Please take a shower or bath the night before, or the morning of, surgery with an antibacterial soap. Wear comfortable, loose fitting clothing. Children are encouraged to wear pajamas. - Jewelry must be removed prior to entering the operating room. Rings and piercings that are not removed may be cut off. - The hospital will not accept responsibility for valuables. - Please leave all valuables, including medications, at home the day of surgery. If you are going home after surgery, a licensed light truck driver must drive you home. - NO public transportation without another adult if you receive anesthesia. - We recommend that an adult stay with you for 24 hours following discharge. - We also recommend that you do not drive, make important decision, drink alcoholic beverages, or take any drugs that were not prescribed by your health care provider for at least 24 hours after your discharge time. For Pediatric surgeries, we recommend two adults accompany the child home. Follow any additional instructions given to you from your surgeon. If you or anyone in your household have experienced Covid symptoms in the past week, please notify your surgeon or the nurse liaison at the phone number below for possible testing. Telephone instructions given to _PATIENT___and asked if any additional questions and then verbalized understanding. Patient advised to call surgeon office or pre surgery nurse liaison [phone] if any additional questions.
--- NOTE | 2024-01-24 19:39 | ADMGEN ---
This patient, Aj Cox, was admitted to Medical Room 254-01. Patient/family oriented to hospital policies and general routines including ID bracelet, bed and alarms, visiting hours, pain management, procedures, bathroom and other care routines, personal items, smoking policy, room service/diet, and visiting hours. Information on how to activate the Rapid Response Team has been discussed. Patient/Family are encouraged to report perceived risks to care and to ask questions if they do not understand what they are told or what they should do.
[2024-01-24 20:00] VITALS: BP 130/78; PULSE 103; RESP 18; TEMP 37.1; O2SAT 98
[2024-01-24 20:02] LABS: Glucose Point of Care 52 mg/dl (65-105)
[2024-01-24 20:25] LABS: Glucose Point of Care 111 mg/dl (65-105)
[2024-01-24 22:00] VITALS: BP 126/83; PULSE 92; RESP 18; TEMP 37.1; O2SAT 98
--- NOTE | 2024-01-24 22:57 | PC.NURSE ---
The entry writer spoke with Dr Jaramillo at 22:55 and notified her about medical consult requested by Dr Juarez.
--- NOTE | 2024-01-24 23:27 | WPDCN ---
Assessment and Plan Assessment and plan (1) Septic prepatellar bursitis of left knee: Code(s): M71.162 - Other infective bursitis, left knee Status: Acute Assessment and Plan: Wound culture obtained during last admission grew out MRSA. He has been started on vancomycin, pharmacy to dose and monitor. NPO after midnight for I and D in the OR tomorrow per Dr. Juarez. (2) Hypoglycemia: Code(s): E16.2 - Hypoglycemia, unspecified Status: Acute Assessment and Plan: Patient was hypoglycemic with a glucose of 52 on arrival. Glucose has since improved after he ate. Hold basal insulin tonight as he will be NPO for surgery. (3) Insulin dependent diabetes mellitus: Status: Acute Assessment and Plan: Hold basal insulin tonight as he is NPO for surgery tomorrow. Initiate sliding scale insulin, Accu-Cheks, and hypoglycemic protocol. (4) Hypertension: Qualifiers: Hypertension type: primary hypertension Qualified Code(s): I10 - Essential (primary) hypertension Code(s): I10 - Essential (primary) hypertension Status: Acute Assessment and Plan: Blood pressures were reviewed and they are stable. Continue lisinopril 5 mg and monitor closely. (5) Hyperlipidemia: Qualifiers: Hyperlipidemia type: mixed hyperlipidemia Qualified Code(s): E78.2 - Mixed hyperlipidemia Code(s): E78.5 - Hyperlipidemia, unspecified Status: Acute Assessment and Plan: Continue atorvastatin check LFTs. (6) Gastroesophageal reflux disease: Code(s): K21.9 - Gastro-esophageal reflux disease without esophagitis Status: Acute Assessment and Plan: Continue pantoprazole 40 mg b.i.d.. Plan Thank you for allowing us to participate in this patient's care. Please do not hesitate to contact us with any questions. HPI Data of Consult Date/Time: 01/24/24 23:45 Requesting Physician: Joaquin Juarez MD Consult Narrative Reason for consult: Left knee prepatellar bursitis. Narrative: This is a 53-year-old male with insulin-dependent diabetes mellitus, hypertension, hyperlipidemia, and gastroesophageal reflux disease whom the hospitalist service has been consulted for help managing his medical condition. The patient is known to the hospitalist service from an admit last week in which she was treated for septic prepatellar bursitis of the left knee. Wound culture obtained at that time grew out MRSA. The patient did not want to stay over the weekend and was discharged home on Bactrim. Today he had a follow-up with Dr. Juarez who recommended admission tonight for IV antibiotics and plans for incision and drainage in the OR tomorrow. On arrival to the floor he was hypoglycemic with a glucose of 52. He was given something to eat and drink and his glucose has since normalized. At the time my evaluation he has some discomfort in the left knee but nothing significant. He continues to have a small amount of purulent drainage. He denies fever, chills, sweats, nausea, and vomiting. Review of Systems Review of Systems: 12 systems were reviewed and are negative except for as per HPI. [facility] Past Medical History Medical History (Updated 01/24/24 @ 23:56 by Avelina Queen PA-C) Cannabinoid hyperemesis syndrome Gastroesophageal reflux disease Gastroparesis Hyperlipidemia Hypertension Insulin dependent diabetes mellitus Surgical History Surgical History History of colonoscopy Family History Family History Grandparent Diabetes mellitus Father Acute myocardial infarction FH: throat cancer Father Cerebrovascular accident Mother FH: throat cancer Social History Social History Social History: Surrogate medical decision maker: Kemi Cox
[2024-01-24 23:49] LABS: Basophils Absolute Auto 0.1 K/mm3 (0.0-0.1); Basophils Percent Auto 0.9 % (0.2-1.2); Eosinophils Absolute Auto 0.1 K/mm3 (0-0.3); Eosinophils Percent Auto 1.1 % (0-4.4); Hematocrit 39.5 % (42.0-52.0); Immature Granulocyte Absolute 0.04 K/mm3 (0.00-0.031); Immature Granulocyte Percent A 0.5 % (0-0.5); Lymphocytes Absolute Auto 1.04 K/mm3 (0.9-3.2); Lymphocytes Percent Auto 12.2 % (18.3-44.2); Mean Corpuscular HGB Conc 32.9 g/dl (32-36); Mean Corpuscular Volume 94.3 fl (80-100); Mean Platelet Volume 10.9 fl (7.4-10.4); Monocytes Absolute Auto 0.6 K/mm3 (0.1-0.6); Monocytes Percent Auto 6.7 % (2.6-8.5); Neutrophils Absolute Auto 6.7 K/mm3 (1.3-6.7); Neutrophils Percent Auto 78.6 % (45.5-73.1); Platelet Count Result 255 k/mm3 (150-375); Red Blood Count 4.19 M/mm3 (4.6-6.20); Red Cell Distribution Width 11.8 % (11.5-14.5); White Blood Count 8.6 K/mm3 (4.5-10.0)
[2024-01-24 23:54] LABS: Glucose Point of Care 241 mg/dl (65-105)
[2024-01-25] VITALS (13 sets, daily range): BP systolic 104–154; BP diastolic 59–99; PULSE 66–88; RESP 10–17; TEMP 36.1–37; O2SAT 96–100
[2024-01-25 00:02] LABS: Prothrombin Time 13.2 Seconds (11.1-14.7)
[2024-01-25 00:03] LABS: Partial Thromboplastin Time 25.2 Seconds (22.3-36.8)
[2024-01-25] MEDS: PANTOPRAZOLE 40 MG TABLET PO ×2 (00:10→17:44)
[2024-01-25] MEDS: busPIRone HCL 10 MG TABLET 30 MG PO ×3 (00:10→17:44)
[2024-01-25] MEDS: ATORVASTATIN 20 MG TABLET PO ×2 (00:10→21:02)
[2024-01-25 00:22] LABS: Anion Gap 9 mmol/L (4-12); Blood Urea Nitrogen 24 mg/dL (9-20); Calcium 8.8 mg/dL (8.4-10.2); Carbon Dioxide 30 mmol/L (22-30); Chloride 100 mmol/L (98-107); Estimated CRCL calculation 71 ml/min; Estimated Glomerular Filt Rate > 60; Glucose 219 mg/dL (65-110); Potassium 3.9 mmol/L (3.4-5.0); Sodium 139 mmol/L (137-145)
[2024-01-25] MEDS: VANCOMYCIN 1,500 MG/NS 500 ML 1,500 MG/500 ML BAG 250 MG IVPB ×3 (00:47→23:25)
[2024-01-25 06:08] LABS: Glucose Point of Care 431 mg/dl (65-105)
[2024-01-25] MEDS: INSULIN ASPART (*BKC) 100 UNITS/ML 6 UNITS SUB-Q (06:23)
--- NOTE | 2024-01-25 07:51 | PM.IMPN ---
Progress Note: A&P Assessment and Plan (1) Septic prepatellar bursitis of left knee: Code(s): M71.162 - Other infective bursitis, left knee Status: Acute Assessment and Plan: Wound culture obtained during last admission grew out MRSA. He has been started on vancomycin, pharmacy to dose and monitor. NPO after midnight for I and D in the OR tomorrow per Dr. Juarez. (2) Hypoglycemia: Code(s): E16.2 - Hypoglycemia, unspecified Status: Acute Assessment and Plan: Patient was hypoglycemic with a glucose of 52 on arrival. Glucose has since improved after he ate. Basal insulin was held last night NPO for surgery. (3) Insulin dependent diabetes mellitus: Status: Acute Assessment and Plan: Resumed Lantus 22 units tonight Hyperglycemic this morning, 431. Patient received 6 units of NovoLog. Repeat blood glucose was 411. 12 units of NovoLog ordered now Q6 hour accu check while NPO Initiate sliding scale insulin, Accu-Cheks, and hypoglycemic protocol. (4) Hypertension: Qualifiers: Hypertension type: primary hypertension Qualified Code(s): I10 - Essential (primary) hypertension Code(s): I10 - Essential (primary) hypertension Status: Acute Assessment and Plan: Blood pressures were reviewed and they are stable. Continue lisinopril 5 mg and monitor closely. Plan Thank you for allowing us to participate in this patient's care. Please do not hesitate to contact us with any questions. Subjective Date/time seen: 01/25/24 07:51 Interval history: This is a 53-year-old male with insulin-dependent diabetes mellitus, hypertension, hyperlipidemia, and gastroesophageal reflux disease whom the hospitalist service has been consulted for help managing his medical condition. The patient is known to the hospitalist service from an admit last week in which she was treated for septic prepatellar bursitis of the left knee. 01/24: Patient is seen resting in bed in no acute distress. He is awaiting I and D of his left knee with surgery today. His blood sugar this morning was elevated at 411 for which he received a total of 12 units of NovoLog. Blood sugar now is 212 per his meter. He denies pain to the left knee, no fever or chills. Review of Systems Review of Systems: 12 systems were reviewed and are negative except for as per HPI. Exam Narrative: General: well appearing, appears stated age. HEENT: normocephalic, atraumatic. Mucous membranes moist. EOMI, PERRLA, bilateral sclera anicteric, no conjunctival injection. Neck supple without JVD, lymphadenopathy, or bruit. Respiratory: clear to auscultation bilaterally. No rales/rhonic/wheezes. Cardiovascular: Regular rate and rhythm, normal S1-S2 upon auscultation. No murmurs, rubs, or clicks. PMI is nondisplaced, capillary refill less than 3 second. Abdomen: Soft, round, no pulsatile masses, nondistended and nontender. No rebound, no guarding. No CVA tenderness, no hepatosplenomegaly. Bowel sounds present to all four quadrants. No high pitch or tinkling sounds, resonant to percussion. Extremities: No cyanosis, clubbing, or edema present. Pulses are palpable 2/2. Active ROM to all four extremities. Moderate amount of swelling to the left distal patella with a erythema and warmth. No drainage present. Neuro: Alert and orientated x 4. PERRLA. Cranial nerves 2-12 intact without focal deficit. Skin: Warm, dry, and intact, without rash, erythema, or lesion. Lines: Incisions: Psych: pleasant, cooperative, normal speech, normal affect, no hallucinations, no dysarthria Objective Data Vital Signs Vital Signs: Vital Signs - 24 hr 01/24/24 19:44 01/24/24 20:00 01/24/24 22:00 Temperature 98.8 F 98.7 F Pulse Rate 103 H 92 Respiratory Rate 18 18 Blood Pressure 130/78 126/83 Pulse Oximetry 98 98 Oxygen Delivery Room Air 01/25/24 05:07 Temperature 98.6 F Pulse Rate 75 Respirato
[2024-01-25 07:59] LABS: Glucose Point of Care 411 mg/dl (65-105)
--- NOTE | 2024-01-25 08:51 | PM.IMHP ---
H&P: HPI History of Present Illness Date/Time: 01/25/24 08:51 Chief Complaint: Left Knee Prepatellar Bursitis with MRSA + Aspirate from previous admission Narrative: 53-year-old male readmitted status post left knee prepatellar bursitis with culture results revealing MRSA. Patient initially left AMA over the weekend and return to the outpatient orthopedic clinic for re-evaluation after the results revealed MRSA. He continues to suffer from redness, swelling and warmth to the anterior aspect of the knee despite oral Bactrim. He was evaluated by Dr. Juarez in the outpatient setting as well and determined he would benefit from an I and D in the inpatient setting for IV antibiotics. Review of Systems Constitutional: Constitutional: Reports no additional constitutional complaints, Denies chills, Denies fatigue, Denies fever(s), Denies headache(s) and Denies weakness Eyes: Eyes: Denies change in vision ENT: Reports Normal hearing present and Denies headache(s) Cardiovascular: Cardiovascular: Denies chest pain and Denies dyspnea Respiratory: Respiratory: Denies cough, Denies dyspnea and Denies wheezing Gastrointestinal: Gastrointestinal: Denies constipation, Denies diarrhea, Denies nausea and Denies vomiting Genitourinary: Genitourinary: Denies hematuria, Denies dysuria and Denies urinary urgency Musculoskeletal: Musculoskeletal: Reports as per HPI, Denies numbness and Denies tingling Integumentary/Breasts: Skin/Breast: Reports as per HPI Neurologic: Reports as per HPI, Reports Normal hearing present, Denies headache(s), Denies numbness, Denies tingling and Denies weakness Psychiatric: Psychiatric: Reports no additional psychiatric complaints Endocrine: Endocrine: Reports no additional endocrine complaints and Denies fatigue Hematologic/Lymphatic: Hematologic/Lymphatic: Reports no additional hematologic/lymphatic complaints Allergic/Immunologic: Allergic/Immunologic: Reports no additional allergic/immunologic complaints and Denies wheezing PMFSH Past Medical History Medical History Cannabinoid hyperemesis syndrome Gastroesophageal reflux disease Gastroparesis Hyperlipidemia Hypertension Insulin dependent diabetes mellitus Surgical History Surgical History History of colonoscopy Family History Family History Grandparent Diabetes mellitus Father Acute myocardial infarction FH: throat cancer Father Cerebrovascular accident Mother FH: throat cancer Social History Social History Social History: Surrogate medical decision maker: Kemi Cox, karolina. Code status: Full code. Smoking status: Never smoker Alcohol intake: never Substance use: never Substance use type: marijuana Other substance usage details: DAILY Last use: 01/20/24 Do You Feel Safe in your Home?: Yes Lack of Transportation: No Lack of Food: Never True Current Housing: I Have Housing Concerned About Future Housing: No Difficulty Paying Gas/Electric Bills: No Difficulty Paying for Meds: No Currently Unemployed: No Education: Trade/Vocational Certificate Difficulty w/ Childcare or Family Care: No Living arrangements: alone Additional living arrangements comments: Lives in [place]. Additional occupation/education comments: [employer]. Spiritual care concerns: No Agree to blood products: Yes Meds Home Medications and Allergies Home Medications Medication Instructions Recorded Confirmed Type omeprazole 20 mg capsule,delayed 20 mg PO BID 08/09/19 01/24/24 History release buspirone 15 mg tablet 30 mg PO BID 08/10/19 01/24/24 History trazodone 100 mg tablet 100 mg PO HS PRN Insomnia 08/10/19 01/24/24 History insulin lispro 100 unit/mL See Rx Instructions .Route .COMP
--- NOTE | 2024-01-25 08:56 | ECG_ITS ---
Test Date: 2024-01-25 11:58:03 Measurements Intervals Dierks Rate: 65 P: 69 WV: 198 QRS: 68 QRSD: 97 T: 62 QT: 379 QTc: 396 Interpretive Statements SINUS RHYTHM NORMAL ECG No previous ECG available for comparison Electronically Signed On 01-25-2024 12:46:20 CDT by Yovani Hernandez D.O.
[2024-01-25] MEDS: INSULIN ASPART (*BKC) 100 UNITS/ML SUB-Q ×2 (08:57)
--- NOTE | 2024-01-25 12:08 | WPDHPUPDATE1 ---
History and Physical Update Update Date/Time: 01/25/24 12:08 History and Physical has been reviewed, including an updated exam of the patient. There are NO changes in the patient's condition. Risks, benefits, and alternatives have been discussed and questions answered. Patient agrees to proceed with procedure.
[2024-01-25 12:16] LABS: Glucose Point of Care 151 mg/dl (65-105)
--- NOTE | 2024-01-25 13:56 | WPDANESEPPF ---
Anes - Initial Pre Proc Eval Procedure: Operation Date: 01/25/24 15:00 Proposed Procedures p Incision and Drainage Left Knee Prepatellar Bursa - Joaquin Juarez MD Date/Time: 01/25/24 13:56 Surgeon: Joaquin Juarez MD Pre Op Diagnosis: septic prepatella bursa left knee Patient Data Age: 53 Gender: M Height: 1.7 m Weight: 74 kg Last Vital Signs Temp 37.0 C 01/25/24 05:07 Pulse 75 01/25/24 05:07 Resp 14 01/25/24 05:07 BP 117/59 L 01/25/24 05:07 Pulse Ox 98 01/25/24 05:07 O2 Del Method Room Air 01/24/24 19:44 Allergies Allergy/AdvReac Type Severity Reaction Status Date / Time No Known Allergies Allergy Verified 01/25/24 13:52 Home Medications Medication Instructions Recorded Confirmed Type omeprazole 20 mg capsule,delayed 20 mg PO BID 08/09/19 01/24/24 History release buspirone 15 mg tablet 30 mg PO BID 08/10/19 01/24/24 History trazodone 100 mg tablet 100 mg PO HS PRN Insomnia 08/10/19 01/24/24 History insulin lispro 100 unit/mL See Rx Instructions .Route .COMPLEX 10/07/21 01/24/24 History subcutaneous pen (Humalog KwikPen (U-100) Insulin) ondansetron 8 mg disintegrating 8 mg PO Q8H PRN nausea and 10/07/21 01/24/24 Rx tablet vomiting #20 tabs atorvastatin 20 mg tablet 20 mg PO HS 06/15/23 01/24/24 History insulin glargine 100 unit/mL (3 24 unit subcut QHS 06/15/23 01/24/24 History mL) subcutaneous pen (Lantus Solostar U-100 Insulin) linaclotide 145 mcg capsule 145 mcg PO DAILY Abdominal 06/15/23 01/24/24 History (Linzess) Discomfort sennosides 8.6 mg tablet (Azalea-nunu) 8.6 mg PO BID 06/15/23 01/24/24 History sulfamethoxazole 800 1 tablet PO Q12H #10 tabs 01/22/24 01/24/24 Rx mg-trimethoprim 160 mg tablet (Bactrim DS) cephalexin 500 mg capsule 500 mg PO TID 01/24/24 01/24/24 History lisinopril 5 mg tablet 5 mg PO QAM 01/24/24 01/24/24 History Laboratory Tests 01/24/24 01/24/24 01/24/24 19:59 20:21 23:37 WBC 8.6 K/mm3 (4.5-10.0) RBC 4.19 L M/mm3 (4.6-6.20) Hgb 13.0 L g/dL (14.0-18.0) Hct 39.5 L % (42.0-52.0) MCV 94.3 fl (80-100) MCH 31.0 pg (26-34) MCHC 32.9 g/dl (32-36) RDW 11.8 % (11.5-14.5) Plt Count 255 k/mm3 (150-375) MPV 10.9 H fl (7.4-10.4) Immature Gran % (Auto) 0.5 % (0-0.5) Neut % (Auto) 78.6 H % (45.5-73.1) Lymph % (Auto) 12.2 L % (18.3-44.2) [place] % (Auto) 6.7 % (2.6-8.5) Eos % (Auto) 1.1 % (0-4.4) Baso % (Auto) 0.9 % (0.2-1.2) Lymph # (Auto) 1.04 K/mm3 (0.9-3.2) [place] # (Auto) 0.6 K/mm3 (0.1-0.6) Eos # (Auto) 0.1 K/mm3 (0-0.3) Baso # (Auto) 0.1 K/mm3 (0.0-0.1) Abs Immat Gran (auto) 0.04 H K/mm3 (0.00-0.031) Absolute Neuts (auto) 6.7 K/mm3 (1.3-6.7) Absolute Nucleated RBC 0.000 K/mm3 (0.0-0.012) Nucleated RBC % 0.0 % (0.0-0.2) PT 13.2 Seconds (11.1-14.7) INR 1.0 APTT 25.2 Seconds (22.3-36.8) Sodium 139 mmol/L (137-145) Potassium 3.9 mmol/L (3.4-5.0) Chloride 100 mmol/L (98-107) Carbon Dioxide 30 mmol/L (22-30) Anion Gap 9 mmol/L (4-12) BUN 24 H mg/dL (9-20) Creatinine 1.00 mg/dL (0.7-1.3) Estim Creat Clear Calc 71 ml/min Estimated GFR > 60 (59 - ) Glucose 219 H mg/dL (65-110) POC Capillary Glucose 52 L* mg/dl 111 H mg/dl (65-105) (65-105) Calcium 8.8 mg/dL (8.4-10.2) 01/24/24 01/25/24 01/25/24 23:51 06:05 07:56 WBC RBC Hgb Hct MCV MCH MCHC RDW Plt Count MPV Immature Gran % (Auto) Neut % (Auto) Lymph % (Auto)
--- NOTE | 2024-01-25 14:22 | P.OP_ITS ---
Procedure Note - Detailed Date of Procedure 01/25/24 Pre-op Diagnosis septic prepatella bursa left knee Post-op Diagnosis Same Procedure Performed LEFT KNEE INCISION AND DRAINAGE WITH IRRIGATION AND DEBRIDEMENT OF PRE PATELLA ABSCESS DOWN TO TENDON AND BONE Surgeon Joaquin Juarez MD Anesthesia General Indications MRSA ISOLATED FROM PRE PATELLA BURSAE ASPIRATION LEFT KNEE Findings GROSS PURULENCE Description of Procedure PATIENT WAS TAKEN TO THE OPERATING ROOM AND THE LEFT LEG WAS PREPPED AND DRAPED IN THE USUAL STERILE FASHION. THE PRE PATELLA ABSCESS WAS IDENTIFIED AND THE SKIN WAS INCISED DOWN THROUGH THE SUBCUTANEOUS TISSUES UNTIL THE PRE PATELLA SPACE WAS ENTERED. PURULENCE WAS DRAINED FROM THE SPACE. DISSECTION CONTINUED UNTIL THE SPACE WAS WIDELY INSPECTED. THE BURSAE WAS REMOVED WITH DEEP DI SSECTION FROM THE TIBIAL TUBERCLE TO THE DISTAL POLE OF THE PATELLA. A SHARP KNIFE AND A RONGEUR WERE USED TO EXCISE THE BURSAE ALL THE WAY DOWN TO THE CAPSULE AND TENDINOUS STRUCTURES DOWN TO THE TIBIAL TUBERCLE AND SURROUNDING BONE. THERE WAS GOOD BLEEDING TISSUE. THE PATELLA TENDON WAS NOT VIOLATED. THE WOUND THEN WAS IRRIGATED WITH 4 LITERS OF FLUID AND STERILE BETADINE. THE SKIN WAS REPAIRED WITH 3- PROLINE IN A LOOSE FASHION. STERILE DRESSING WAS APPLIED. THE PATIENT WAS EXTUBATED AND SENT TO THE RECOVERY ROOM. Estimated Blood Loss 50 Drains Yes Pathology None sent Complications No immediate complications Condition Stable Disposition PACU
[2024-01-25] MEDS: LACTATED RINGERS 1,000 ML 30 ML IV CONT (15:38)
[2024-01-25 15:55] LABS: Glucose Point of Care 85 mg/dl (65-105)
[2024-01-25] MEDS: fentaNYL CITRATE INJ (*CRX) 100 MCG/2 ML VIAL 25 MCG IV PUSH ×2 (16:12→16:22)
--- NOTE | 2024-01-25 16:53 | SUR.PHASEI ---
1640-Awaiting floor RN to accept pt.
[2024-01-25 17:36] LABS: Glucose Point of Care 125 mg/dl (65-105)
[2024-01-25] MEDS: SENNA/DOCUSATE SODIUM TABLET 2 TAB PO (17:44)
[2024-01-25] MEDS: SENNOSIDES 8.6 MG TABLET PO (17:44)
[2024-01-25] MEDS: HYDROcodone/acetaminophen (*CRX) 5-325 MG TABLET 1 TAB PO ×2 (17:51→22:05)
[2024-01-25 20:35] LABS: Glucose Point of Care 474 mg/dl (65-105)
[2024-01-25] MEDS: INSULIN GLARGINE (*BKC) 100 UNITS/ML 22 UNITS SUB-Q (20:55)
[2024-01-25] MEDS: ACETAMINOPHEN 325 MG TABLET 650 MG PO (21:00)
[2024-01-25] MEDS: FAMOTIDINE 20 MG TABLET PO (21:02)
[2024-01-25 23:34] LABS: Glucose Point of Care > 500 mg/dl (65-105)
[2024-01-26 01:03] VITALS: BP 132/74; PULSE 83; RESP 16; TEMP 36.4; O2SAT 99
[2024-01-26] MEDS: INSULIN HUMAN REGULAR (*BKC) 100 UNITS/ML 10 UNITS SUB-Q ×2 (01:46→03:08)
[2024-01-26 02:54] LABS: Glucose Point of Care 432 mg/dl (65-105)
[2024-01-26 05:06] LABS: Basophils Absolute Auto 0.1 K/mm3 (0.0-0.1); Basophils Percent Auto 1.1 % (0.2-1.2); Eosinophils Absolute Auto 0.1 K/mm3 (0-0.3); Eosinophils Percent Auto 0.8 % (0-4.4); Hematocrit 35.3 % (42.0-52.0); Hemoglobin 11.9 g/dL (14.0-18.0); Immature Granulocyte Absolute 0.03 K/mm3 (0.00-0.031); Immature Granulocyte Percent A 0.3 % (0-0.5); Lymphocytes Absolute Auto 1.38 K/mm3 (0.9-3.2); Lymphocytes Percent Auto 15.3 % (18.3-44.2); Mean Corpuscular HGB Conc 33.7 g/dl (32-36); Mean Corpuscular Hemoglobin 31.4 pg (26-34); Mean Corpuscular Volume 93.1 fl (80-100); Mean Platelet Volume 11.1 fl (7.4-10.4); Monocytes Absolute Auto 0.5 K/mm3 (0.1-0.6); Neutrophils Percent Auto 77.5 % (45.5-73.1); Platelet Count Result 234 k/mm3 (150-375); Red Blood Count 3.79 M/mm3 (4.6-6.20); Red Cell Distribution Width 11.4 % (11.5-14.5)
[2024-01-26] MEDS: INSULIN ASPART (*BKC) 100 UNITS/ML SUB-Q ×3 (05:17→17:13)
[2024-01-26 05:21] VITALS: BP 127/74; PULSE 83; RESP 16; TEMP 36.6; O2SAT 98
[2024-01-26 05:22] LABS: Alanine Aminotransferase 18 U/L (6-50); Albumin Level 3.1 g/dL (3.5-5.1); Alkaline Phosphatase 52 U/L (38-126); Anion Gap 6 mmol/L (4-12); Aspartate Amino Transferase 19 U/L (17-59); Bilirubin,Total 0.4 mg/dL (0.2-1.3); Blood Urea Nitrogen 20 mg/dL (9-20); Calcium 8.2 mg/dL (8.4-10.2); Carbon Dioxide 30 mmol/L (22-30); Chloride 99 mmol/L (98-107); Estimated CRCL calculation 79 ml/min; Estimated Glomerular Filt Rate > 60; Glucose 325 mg/dL (65-110); Magnesium 2.2 mg/dL (1.6-2.3); Potassium 3.9 mmol/L (3.4-5.0); Sodium 135 mmol/L (137-145)
[2024-01-26 05:25] LABS: Glucose Point of Care 285 mg/dl (65-105)
[2024-01-26 08:12] LABS: Glucose Point of Care 123 mg/dl (65-105)
[2024-01-26] MEDS: SENNOSIDES 8.6 MG TABLET PO ×2 (09:29→17:13)
[2024-01-26] MEDS: CELECOXIB 200 MG CAPSULE PO (09:29)
[2024-01-26] MEDS: busPIRone HCL 10 MG TABLET 30 MG PO ×2 (09:29→17:13)
[2024-01-26] MEDS: LINACLOTIDE 145 MCG CAPSULE PO (09:29)
[2024-01-26] MEDS: PANTOPRAZOLE 40 MG TABLET PO ×2 (09:29→17:13)
[2024-01-26] MEDS: lisinopriL 5 MG TABLET PO (09:30)
[2024-01-26] MEDS: FAMOTIDINE 20 MG TABLET PO ×2 (09:30→20:16)
[2024-01-26] MEDS: SENNA/DOCUSATE SODIUM TABLET 2 TAB PO ×2 (09:30→17:13)
[2024-01-26 10:01] VITALS: BP 128/68; PULSE 80; RESP 16; TEMP 36.5; O2SAT 98
[2024-01-26 11:31] LABS: Vancomycin Trough 9.3 ug/mL (10.0-20.0)
[2024-01-26 12:01] LABS: Glucose Point of Care 284 mg/dl (65-105)
[2024-01-26] MEDS: VANCOMYCIN 2,000 MG/NS 500 ML 2,000 MG/500 ML BAG 250 MG IVPB (12:08)
[2024-01-26 12:30] VITALS: BMI 26.2
--- NOTE | 2024-01-26 12:32 | PC.NURSE ---
Patient resting in bed. No complaints of pain. Trio round with therapy. Sutures intact. Patient ambulating in the hallway without difficulty. Thigh high NATE hose in place. Patient is very pleasant and cooperative. Patient hopes to go home today.
--- NOTE | 2024-01-26 14:31 | PM.PNORT ---
Progress Note: A&P Assessment and Plan (1) Septic prepatellar bursitis of left knee: Code(s): M71.162 - Other infective bursitis, left knee Status: Acute (2) MRSA (methicillin resistant staph aureus) culture positive: Code(s): Z22.322 - Carrier or suspected carrier of Methicillin resistant Staphylococcus aureus Status: Acute Plan POD 1 DOING WELL. MRSA PRE PATELLA BURSITIS. WE ARE AWAITING ID CONSULT FOR RECOMMENDATIONS REGARDING SQE ABX COVERAGE AND THE NEED FOR PIC LINE PLACEMENT. Subjective Subjective Date/Time Seen: 01/26/24 14:31 Interval history: POD 1 DOING WELL. AFEBRILE. NO PAIN Exam Extrem: Other: VSS AFEBRILE DRESSING DRY NV INTACT CALF SOFT NON TENDER, MINIMAL CELLULITIS Objective Data Vital Signs Vital Signs: Vital Signs - 24 hr 01/25/24 15:38 01/25/24 15:50 01/25/24 16:05 Temperature 36.1 C L Pulse Rate 66 69 68 Respiratory Rate 17 16 10 L Blood Pressure 104/75 125/85 136/85 Pulse Oximetry 100 100 100 Oxygen Delivery Simple Face Mask Simple Face Mask Room Air Oxygen Flow Rate 6 6 01/25/24 16:20 01/25/24 16:35 01/25/24 16:50 Temperature Pulse Rate 78 68 69 Respiratory Rate 17 12 15 Blood Pressure 130/80 131/89 141/84 H Pulse Oximetry 96 97 98 Oxygen Delivery Room Air Room Air Room Air Oxygen Flow Rate 01/25/24 17:15 01/25/24 17:30 01/25/24 18:00 Temperature 36.5 C 36.5 C 36.5 C Pulse Rate 73 84 83 Respiratory Rate 16 16 17 Blood Pressure 133/99 H 140/91 H 154/79 H Pulse Oximetry 98 98 98 Oxygen Delivery Oxygen Flow Rate 01/25/24 17:00 01/25/24 21:10 01/25/24 20:00 Temperature 36.5 C 36.6 C Pulse Rate 80 88 Respiratory Rate 17 16 Blood Pressure 150/74 H 133/77 Pulse Oximetry 98 98 Oxygen Delivery Room Air Oxygen Flow Rate 01/26/24 01:03 01/26/24 05:21 01/26/24 10:01 Temperature 36.4 C 36.6 C 36.5 C Pulse Rate 83 83 80 Respiratory Rate 16 16 16 Blood Pressure 132/74 127/74 128/68 Pulse Oximetry 99 98 98 Oxygen Delivery Oxygen Flow Rate 01/26/24 10:59 Temperature Pulse Rate Respiratory Rate Blood Pressure Pulse Oximetry Oxygen Delivery Room Air Oxygen Flow Rate Intake/Output Intake/Output: Intake & Output 01/23/24 01/24/24 01/25/24 01/26/24 23:59 23:59 23:59 23:59 Intake Total 1760 1712 Output Total 600 2100 Balance 1160 -388 Meds/Results Medications: Active Medications Generic Name Dose Route Start Last Admin Trade Name Freq PRN Reason Stop Dose Admin Acetaminophen 650 mg 01/25/24 09:08 01/25/24 21:00 Acetaminophen 325 Mg Tablet PO 650 mg Q4H PRN Administration Mild Pain (1-3) or Fever Hydrocodone Bitart/Acetaminophen 1 tab 01/25/24 09:08 01/25/24 22:05 Hydrocodone/Acetaminophen (*Crx) 5-325 Mg Tablet PO 1 tab Q4H PRN Administration Moderate Pain (4-6) Atorvastatin Calcium 20 mg 01/24/24 23:05 01/25/24 21:02 Atorvastatin 20 Mg Tablet PO 20 mg HS KALPANA Administration Buspirone HCl 30 mg 01/24/24 23:05 01/26/24 09:29 Buspirone Hcl 10 Mg Tablet PO 30 mg BID KALPANA Administration Celecoxib 200 mg 01/26/24 08:00 01/26/24 09:29 Celecoxib 200 Mg Capsule PO 200 mg DAILY@0800 KALPANA Administration Dextrose 12.5 gm 01/24/24 20:07 Dextrose 50% 25 Gm/50 Ml Syringe IV PUSH PRN PRN Hypoglycemia Protocol Diazepam 5 mg 01/25/24 17:03 Diazepam (*Crx) 5 Mg Tablet PO Q8H PRN Muscle Spasm Famotidine 20 mg 01/25/24 21:00 01/26/24 09:30 Famotidine 20 Mg Tablet PO 20 mg Q12HR KALPANA Administration Glucagon 1 mg 01/24/24 20:07 Glucagon For Inj 1 Mg Vial IM PRN PRN Hypoglycemia Protocol Glucose 15 gm 01/24/24 20:07 Glucose Oral Gel 15 Gm Of Glucse In 37.5 Gm Tube PO PRN PRN Hypoglycemia Protocol Dextrose 1,000 mls @ 100 mls/hr 01/24/24 20:07 Dextrose 5% 1,000 Ml IVPB PRN PRN Hypoglycemia Protocol
--- NOTE | 2024-01-26 14:43 | WPDANESPN ---
Anes - Prog Note Post-Op Date/Time: 01/26/24 14:43 Cardiovascular status: normal Respiratory status: normal Airway patency: baseline Mental status: baseline Post-Op hydration status: normal Vital Signs: Last Vital Signs Temp 36.5 C 01/26/24 10:01 Pulse 80 01/26/24 10:01 Resp 16 01/26/24 10:01 BP 128/68 01/26/24 10:01 Pulse Ox 98 01/26/24 10:01 O2 Del Method Room Air 01/26/24 10:59 O2 Flow Rate 6 01/25/24 15:50 Pain Score (VAS): 08/21 I/O: Intake & Output 01/25/24 01/26/24 01/26/24 23:59 07:59 15:59 Intake Total 540 1250 462 Output Total 600 2100 Balance -60 -850 462 Laboratory Tests 01/26/24 04:47 01/26/24 04:47 01/25/24 01/25/24 01/25/24 15:52 17:33 20:32 WBC RBC Hgb Hct MCV MCH MCHC RDW Plt Count MPV Immature Gran % (Auto) Neut % (Auto) Lymph % (Auto) [place] % (Auto) Eos % (Auto) Baso % (Auto) Lymph # (Auto) [place] # (Auto) Eos # (Auto) Baso # (Auto) Abs Immat Gran (auto) Absolute Neuts (auto) Absolute Nucleated RBC Nucleated RBC % Sodium Potassium Chloride Carbon Dioxide Anion Gap BUN Creatinine Estim Creat Clear Calc Estimated GFR Glucose POC Capillary Glucose 85 125 H 474 H Calcium Magnesium Total Bilirubin AST ALT Alkaline Phosphatase Total Protein Albumin Vancomycin Trough 01/25/24 01/26/24 01/26/24 23:27 02:51 04:47 WBC 9.0 RBC 3.79 L Hgb 11.9 L Hct 35.3 L MCV 93.1 MCH 31.4 MCHC 33.7 RDW 11.4 L Plt Count 234 MPV 11.1 H Immature Gran % (Auto) 0.3 Neut % (Auto) 77.5 H Lymph % (Auto) 15.3 L [place]rell % (Auto) 5.0 Eos % (Auto) 0.8 Baso % (Auto) 1.1 Lymph # (Auto) 1.38 [place] # (Auto) 0.5 Eos # (Auto) 0.1 Baso # (Auto) 0.1 Abs Immat Gran (auto) 0.03 Absolute Neuts (auto) 7.0 H Absolute Nucleated RBC 0.000 Nucleated RBC % 0.0 Sodium 135 L Potassium 3.9 Chloride 99 Carbon Dioxide 30 Anion Gap 6 BUN 20 Creatinine 0.90 Estim Creat Clear Calc 79 Estimated GFR > 60 Glucose 325 H POC Capillary Glucose > 500 H* 432 H Calcium 8.2 L Magnesium 2.2 Total Bilirubin 0.4 AST 19 ALT 18 Alkaline Phosphatase 52 Total Protein 6.0 L Albumin 3.1 L Vancomycin Trough 01/26/24 01/26/24 01/26/24 05:16 08:08 10:48 WBC RBC Hgb Hct MCV MCH MCHC RDW Plt Count MPV Immature Gran % (Auto) Neut % (Auto) Lymph % (Auto) [place]rell % (Auto) Eos % (Auto) Baso % (Auto) Lymph # (Auto) [place] # (Auto) Eos # (Auto) Baso # (Auto) Abs Immat Gran (auto) Absolute Neuts (auto) Absolute Nucleated RBC Nucleated RBC % Sodium Potassium Chloride Carbon Dioxide Anion Gap BUN Creatinine Estim Creat Clear Calc Estimated GFR Glucose POC Capillary Glucose 285 H 123 H Calcium Magnesium Total Bilirubin AST ALT Alkaline Phosphatase Total Protein Albumin Vancomycin Trough 9.3 L 01/26/24 11:58 WBC RBC Hgb Hct MCV MCH MCHC RDW Plt Count MPV Immature Gran % (Auto) Neut % (Auto) Lymph % (Auto) Terrell % (Auto) Eos % (Auto) Baso % (Auto) Lymph # (Auto) [place] # (Auto) Eos # (Auto) Baso # (Auto) Abs Immat Gran (auto) Absolute Neuts (auto) Absolute Nucleated RBC Nucleated RBC % Sodium Potassium Chloride Carbon Dioxide Anion Gap BUN Creatinine Estim Creat Clear Calc Estimated GFR Glucose POC Capillary Glucose 284 H Calcium Magnesium Total Bilirubin AST ALT Alkaline Phosphatase Total Protein Albumin Vancomycin Trough Microbiology 01/25/24 09:37 Blood Blood Culture - Preliminary 01/25/24 09:40 Blood Blood Culture - Preliminary Post-procedural complaints: none Patient Feedback: P
[2024-01-26 14:48] VITALS: BP 128/74; PULSE 78; RESP 16; TEMP 36.6; O2SAT 99
--- NOTE | 2024-01-26 15:43 | PHAR ---
SPOKE WITH DR PRATER ABOUT ID PHARMACIST RECOMMENDATIONS OF CONTINUE VANCOMYCIN OUTPATIENT FOR 4-6 WEEKS AND TRANSITION TO ORAL ANTIBIOTICS AFTER COMPLETION OF VANCOMYCIN.
--- NOTE | 2024-01-26 16:18 | PM.IMPN ---
Progress Note: A&P Assessment and Plan (1) Septic prepatellar bursitis of left knee: Code(s): M71.162 - Other infective bursitis, left knee Status: Acute Assessment and Plan: 01/26/24: Wound culture obtained during last admission grew out MRSA. Postop day 1 from an I&D Continue vancomycin Plan for PICC line today and will likely need IV vancomycin on an outpatient basis (2) Hypoglycemia: Code(s): E16.2 - Hypoglycemia, unspecified Status: Acute Assessment and Plan: 01/26/24: Resolved (3) Insulin dependent diabetes mellitus: Status: Acute Assessment and Plan: 01/26/24: Blood sugars ranging 284 to 325 Last hemoglobin A1c 7.8 Accu-Cheks AC and HS Lantus 24 units subQ at bedtime Will also add 6 units t.i.d. with meals High-dose sliding scale insulin ordered Hypoglycemic protocol in place Continue diabetic diet (4) Hypertension: Qualifiers: Hypertension type: primary hypertension Qualified Code(s): I10 - Essential (primary) hypertension Code(s): I10 - Essential (primary) hypertension Status: Acute Assessment and Plan: 01/26/24: Blood pressure ranging 127/74 to 128/74 Continue lisinopril Plan Thank you for allowing us to participate in this patient's care. Please do not hesitate to contact us with any questions or re-consult as needed Time Spent With Patient Time with patient: 25 - 35 minutes Subjective Date/time seen: 01/26/24 16:18 Interval history: Patient denies any new complaints today. He is awaiting a PICC line for IV antibiotics and looking to be discharged at some point today or tomorrow morning. Patient is back on all of his baseline medication and is stable at this time. We will go ahead and sign off today. Review of Systems Review of Systems: 12 systems were reviewed and are negative except for as per HPI. Exam Narrative: General: In no acute distress, well nourished Head: atraumatic, no encephalopathy Eyes: EOMI, PERRLA, sclera clear ENT: moist mucous membranes, nasal passages clear Neck: supple, no JVD, no adenopathy, trachea midline Cardiac: Normal S1 and S2. RRR, No murmur, gallops or friction rubs, peripheral pulses intact. Respiratory: Lungs clear to auscultation, no adventitious lung sounds, currently on room air Gastrointestinal: soft, non-distended, non-tender, normoactive bowel sounds. : voiding without difficulty. Extremities: moves all extremities well, no edema, good ROM, strength 5/5 Skin: Left knee dressing clean dry and intact Neuro: Alert and oriented x4, cranial nerves intact, no neuro deficits. Psych: normal mood, normal affect, interactive Objective Data Vital Signs Vital Signs: Vital Signs - 24 hr 01/25/24 16:20 01/25/24 16:35 01/25/24 16:50 Temperature Pulse Rate 78 68 69 Respiratory Rate 17 12 15 Blood Pressure 130/80 131/89 141/84 H Pulse Oximetry 96 97 98 Oxygen Delivery Room Air Room Air Room Air 01/25/24 17:15 01/25/24 17:30 01/25/24 18:00 Temperature 97.7 F 97.7 F 97.7 F Pulse Rate 73 84 83 Respiratory Rate 16 16 17 Blood Pressure 133/99 H 140/91 H 154/79 H Pulse Oximetry 98 98 98 Oxygen Delivery 01/25/24 17:00 01/25/24 21:10 01/25/24 20:00 Temperature 97.7 F 97.8 F Pulse Rate 80 88 Respiratory Rate 17 16 Blood Pressure 150/74 H 133/77 Pulse Oximetry 98 98 Oxygen Delivery Room Air 01/26/24 01:03 01/26/24 05:21 01/26/24 10:01 Temperature 97.6 F 97.8 F 97.7 F Pulse Rate 83 83 80 Respiratory Rate 16 16 16 Blood Pressure 132/74 127/74 128/68 Pulse Oximetry 99 98 98 Oxygen Delivery 01/26/24 10:59 01/26/24 14:48 Temperature 97.8 F Pulse Rate 78 Respiratory Rate 16 Blood Pressure 128/74 Pulse Oximetry 99 Oxygen Delivery Room Air Intake/Output Intake/Output: Intake & Output 01/23/24 01/24/24 01/25/24 01/26/24 23:59 23:59 23:59 23:59 Intake Total 1760 0062 Output Total
--- NOTE | 2024-01-26 16:41 | PC.NURSE ---
Notified of PICC line order at 1600. After speaking with Charge Nurse it does not appear patient will be discharged this evening and blood cultures won't have 48 hours until the AM of 01/27/24. Given this PICC line will be placed tomorrow providing cultures remain negative.
[2024-01-26 17:13] LABS: Glucose Point of Care 431 mg/dl (65-105)
[2024-01-26] MEDS: INSULIN ASPART (*BKC) 100 UNITS/ML 6 UNITS SUB-Q (17:14)
[2024-01-26 18:48] VITALS: BP 130/70; PULSE 74; RESP 17; TEMP 36.4; O2SAT 99
[2024-01-26] MEDS: INSULIN GLARGINE (*BKC) 100 UNITS/ML 24 UNITS SUB-Q (20:15)
[2024-01-26] MEDS: ATORVASTATIN 20 MG TABLET PO (20:16)
[2024-01-26 20:27] LABS: Glucose Point of Care 366 mg/dl (65-105)
[2024-01-27] MEDS: INSULIN ASPART (*BKC) 100 UNITS/ML SUB-Q (00:03)
[2024-01-27 00:12] LABS: Glucose Point of Care 268 mg/dl (65-105)
[2024-01-27 05:36] LABS: Basophils Absolute Auto 0.1 K/mm3 (0.0-0.1); Basophils Percent Auto 1.1 % (0.2-1.2); Eosinophils Absolute Auto 0.2 K/mm3 (0-0.3); Eosinophils Percent Auto 3.2 % (0-4.4); Hematocrit 31.4 % (42.0-52.0); Immature Granulocyte Absolute 0.03 K/mm3 (0.00-0.031); Immature Granulocyte Percent A 0.5 % (0-0.5); Lymphocytes Absolute Auto 1.49 K/mm3 (0.9-3.2); Lymphocytes Percent Auto 23.7 % (18.3-44.2); Mean Corpuscular Hemoglobin 32.4 pg (26-34); Mean Corpuscular Volume 92.6 fl (80-100); Mean Platelet Volume 10.7 fl (7.4-10.4); Monocytes Absolute Auto 0.4 K/mm3 (0.1-0.6); Neutrophils Absolute Auto 4.1 K/mm3 (1.3-6.7); Neutrophils Percent Auto 64.5 % (45.5-73.1); Platelet Count Result 214 k/mm3 (150-375); Red Blood Count 3.39 M/mm3 (4.6-6.20); Red Cell Distribution Width 11.6 % (11.5-14.5); White Blood Count 6.3 K/mm3 (4.5-10.0)
[2024-01-27 05:55] LABS: Alanine Aminotransferase 16 U/L (6-50); Albumin Level 2.8 g/dL (3.5-5.1); Alkaline Phosphatase 48 U/L (38-126); Anion Gap 4 mmol/L (4-12); Aspartate Amino Transferase 17 U/L (17-59); Bilirubin,Total 0.4 mg/dL (0.2-1.3); Blood Urea Nitrogen 18 mg/dL (9-20); Calcium 7.9 mg/dL (8.4-10.2); Carbon Dioxide 33 mmol/L (22-30); Chloride 101 mmol/L (98-107); Estimated CRCL calculation 88 ml/min; Estimated Glomerular Filt Rate > 60; Glucose 178 mg/dL (65-110); Sodium 138 mmol/L (137-145)
[2024-01-27 06:23] VITALS: BP 131/69; PULSE 71; RESP 18; TEMP 36.4; O2SAT 100
[2024-01-27 07:43] LABS: Glucose Point of Care 164 mg/dl (65-105)
[2024-01-27] MEDS: PANTOPRAZOLE 40 MG TABLET PO (08:05)
[2024-01-27] MEDS: LINACLOTIDE 145 MCG CAPSULE PO (08:05)
[2024-01-27] MEDS: busPIRone HCL 10 MG TABLET 30 MG PO (08:05)
[2024-01-27] MEDS: FAMOTIDINE 20 MG TABLET PO (08:05)
[2024-01-27] MEDS: lisinopriL 5 MG TABLET PO (08:05)
[2024-01-27 08:09] VITALS: RESP 16; O2SAT 98
[2024-01-27] MEDS: INSULIN ASPART (*BKC) 100 UNITS/ML 6 UNITS SUB-Q ×2 (08:09→11:48)
[2024-01-27] MEDS: CELECOXIB 200 MG CAPSULE PO (08:12)
[2024-01-27 08:13] VITALS: BP 115/68; PULSE 75; RESP 16; TEMP 36.1; O2SAT 98
[2024-01-27] MEDS: LIDOCAINE HCL 1% PF INJ 5 ML VIAL INFILTRATE (09:40)
[2024-01-27] MEDS: VANCOMYCIN 2,000 MG/NS 500 ML 2,000 MG/500 ML BAG 250 MG IVPB ×2 (11:17)
[2024-01-27 11:42] LABS: Glucose Point of Care 167 mg/dl (65-105)
--- NOTE | 2024-01-27 12:23 | PM.PNORT ---
Progress Note: A&P Assessment and Plan (1) Septic prepatellar bursitis of left knee: Code(s): M71.162 - Other infective bursitis, left knee Status: Acute Assessment and Plan: POD #2: LEFT KNEE INCISION AND DRAINAGE WITH IRRIGATION AND DEBRIDEMENT OF PRE PATELLA ABSCESS DOWN TO TENDON AND BONE WBAT. Continue pain control. Ice Knee. Protect skin. Monitor Dressing. Change prior to discharge. Bowel Regimen. PICC in place. Home with IV infusion with vancomycin x4 weeks, then transition to oral antibiotics. Patient's PCP to monitor and follow antibiotics and adjust accordingly. Will see in the outpatient clinic in 2 weeks for suture removal. Dispo: Home with IV infusion pending visit with [facility] for infusion training. (2) Hypoglycemia: Code(s): E16.2 - Hypoglycemia, unspecified Status: Acute Assessment and Plan: Monitor BG at home to promote healing. (3) Insulin dependent diabetes mellitus: Status: Acute Assessment and Plan: Continue diabetic diet (4) Hypertension: Qualifiers: Hypertension type: primary hypertension Qualified Code(s): I10 - Essential (primary) hypertension Code(s): I10 - Essential (primary) hypertension Status: Acute Assessment and Plan: Continue lisinopril Time Spent With Patient Time: Reviewed history, exam, radiographs and current labs with attending MD and covering surgeon, Dr. Juarez, who agrees with current plan as indicated above. No further recommendations from Dr. Juarez at this time. Time with patient: 25 - 35 minutes Subjective Subjective Date/Time Seen: 01/27/24 12:23 Post Op day: 2 Interval history: POD #2: LEFT KNEE INCISION AND DRAINAGE WITH IRRIGATION AND DEBRIDEMENT OF PRE PATELLA ABSCESS DOWN TO TENDON AND BONE Patient doing well. Pain well controlled. Tolerating antibiotic therapy. Ready for d/c today. Review of Systems Review of Systems: All systems reviewed & are unremarkable except as noted in HPI and below Exam Const: General: comfortable and no acute distress Nutritional Appearance: average body habitus Orientation/consciousness: patient oriented x3 Limitations: no limitations HENMT: Head: normal to inspection Ears: hearing grossly normal bilaterally Face/Nose/Sinus: Normal external nose present and normal facial exam Face and sinus: normal facial exam Mouth: Yes moist mucous membranes Teeth and gingiva: dentition normal Eyes: General: appearance normal, both eyes and all related structures Pupils: Equal, round and reactive pupils present EOM: EOMs intact bilaterally Neck: Neck: supple and no JVD Chest: Chest palpation & inspection: normal inspection of the chest Resp: Effort & Inspection: normal respiratory effort Cardio: Jugular venous distension: no JVD Rate: regular rate Rhythm: regular rhythm GI: Inspection: non-distended GI Palp: Yes Soft to palpation and No Tenderness to palpation present (GI) Neuro: General: gait normal Cranial nerves: Yes Equal, round and reactive pupils present Cognition (Neuro): normal cognition Speech: normal speech Extrem: Left lower extremity: knee Details: tenderness Location: of the patella, swelling (NO JOINT EFFUSION ) Location: of the patella and of the pre-patellar area and normal ROM and lower leg Details: erythema Location: of the proximal lower leg Location: medially, laterally and anteriorly and pitting edema Details: 1+ Other: Sutures intact. No redness, warmth or swelling. Dressing covering c/d/i. Psych: Mental Status: mental status grossly normal Affect: normal affect Objective Data Vital Signs Vital Signs: Vital Signs - 24 hr 01/26/24 14:48 01/26/24 18:48 01/26/24 20:00 Temperature 36.6 C 36.4 C Pulse Rate 78 74 Respiratory Rate 16 17 Blood Pressure 128/74 130/70 Pulse Oximetry 99 99 Oxygen Delivery Room Air 01/27/24 06:23 01/27/24 08:13 01/27/24 08:09 Temperature 36
--- NOTE | 2024-01-27 13:08 | PM.DS ---
DS: Admitting Diagnosis Discharge Date 01/27/2024 Admitting Diagnosis Left Knee Prepatellar Bursitis with +MRSA cultures DS: Discharge Diagnosis Discharge Diagnosis (1) Septic prepatellar bursitis of left knee: Code(s): M71.162 - Other infective bursitis, left knee Status: Acute Assessment and Plan: POD #2: LEFT KNEE INCISION AND DRAINAGE WITH IRRIGATION AND DEBRIDEMENT OF PRE PATELLA ABSCESS DOWN TO TENDON AND BONE WBAT. Continue pain control. Ice Knee. Protect skin. Monitor Dressing. Change prior to discharge. Bowel Regimen. PICC in place. Home with IV infusion with vancomycin x4 weeks, then transition to oral antibiotics. Patient's PCP to monitor and follow antibiotics and adjust accordingly. Will see in the outpatient clinic in 2 weeks for suture removal. Dispo: Home with IV infusion pending visit with [facility] for infusion training. (2) Hypoglycemia: Code(s): E16.2 - Hypoglycemia, unspecified Status: Acute Assessment and Plan: Monitor BG at home to promote healing. (3) Insulin dependent diabetes mellitus: Status: Acute Assessment and Plan: Continue diabetic diet (4) Hypertension: Qualifiers: Hypertension type: primary hypertension Qualified Code(s): I10 - Essential (primary) hypertension Code(s): I10 - Essential (primary) hypertension Status: Acute Assessment and Plan: Continue lisinopril DS: Summary Hospital Course Reason for hospitalization: LEFT KNEE INCISION AND DRAINAGE WITH IRRIGATION AND DEBRIDEMENT OF PRE PATELLA ABSCESS DOWN TO TENDON AND BONE Hospital Course: 53 year old male admitted s/p positive wound culture of left prepatellar bursa abscess for IV antibiotics and I&D by Dr. Juarez. The patient did well with antibiotic infusion and with surgical intervention. The patient has been cleared to be discharged home with home health for IV infusion at this time. All discharge care instructions reviewed at depth. New medications reviewed. Follow up planned for 2 weeks in the outpatient orthopedic clinic with Dr. Juarez for suture removal. Dr. Pierre has agreed to follow antibiotics while outpatient. Plan for 4 weeks of IV antibiotics and then transition to oral antibiotics. Will review oral antibiotics at 1st follow up appt with Dr. Ann Juarez in agreement with safe discharge at this time. Status at Discharge Functional status at discharge: independent ambulation Overall status at discharge: patient is progressing back to baseline Time Spent with Patient Time attestation: Total time spent providing and/or coordinating discharge services: Exam Const: General: comfortable, no acute distress and average body habitus Nutritional Appearance: average body habitus Orientation/consciousness: patient oriented x3 Limitations: no limitations HENMT: Head: normal to inspection Ears: hearing grossly normal bilaterally Face/Nose/Sinus: Normal external nose present and normal facial exam Face and sinus: normal facial exam Mouth: Yes moist mucous membranes Teeth and gingiva: dentition normal Eyes: General: appearance normal, both eyes and all related structures Pupils: Equal, round and reactive pupils present EOM: EOMs intact bilaterally Neck: Neck: supple and no JVD Chest: Chest palpation & inspection: normal inspection of the chest Resp: Effort & Inspection: normal respiratory effort Cardio: Jugular venous distension: no JVD Rate: regular rate Rhythm: regular rhythm GI: Inspection: non-distended Neuro: General: patient oriented x3 and gait normal Cranial nerves: Yes Equal, round and reactive pupils present and Yes Normal hearing present Cognition (Neuro): normal cognition Speech: normal speech Extrem: Left lower extremity: knee Details: tenderness Location: of the patella, swelling (NO JOINT EFFUSION ) Location: of the patella and of the pre-patellar area and normal ROM and lower leg Deta
[2024-01-27] MEDS: CENTRAL LINE FLUSH 10 ML IV PUSH (13:21)
[2024-01-27 13:48] VITALS: BP 124/68; PULSE 74; RESP 16; TEMP 36.6; O2SAT 99
== END 2024-01-27 15:00 | disposition home or self-care (01) | DRG 317 ==
PROVIDERS: Internal Medicine; Nurse Practitioner Acute Care; Physician Assistant; Admitting Provider Orthopaedic Surgery; PCP Family Medicine; Visit Provider Orthopaedic Surgery
PROC: 0MBP0ZZ Excision of Left Knee Bursa and Ligament, Open Approach (ICD-10-PCS; principal; 2024-01-25 15:00)
DX: M71.162 Other infective bursitis, left knee (principal); E11.649 Type 2 diabetes mellitus with hypoglycemia without coma; I10 Essential (primary) hypertension; E78.5 Hyperlipidemia, unspecified; K21.9 Gastro-esophageal reflux disease without esophagitis; Z79.4 Long term (current) use of insulin; Z22.322 Carrier or suspected carrier of Methicillin resistant Staphylococcus aureus
CPT/HCPCS: 36415; 36569; 80048; 80053; 80202; 82948; 83735; 85025; 85610; 85730; 87040; 93005; 97161; A9270; J1100; J1170; J1815; J2250; J2371; J2405; J2704; J3010; J3370; J7120

== ENCOUNTER 2024-02-02 08:04 | Outpatient (CLI) | payer OTHER, SELFPAY ==
[2024-02-02 08:20] VITALS: BP 140/75; PULSE 80; RESP 18; TEMP 36.2
[2024-02-02] MEDS: HEPARIN SODIUM LOCK FLUSH 500 UNITS/5 ML SYRINGE IV PUSH (08:40)
[2024-02-02 09:18] LABS: Hematocrit 32.1 % (40.0-54.0); Hemoglobin 11.1 g/dL (14.0-18.0); Mean Corpuscular HGB Conc 34.6 g/dL (32-36); Mean Corpuscular Hemoglobin 32.1 pg (27.0-31.0); Mean Corpuscular Volume 92.8 fL (78.0-102.0); Mean Platelet Volume 11.8 fl (8.7-11.0); Platelet Count Result 189 K/mm3 (150-420); Red Blood Count 3.46 M/mm3 (4.70-6.10); Red Cell Distribution Width 12.2 % (11.6-14.4)
[2024-02-02 09:33] LABS: Alanine Aminotransferase 53 U/L (16-63); Albumin Level 2.8 g/dL (3.4-5.0); Alkaline Phosphatase 75 U/L (46-116); Anion Gap 5 mmol/L (4-12); Aspartate Amino Transferase 32 U/L (15-37); Bilirubin,Total 0.2 mg/dL (0.00-1.00); Blood Urea Nitrogen 16 mg/dL (7-18); Calcium 8.4 mg/dL (8.5-10.1); Carbon Dioxide 31 mmol/L (21-32); Chloride 104 mmol/L (98-108); Estimated Glomerular Filt Rate > 60; Glucose 181 mg/dL (70-99); Osmolality Calculated 296 mOsm/kg (285-295); Sodium 140 mmol/L (136-145); Total Protein 5.7 g/dL (6.4-8.2)
[2024-02-02 09:35] LABS: CRP < 0.5 mg/dL (0.0-0.9)
--- NOTE | 2024-02-02 09:50 | PC.NURSE ---
Here at 0815 for blood draw from PICC line left arm, dressing change to PICC line, 0825 blood drawn and taken to lab, 0835 dressing change to PICC line completed using sterile technique, tolerated well, ambulatory upon discharge at 0845, states will go home to do vancomycin infusion and put his legs up. No questions upon discharge to home
[2024-02-02 09:55] VITALS: BP 112/50; PULSE 78; RESP 18; TEMP 36.3; O2SAT 96; BMI 30.9
== END 2024-02-02 08:05 | disposition home or self-care (01) ==
LOC: CHSTREATRM 08:09
PROVIDERS: PCP Family Medicine; Visit Provider Orthopaedic Surgery
DX: M71.162 Other infective bursitis, left knee (principal)
CPT/HCPCS: 36415; 36591; 80053; 80202; 85027; 86140

== ENCOUNTER 2024-02-09 07:57 | Outpatient (CLI) | payer OTHER, SELFPAY ==
[2024-02-09 08:05] VITALS: BMI 25.9
[2024-02-09 08:10] VITALS: BP 144/79; PULSE 77; RESP 18; TEMP 36.5
[2024-02-09] MEDS: HEPARIN SODIUM LOCK FLUSH 500 UNITS/5 ML SYRINGE IV PUSH (08:30)
--- NOTE | 2024-02-09 08:44 | PC.NURSE ---
0805 Presents for OP PICC line blood draw and dressing change, 0810 vitals taken, 0820 blood drawn per picc line using asceptic technique, toelrated well, flushed with saline and heparin. 0825 Dressing change to PICC line completed, tolerated well, no sign of infection, cap changed. Patient administers home med of vancomycin, labs taken to lab and patient has instructions at home on how to use PICC line and how to administer medication, no questions, discharged ambulatory at 0835.
[2024-02-09 08:46] LABS: Basophils Percent Auto 1.2 % (0.0-1.0); Eosinophils Absolute Auto 0.08 K/mm3 (0.02-0.50); Eosinophils Percent Auto 0.9 % (1.0-6.0); Hematocrit 33.5 % (40.0-54.0); Hemoglobin 11.7 g/dL (14.0-18.0); Immature Granulocyte Absolute 0.04 K/mm3 (0.00-0.00); Immature Granulocyte Percent A 0.5 % (0.0-0.0); Lymphocytes Absolute Auto 0.71 K/mm3 (1.10-4.50); Lymphocytes Percent Auto 8.3 % (18.0-42.0); Mean Corpuscular HGB Conc 34.9 g/dL (32-36); Mean Corpuscular Hemoglobin 31.9 pg (27.0-31.0); Mean Corpuscular Volume 91.3 fL (78.0-102.0); Mean Platelet Volume 11.7 fl (8.7-11.0); Monocytes Absolute Auto 0.51 K/mm3 (0.10-0.90); Neutrophils Absolute Auto 7.08 K/mm3 (1.70-7.20); Neutrophils Percent Auto 83.1 % (50.0-70.0); Platelet Count Result 171 K/mm3 (150-420); Red Blood Count 3.67 M/mm3 (4.70-6.10); Red Cell Distribution Width 12.5 % (11.6-14.4); White Blood Count 8.5 K/mm3 (4.8-10.8)
[2024-02-09 09:18] LABS: Alanine Aminotransferase 26 U/L (16-63); Albumin Level 3.1 g/dL (3.4-5.0); Alkaline Phosphatase 73 U/L (46-116); Anion Gap 6 mmol/L (4-12); Aspartate Amino Transferase 16 U/L (15-37); Bilirubin,Total 0.6 mg/dL (0.00-1.00); Blood Urea Nitrogen 15 mg/dL (7-18); Calcium 8.1 mg/dL (8.5-10.1); Carbon Dioxide 30 mmol/L (21-32); Chloride 103 mmol/L (98-108); Estimated CRCL calculation 71 ml/min; Estimated Glomerular Filt Rate > 60; Glucose 199 mg/dL (70-99); Osmolality Calculated 294 mOsm/kg (285-295); Potassium 3.6 mmol/L (3.5-5.1); Sodium 139 mmol/L (136-145); Total Protein 6.1 g/dL (6.4-8.2); Vancomycin Random 19.9 ug/mL (10-20)
[2024-02-09 09:22] LABS: CRP < 0.5 mg/dL (0.0-0.9)
== END 2024-02-09 07:58 | disposition home or self-care (01) ==
LOC: CHSTREATRM 08:01
PROVIDERS: PCP Family Medicine; Visit Provider Orthopaedic Surgery
DX: M71.162 Other infective bursitis, left knee (principal)
CPT/HCPCS: 36415; 36591; 80053; 80202; 85025; 86140

== ENCOUNTER 2024-02-16 07:52 | Outpatient (CLI) | payer OTHER, SELFPAY ==
[2024-02-16 08:10] VITALS: BP 148/68; PULSE 77; RESP 18; TEMP 36.1
[2024-02-16] MEDS: HEPARIN SODIUM LOCK FLUSH 500 UNITS/5 ML SYRINGE IV PUSH (08:26)
[2024-02-16 08:31] VITALS: BMI 26.6
--- NOTE | 2024-02-16 08:33 | PC.NURSE ---
0800 patient arrived and taken to 201 for PICC line blood draw and dressing change, 0810 vitals taken and lab notified of need for tubes 0815 blood drawn from PICC line, flushed with saline and heparin, tolerated well 0820 dressing change completed using sterile technique, tolerated well no sign of infection noted, to see doctor tomorrow for PICC line removal, last doses of medication will be today per patient 0830 discharged ambulatory to home, follow previous discharge instructions related to PICC line and medications
[2024-02-16 08:35] LABS: Hematocrit 31.6 % (40.0-54.0); Hemoglobin 11.2 g/dL (14.0-18.0); Mean Corpuscular HGB Conc 35.4 g/dL (32-36); Mean Corpuscular Hemoglobin 31.9 pg (27.0-31.0); Mean Platelet Volume 11.7 fl (8.7-11.0); Platelet Count Result 155 K/mm3 (150-420); Red Blood Count 3.51 M/mm3 (4.70-6.10); White Blood Count 5.7 K/mm3 (4.8-10.8)
[2024-02-16 09:24] LABS: Alanine Aminotransferase 19 U/L (16-63); Alkaline Phosphatase 89 U/L (46-116); Anion Gap 5 mmol/L (4-12); Aspartate Amino Transferase 19 U/L (15-37); Bilirubin,Total 0.6 mg/dL (0.00-1.00); Blood Urea Nitrogen 18 mg/dL (7-18); Calcium 8.3 mg/dL (8.5-10.1); Carbon Dioxide 33 mmol/L (21-32); Chloride 100 mmol/L (98-108); Estimated CRCL calculation 43 ml/min; Estimated Glomerular Filt Rate 44; Glucose 293 mg/dL (70-99); Osmolality Calculated 298 mOsm/kg (285-295); Potassium 3.5 mmol/L (3.5-5.1); Sodium 138 mmol/L (136-145); Total Protein 6.4 g/dL (6.4-8.2)
[2024-02-16 09:32] LABS: Vancomycin Random 40.6 ug/mL (10-20)
--- NOTE | 2024-02-16 09:45 | PC.NURSE ---
contacted Dr Juarez office regarding trough today of 40.6 of vancomycin, called patient and advised to hold medicine until he hears from Dr office regarding dosing.
== END 2024-02-16 08:30 | disposition home or self-care (01) ==
LOC: CHSTREATRM 07:54
PROVIDERS: PCP Family Medicine; Visit Provider Orthopaedic Surgery
DX: M71.162 Other infective bursitis, left knee (principal)
CPT/HCPCS: 36415; 36591; 80053; 80202; 85027; 86140

== ENCOUNTER 2024-02-18 09:51 | Outpatient (CLI) | payer OTHER, SELFPAY ==
[2024-02-18 10:10] VITALS: BP 129/70; PULSE 72; RESP 16; TEMP 36.8; O2SAT 99; BMI 26.1
--- NOTE | 2024-02-18 11:18 | PC.NURSE ---
1049 Patient here picc line removal- procedure complete- tolerated well. SEE Patient care notes.
== END 2024-02-18 09:52 | disposition home or self-care (01) ==
PROVIDERS: PCP Family Medicine; Visit Provider Orthopaedic Surgery
DX: Z45.2 Encounter for adjustment and management of vascular access device (principal); M71.162 Other infective bursitis, left knee
CPT/HCPCS: 99211; G0463

== ENCOUNTER 2024-02-29 15:29 | Outpatient (CLI) | payer OTHER, SELFPAY ==
[2024-02-29 15:40] LABS: Basophils Absolute Auto 0.08 K/mm3 (0.00-0.10); Basophils Percent Auto 0.8 % (0.0-1.0); Eosinophils Absolute Auto 0.09 K/mm3 (0.02-0.50); Hematocrit 35.6 % (40.0-54.0); Hemoglobin 12.2 g/dL (14.0-18.0); Immature Granulocyte Absolute 0.03 K/mm3 (0.00-0.00); Immature Granulocyte Percent A 0.3 % (0.0-0.0); Lymphocytes Absolute Auto 1.53 K/mm3 (1.10-4.50); Lymphocytes Percent Auto 16.2 % (18.0-42.0); Mean Corpuscular HGB Conc 34.3 g/dL (32-36); Mean Corpuscular Hemoglobin 30.7 pg (27.0-31.0); Mean Corpuscular Volume 89.7 fL (78.0-102.0); Mean Platelet Volume 11.1 fl (8.7-11.0); Monocytes Absolute Auto 0.46 K/mm3 (0.10-0.90); Monocytes Percent Auto 4.9 % (2.0-11.0); Neutrophils Absolute Auto 7.23 K/mm3 (1.70-7.20); Neutrophils Percent Auto 76.8 % (50.0-70.0); Platelet Count Result 222 K/mm3 (150-420); Red Blood Count 3.97 M/mm3 (4.70-6.10); Red Cell Distribution Width 11.8 % (11.6-14.4); White Blood Count 9.4 K/mm3 (4.8-10.8)
[2024-02-29 16:31] LABS: Alanine Aminotransferase 28 U/L (16-63); Albumin Level 3.7 g/dL (3.4-5.0); Alkaline Phosphatase 107 U/L (46-116); Anion Gap 6 mmol/L (4-12); Aspartate Amino Transferase 14 U/L (15-37); Bilirubin,Total 0.4 mg/dL (0.00-1.00); Blood Urea Nitrogen 26 mg/dL (7-18); Carbon Dioxide 34 mmol/L (21-32); Chloride 98 mmol/L (98-108); Estimated Glomerular Filt Rate 39; Glucose 169 mg/dL (70-99); Osmolality Calculated 294 mOsm/kg (285-295); Potassium 3.7 mmol/L (3.5-5.1); Sodium 138 mmol/L (136-145)
[2024-02-29 17:14] LABS: Erythrocyte Sedimentation Rate 58 mm/hr (0-20)
== END 2024-02-29 15:30 | disposition home or self-care (01) ==
LOC: CHSLAB 15:31
PROVIDERS: PCP Family Medicine; Visit Provider Family Medicine
DX: E11.9 Type 2 diabetes mellitus without complications (principal)
CPT/HCPCS: 36415; 80053; 85025; 85652